=== PATIENT | male | born 1980 | race Hispanic/Latino ===

== ENCOUNTER 2023-11-08 10:50 | Emergency (ER) | payer SELFPAY ==
[2023-11-08 10:50] VITALS: BMI 52.2
[2023-11-08 10:53] VITALS: BP 161/100
[2023-11-08 11:13] LABS: Glucose - Point of Care 304 mg/dl (70-99)
[2023-11-08] MEDS: PERCOCET 5/325 1 TABLET PO (11:13)
--- NOTE | 2023-11-08 11:27 | CM ---
Addendum entered by Nkechi Hamilton RN 11/08/23 12:44:
CM met with patient. CM provided patient with GOOD RX coupon for Doxycycline through [employer]. Patient stated that he is able to purchase his medications bunch with coupon. Patient stated that he uses the over the counter [employer] Insulin and is able
to maintain that until he calls the [facility] [place].
Original Note:
CM was consulted to provide patient with resources as patient is uninsured.
CM met with patient. Patient stated that he felt he was getting depressed and neglected to follow up on his health insurance i.e medicaid renewal. Patient was provided resources on [facility] [place], [facility], [place]
[facility]eds and pamphlet for patient financial services.
CM strongly encourage patient to follow up with [facility] [place] as they can assist with any needs and following up with Medicaid application. Patient was appreciative of help and stated that he plans to follow up.
--- NOTE | 2023-11-08 11:43 | ED.GENMED ---
History of Present Illness
General
Chief Complaint: Skin Problem
Source: patient
Exam Limitations: none
Time Seen by Provider: 11/08/23 10:57
Nursing documentation reviewed up to this point in time: agreed with
Travel History
Have you had any contact with someone who has COVID-19?: No
Do you have any symptoms of coronavirus? Fever > 100 degrees, chills, cough, shortness of breath, sore throat, loss of taste or smell, muscle aches, or headache?: No
History of Present Illness
History of Present Illness:
42-year-old male diabetic hidradenitis currently not working having hard time affording his meds had been on TrulicMilk lost his insurance has been using long-acting insulin twice daily that he buys at [employer] no vomiting, did have some subjective
fever few days ago pain in his right arm multiple lesions throughout his body somewhat drained on their own,
Past History
Past History
ED Past Medical History: HTN, Hypercholesterolemia, IDDM, Psychiatric (Depression) and Other (Abscess, Pancreatitis)
ED Past Surgical History: Cholecystectomy, Orthopedic and Other (Previous abscess drainage)
Social History
Tobacco: Smoker
Alcohol: Occasional
Drug: None
Personal: Single
Living: with family
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
Family History
Family History: Diabetes; Negative CAD
Review of Systems
Review of Systems
All Other Systems: Not applicable
Constitutional: Reports fever
EENT: Reports no symptoms
Respiratory: Reports no symptoms
Cardiac: Reports no symptoms
ABD/GI: Denies abdominal pain or vomiting
: Reports no symptoms
Skin: Reports other (Multiple skin boils in various stages of healing)
Endocrine: Reports polyuria
Hematologic/Lymphatic: Reports no symptoms
Phy Exam
Physical Exam
Physical Exam:
Physical Exam
General: Obese nontoxic male
Neck: 2 x 4 cm tender fluctuant area in the right adnexa
Heart: s1/s2 regular rate and rhythm, no murmur. equal radial pulses.
Lungs: no acute respiratory distress. clear bilaterally
Abdomen: Obese not tender
Neuro: alert and oriented. no focal neurological deficits
Skin: Multiple healing lesions
Psychiatric: well kept. interactive and cooperative
Extremities: no edema.
Course
Orders/Labs/Results
Orders:
Orders
11/08/23 11:05
Oxycodone/Acetaminophen [Percocet 5/325] 1 tablet PO NOW STA
11/08/23 11:06
Bedside Glucose- Treatment ONCE
11/08/23 11:35
Complete Blood Count/With Diff Urgent
Comprehensive Metabolic Panel Urgent
11/08/23 11:45
Blood Culture Urgent
[facility] Source: Blood/Venous
Specimen Description:
11/08/23 11:48
Wound Culture [Wound/Abscess/Other Culture] Routine
[facility] Source: Abscess
Specimen Description:
Date Specimen was Collected: 11/08/23
Time Specimen was Collected: 11:47
Abnormal Lab Results
11/08/23 11/08/23
11:12 11:35
MPV 11.4 H fL
(7.4-10.4)
Abs Immat Gran (auto) 0.1 H 10^3/uL
(0-0.05)
Absolute Neuts (auto) 6.6 H 10^3/uL
(1.4-6.5)
Absolute Monos (auto) 0.8 H 10^3/uL
(0.1-0.6)
Sodium 133 L mmol/L
(135-145)
Creatinine 0.5 L mg/dL
(0.7-1.3)
Glucose 290 H mg/dl
(70-99)
AST 71 H U/L
(17-59)
ALT 90 H U/L
(0-50)
Alkaline Phosphatase 141 H U/L
(38-126)
POC Glucose 304 H mg/dl
(70-99)
11/08/23 11:35
11/08/23 11:35
Vital Signs
Initial and Last Documented VS:
Initial Vital Signs
Temp Pulse Resp BP Pulse Ox
98.3 F 99 16 161/100 98
11/08/23 10:53 11/08/23 10:53 11/08/23 10:53 11/08/23 10:53 11/08/23 10:53
Last Documented Vital Signs
Temp Pulse Resp BP Pulse Ox
98.3 F 99 16 161/100 98
11/08/23 10:53 11/08/23 10:53 11/08/23 10:53 11/08/23 10:53 11/08/23 10:53
Procedures
Incision/Drainage/Joint Aspiration
Right axilla:
Anethesia: 1% Lidocaine with Epi
Preparation: cleaned with Betadine
Nature of site: abscess
Description of abscess: greater than 3cm
How much fluid was obtained?: large amount
Fluid description: purulent
Treatment: left open for drainage
Additional information:
Completed by Teresa ZHENG
MDM/Problems Addressed
Differential Diagnosis Includes:
Hidradenitis, cellulitis, noncompliance uncontrolled diabetes
MDM/Problems Addressed:
Armpit abscess
Chronic conditions affecting care: DM
Acute Exacerbation and/or Progression of Chronic Illness: DM
*Pulse Oximetry
Patient hypoxic: no
*Critical Care Note
Total Time (30-74mins, 75-104mins- exclusive of procedures): Not Applicable
Update Note
Update Note:
Update patient nontoxic Accu-Chek noted will check labs, telephonic case manager seen the patient to try to help him with insurance
Abscess drained labs noted white count okay
ED Attending Note
-
Portions of this chart may have been created with voice recognition software.� Occasional wrong word or��sound alike� substitutions may have occurred due to the inherent limitations of voice recognition software.
Discharge Plan
Departure
Patient Disposition: Home (Routine Discharge)
Date of Disposition: 11/08/23
Time of Disposition: 12:13
Patient with high blood pressure during this ER visit?: No
Condition: Good
Discharge Problem:
Hidradenitis suppurativa
Instructions: Cellulitis (Skin Infection), Adult (DC), Skin Abscess
Prescriptions:
New
doxycycline monohydrate 100 mg tablet
100 mg PO BID Qty: 20 0RF
ibuprofen 600 mg tablet
600 mg PO Q8H PRN (Reason: fever or pain) Qty: 20 0RF
No Action
lisinopril 20 MG tablet
20 mg PO DAILY
metformin 1,000 MG tablet
1,000 mg PO BID@0800,1700
acetaminophen 325 MG tablet
650 mg PO Q6HPRN PRN (Reason: mild pain/ fever>100.5F) 0RF
amlodipine 5 MG tablet
5 mg PO DAILY Qty: 30 0RF
celecoxib 200 MG capsule
200 mg PO DAILY
insulin glargine [Basaglar KwikPen U-100 Insulin] 100 UNIT/ML insulin pen
22 unit SQ HS
ibuprofen 200 MG tablet
200 mg PO PRN PRN (Reason: fever)
clindamycin HCl 300 MG capsule
300 mg PO TID Qty: 29 0RF
tramadol [Ultram] 50 MG tablet
50 mg PO Q4HPRN PRN (Reason: pain) Qty: 10 0RF
ibuprofen 800 MG tablet
800 mg PO QIDPRN PRN (Reason: pain, fever. Take with food.) Qty: 30 0RF
amlodipine 5 MG tablet
5 mg PO DAILY Qty: 90 0RF
doxycycline hyclate 100 MG tablet
100 mg PO BID Qty: 20 0RF
hydrocodone-acetaminophen 1 TABLET tablet
1 tab PO Q4HPRN PRN (Reason: Pain) Qty: 10 0RF
oxycodone-acetaminophen 5 MG/325 MG tablet
1 tab PO Q6HPRN PRN (Reason: pain) Qty: 12 0RF
sulfamethoxazole-trimethoprim 1 TABLET tablet
1 tab PO BID Qty: 5 0RF
cephalexin 500 MG capsule
500 mg PO QID Qty: 30 0RF
pantoprazole 40 MG tablet,delayed release (DR/EC)
40 mg PO DAILY Qty: 10 0RF
oxycodone 5 MG tablet
5 mg PO Q6HPRN PRN (Reason: severe pain) Qty: 9 0RF
doxycycline hyclate 100 MG capsule
100 mg PO Q12 Qty: 10 0RF
hydrocodone-acetaminophen 5-300 mg tablet
1 tab PO Q8H PRN (Reason: pain) Qty: 10 0RF
clindamycin HCl 300 mg capsule
300 mg PO TID Qty: 30 0RF
hydrocodone-acetaminophen 5-325 mg tablet
1 tab PO Q6H PRN (Reason: pain) Qty: 7 0RF
clindamycin HCl 150 mg capsule
450 mg PO Q8H 7 Days Qty: 63 0RF
oxycodone 5 mg tablet
5 mg PO Q8H PRN (Reason: pain) Qty: 7 0RF
sulfamethoxazole-trimethoprim [Bactrim DS] 800-160 mg tablet
1 tab PO BID Qty: 14 0RF
hydrocodone-acetaminophen 5-300 mg tablet
1 tab PO Q8H PRN (Reason: Pain) Qty: 10 0RF
doxycycline hyclate 100 mg capsule
100 mg PO BID 10 Days Qty: 20 0RF
cephalexin 500 mg capsule
500 mg PO QID 7 Days Qty: 28 0RF
hydrocodone-acetaminophen 5-300 mg tablet
1 tab PO Q8H PRN (Reason: Pain) Qty: 10 0RF
cephalexin 500 mg capsule
500 mg PO Q6H 10 Days Qty: 40 0RF
hydrocodone-acetaminophen 5-325 mg tablet
1 tab PO Q4H PRN (Reason: Pain) Qty: 10 0RF
hydrocodone-acetaminophen 5-325 mg tablet
1 tab PO Q8H PRN (Reason: Pain) Qty: 10 0RF
Referrals:
NONE,* [Active] -
Charlie Alves MD [Active] - Next open appointment
Kadi Bland MD [Family Provider] -
Activity Restrictions/Additional Instructions:
Follow-up with an [facility] or the residency clinic and oriented as instructed by case management
Interventions
Interventions:
*Risk Screen - Suicide Last Done: 11/08/23 11:15
*General Assessment Last Done: 11/08/23 11:15
*Neglect/Abuse Screening Last Done: 11/08/23 11:15
*ED COVID-19 Vaccine History Last Done: 11/08/23 10:53
ED-Skin Assessment Last Done: 11/08/23 11:15
[2023-11-08 11:47] LABS: % Basophils 0.2 % (0-2); % Eosinophils 1.2 % (0-6); % Immature Granulocytes 0.5 % (0-0.5); % Lymphocytes 21.5 % (20.5-51.1); % Neutrophils 68.6 % (42.2-75.2); Absolute Eosinophils 0.1 10^3/uL (0-0.7); Absolute Immature Granulocytes 0.1 10^3/uL (0-0.05); Absolute Lymphocytes 2.1 10^3/uL (1.2-3.4); Absolute Monocytes 0.8 10^3/uL (0.1-0.6); Absolute Neutrophils 6.6 10^3/uL (1.4-6.5); Hematocrit 44.2 % (39.0-52.0); Hemoglobin 14.7 g/dL (13.0-18.0); Mean Corp Hgb Conc. 33.3 g/dL (33.0-37.0); Mean Corpuscular Hgb 29.9 pg (27.0-31.0); Mean Corpuscular Volume 89.8 fL (80.0-94.0); Mean Platelet Volume 11.4 fL (7.4-10.4); Nucleated Red Blood Cells % 0 % (-); Platelet Count 183 10^3/uL (130-400); Red Blood Cell Count 4.92 10^6/uL (4.70-6.10); Red Cell Dist. Width 13.1 % (11.5-14.5); White Blood Cell Count 9.6 10^3/uL (4.8-10.8)
[2023-11-08 12:03] LABS: ALT (SGPT) 90 U/L (0-50); AST (SGOT) 71 U/L (17-59); Albumin 3.6 g/dl (3.5-5.0); Alkaline Phosphatase 141 U/L (38-126); Blood Urea Nitrogen 15 mg/dl (9-20); Calcium 8.6 mg/dl (8.4-10.2); Carbon Dioxide 27 mmol/L (22-30); Chloride 102 mmol/L (98-107); Estimated Creatinine Clearance > 125 ml/min; Glucose 290 mg/dl (70-99); Potassium 4.1 mmol/L (3.5-5.1); Sodium 133 mmol/L (135-145); Total Bilirubin 0.7 mg/dl (0.2-1.3); Total Protein 6.6 g/dl (6.3-8.2); eGFR > 60.00
== END 2023-11-08 13:21 | disposition home or self-care (01) ==
LOC: EMR 10:50
PROVIDERS: EMERGENCY PHYSICIAN Emergency Medicine; FAMILY PHYSICIAN Student in an Organized Health Care Education/Training Program
DX: L73.2 Hidradenitis suppurativa (principal); F17.200 Nicotine dependence, unspecified, uncomplicated; E11.9 Type 2 diabetes mellitus without complications; Z79.4 Long term (current) use of insulin
CPT/HCPCS: 99283; 10060; 80053; 82962; 85025; 87040; 87070; 87071; 87186; 87205

== ENCOUNTER 2023-11-18 14:33 | Inpatient (IN) | payer OTHER, SELFPAY ==
[2023-11-18 08:49] VITALS: BP 188/98
[2023-11-18 10:02] LABS: % Basophils 0.4 % (0-2); % Eosinophils 1.1 % (0-6); % Immature Granulocytes 0.4 % (0-0.5); % Lymphocytes 20.3 % (20.5-51.1); % Monocytes 6.4 % (1.7-9.3); % Neutrophils 71.4 % (42.2-75.2); Absolute Eosinophils 0.1 10^3/uL (0-0.7); Absolute Immature Granulocytes 0.1 10^3/uL (0-0.05); Absolute Lymphocytes 2.3 10^3/uL (1.2-3.4); Absolute Monocytes 0.7 10^3/uL (0.1-0.6); Hematocrit 44.8 % (39.0-52.0); Hemoglobin 15.2 g/dL (13.0-18.0); Mean Corp Hgb Conc. 33.9 g/dL (33.0-37.0); Mean Corpuscular Volume 88.5 fL (80.0-94.0); Mean Platelet Volume 10.9 fL (7.4-10.4); Nucleated Red Blood Cells % 0 % (-); Platelet Count 208 10^3/uL (130-400); Red Blood Cell Count 5.06 10^6/uL (4.70-6.10); Red Cell Dist. Width 12.9 % (11.5-14.5); White Blood Cell Count 11.2 10^3/uL (4.8-10.8)
--- NOTE | 2023-11-18 10:03 | ED.GENMED ---
History of Present Illness
General
Chief Complaint: Skin Problem
Source: patient
Time Seen by Provider: 11/18/23 09:26
Travel History
Have you had any contact with someone who has COVID-19?: No
Do you have any symptoms of coronavirus? Fever > 100 degrees, chills, cough, shortness of breath, sore throat, loss of taste or smell, muscle aches, or headache?: No
History of Present Illness
History of Present Illness:
42-year-old male with past medical history of hypertension, hyperlipidemia, diabetes, hidradenitis suppurativa presenting to the emergency department for evaluation of 2 suspected abscesses to the left upper thigh and suprapubic region. Patient was
seen in this emergency department about 10 days ago for an abscess to his right axillary region. He notes that he has been taking the antibiotics prescribed to him as requested. Patient notes that his hidradenitis had been under control for quite
some time. He is overall unsure as to why he has had these recurring instances over the last 2 weeks. Patient notes that his blood sugars have been quite elevated over the last few weeks. Of note, patient lost his insurance and has been unable to
follow-up with any medical care provider. He notes that he had been on Trulicity previously and doing well with his diabetes but after he was unable to fill this any longer he went back to only long-acting insulin in the morning and evening but
notes that he had been previously on insulin with meals as well but was unable to take this. Patient also notes that he is running out of his lisinopril. He is not sure when he will be able to follow-up with any other medical care provider.
Past History
Past History
ED Past Medical History: HTN, Hypercholesterolemia, IDDM, Psychiatric (Depression) and Other (Abscess, Pancreatitis)
ED Past Surgical History: Cholecystectomy, Orthopedic and Other (Previous abscess drainage)
Social History
Tobacco: Smoker
Alcohol: Occasional
Drug: None
Personal: Single
Living: with family
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
Family History
Family History: Diabetes; Negative CAD
Review of Systems
Review of Systems
All Other Systems: ROS reviewed and negative except as documented in HPI and ROS
Phy Exam
Physical Exam
Physical Exam:
GENERAL: Alert , in no apparent distress
EYE: conjunctiva clear
NECK: Supple, no significant adenopathy.
ENT: o/p clr, mmm.
CARDIAC: Regular rate and rhythm
LUNGS: Clear breath sounds bilaterally, no acute respiratory distress, no wheezes/rales/rhonchi
NEUROLOGICAL: Alert and oriented
SKIN: Warm and dry, 2 small punctate abscesses. The left thigh is approximately 1 cm in size, mild surrounding erythema, fluctuant and tender to touch. The suprapubic abscess is less than 8 mm, indurated, no fluctuance and very tender to touch.
MUSCULOSKELETAL: well perfused.
PSYCH: Normal and appropriate interaction.
Scores
Heart Failure Risk
Heart Failure Risk Score: Not Applicable
Heart Score for Chest Pain Patients
STEMI patient?: Not applicable
Withdrawal Assessment of Alcohol
Withdrawal Assessment Completed?: Not applicable
Course
Orders/Labs/Results
Orders:
Orders
11/18/23 09:49
Complete Blood Count/With Diff Urgent
Comprehensive Metabolic Panel Urgent
Hemoglobin A1c [Glycohemoglobin (HgbA1c)] Urgent
11/18/23 09:50
Ketorolac [Toradol] 30 mg IV NOW STA
Morphine Sulfate 2 mg IV NOW STA
11/18/23 10:15
Ampicillin/Sulbactam 3 G [Unasyn] 3 gm 0.9% Sodium Chloride 100 ml [Nss] 100 ml IV NOW
11/18/23 10:36
0.9% Sodium Chloride 1000 ml [Nss] 1,000 ml IV BOLUS
Abnormal Lab Results
11/18/23
09:49
WBC 11.2 H 10^3/uL
(4.8-10.8)
MPV 10.9 H fL
(7.4-10.4)
Abs Immat Gran (auto) 0.1 H 10^3/uL
(0-0.05)
Absolute Neuts (auto) 8.0 H 10^3/uL
(1.4-6.5)
Absolute Monos (auto) 0.7 H 10^3/uL
(0.1-0.6)
Lymphocytes % 20.3 L %
(20.5-51.1)
Sodium 134 L mmol/L
(135-145)
Creatinine 0.4 L mg/dL
(0.7-1.3)
Glucose 347 H mg/dl
(70-99)
ALT 79 H U/L
(0-50)
Alkaline Phosphatase 150 H U/L
(38-126)
11/18/23 09:49
11/18/23 09:49
Vital Signs
Initial and Last Documented VS:
Initial Vital Signs
Temp Pulse Resp BP Pulse Ox
98.5 F 99 16 188/98 98
11/18/23 08:49 11/18/23 08:49 11/18/23 08:49 11/18/23 08:49 11/18/23 08:49
Last Documented Vital Signs
Temp Pulse Resp BP Pulse Ox
98.5 F 96 20 188/98 98
11/18/23 08:49 11/18/23 10:53 11/18/23 10:53 11/18/23 08:49 11/18/23 10:53
Procedures
Incision/Drainage/Joint Aspiration
Left Upper Anterior Thigh:
Anethesia: 1% Lidocaine
Preparation: cleaned with Hibiclens
Type of procedure: incise
Nature of site: abscess
Description of abscess: less than 3cm
Loculations broken up: No
How much fluid was obtained?: large amount
Fluid description: purulent and blood tinged
Treatment: left open for drainage
MDM/Problems Addressed
Differential Diagnosis Includes:
Recurring hidradenitis, uncontrolled diabetes, cellulitis
MDM/Problems Addressed:
42-year-old male with past medical history of hidradenitis presenting to the emergency department for 2 new small abscesses/areas of cellulitis to the left thigh and suprapubic region. Patient notes significant discomfort. He has been on
doxycycline for 10 days, today is the last day but he states this did not seem to help him. He denies any fevers. I am concerned about patient's ability to follow-up as he currently does not have insurance, his usual medications have all been
discontinued and he is attempting to treat his chronic medical conditions with medications that clearly are not helping enough. Patient arrives here quite hypertensive, his diabetes clearly not under control which could likely be contributing to
his recurring infections. Will check labs. Pain control with Toradol and low-dose morphine as patient is in considerable discomfort. Will attempt incision and drainage of the abscess to the left thigh. Unasyn ordered. Anticipate admission.
Chronic conditions affecting care: DM
Acute Exacerbation and/or Progression of Chronic Illness: DM
*Pulse Oximetry
Patient hypoxic: no
*Critical Care Note
Total Time (30-74mins, 75-104mins- exclusive of procedures): Not Applicable
Data Reviewed
Review of Other/Old Records Reveals: Records
Patient Management
Discussion with other providers: Hospitalist
Escalation/DeEscalation of care consider admission/obs:
Patient's lab findings noted for mild leukocytosis. He has hyperglycemia with a glucose of 347. Anion gap is 8. There is no acidemia. Patient does have mildly chronic elevated ALT and alkaline phosphatase. Given his lack of outpatient
follow-up, failed outpatient antibiotics and clearly uncontrolled diabetes will admit for further evaluation, hopefully medication adjustments for his diabetes and outpatient management. Patient is agreeable with this plan. Patient does note an
improved pain following medications.
ED Attending Note
-
Portions of this chart may have been created with voice recognition software.� Occasional wrong word or��sound alike� substitutions may have occurred due to the inherent limitations of voice recognition software.
Discharge Plan
Departure
Patient Disposition: Admit
Date of Disposition: 11/18/23
Time of Disposition: 10:38
Presentation/result/management discussed w/ accepting MD/DO: Hospitalist
Discharge Problem:
Abscess of left thigh, Cellulitis of suprapubic region, Diabetes mellitus with hyperglycemia
Prescriptions:
No Action
lisinopril 20 MG tablet
20 mg PO DAILY
metformin 1,000 MG tablet
1,000 mg PO BID@0800,1700
acetaminophen 325 MG tablet
650 mg PO Q6HPRN PRN (Reason: mild pain/ fever>100.5F) 0RF
amlodipine 5 MG tablet
5 mg PO DAILY Qty: 30 0RF
celecoxib 200 MG capsule
200 mg PO DAILY
insulin glargine [Basaglar KwikPen U-100 Insulin] 100 UNIT/ML insulin pen
22 unit SQ HS
ibuprofen 200 MG tablet
200 mg PO PRN PRN (Reason: fever)
clindamycin HCl 300 MG capsule
300 mg PO TID Qty: 29 0RF
tramadol [Ultram] 50 MG tablet
50 mg PO Q4HPRN PRN (Reason: pain) Qty: 10 0RF
ibuprofen 800 MG tablet
800 mg PO QIDPRN PRN (Reason: pain, fever. Take with food.) Qty: 30 0RF
amlodipine 5 MG tablet
5 mg PO DAILY Qty: 90 0RF
doxycycline hyclate 100 MG tablet
100 mg PO BID Qty: 20 0RF
hydrocodone-acetaminophen 1 TABLET tablet
1 tab PO Q4HPRN PRN (Reason: Pain) Qty: 10 0RF
oxycodone-acetaminophen 5 MG/325 MG tablet
1 tab PO Q6HPRN PRN (Reason: pain) Qty: 12 0RF
sulfamethoxazole-trimethoprim 1 TABLET tablet
1 tab PO BID Qty: 5 0RF
cephalexin 500 MG capsule
500 mg PO QID Qty: 30 0RF
pantoprazole 40 MG tablet,delayed release (DR/EC)
40 mg PO DAILY Qty: 10 0RF
oxycodone 5 MG tablet
5 mg PO Q6HPRN PRN (Reason: severe pain) Qty: 9 0RF
doxycycline hyclate 100 MG capsule
100 mg PO Q12 Qty: 10 0RF
hydrocodone-acetaminophen 5-300 mg tablet
1 tab PO Q8H PRN (Reason: pain) Qty: 10 0RF
clindamycin HCl 300 mg capsule
300 mg PO TID Qty: 30 0RF
hydrocodone-acetaminophen 5-325 mg tablet
1 tab PO Q6H PRN (Reason: pain) Qty: 7 0RF
clindamycin HCl 150 mg capsule
450 mg PO Q8H 7 Days Qty: 63 0RF
oxycodone 5 mg tablet
5 mg PO Q8H PRN (Reason: pain) Qty: 7 0RF
sulfamethoxazole-trimethoprim [Bactrim DS] 800-160 mg tablet
1 tab PO BID Qty: 14 0RF
hydrocodone-acetaminophen 5-300 mg tablet
1 tab PO Q8H PRN (Reason: Pain) Qty: 10 0RF
doxycycline hyclate 100 mg capsule
100 mg PO BID 10 Days Qty: 20 0RF
cephalexin 500 mg capsule
500 mg PO QID 7 Days Qty: 28 0RF
hydrocodone-acetaminophen 5-300 mg tablet
1 tab PO Q8H PRN (Reason: Pain) Qty: 10 0RF
cephalexin 500 mg capsule
500 mg PO Q6H 10 Days Qty: 40 0RF
hydrocodone-acetaminophen 5-325 mg tablet
1 tab PO Q4H PRN (Reason: Pain) Qty: 10 0RF
hydrocodone-acetaminophen 5-325 mg tablet
1 tab PO Q8H PRN (Reason: Pain) Qty: 10 0RF
doxycycline monohydrate 100 mg tablet
100 mg PO BID Qty: 20 0RF
ibuprofen 600 mg tablet
600 mg PO Q8H PRN (Reason: fever or pain) Qty: 20 0RF
oxycodone 5 mg capsule
5 mg PO Q8H PRN (Reason: Pain) Qty: 10 0RF
oxycodone 5 mg tablet
5 mg PO Q8H PRN (Reason: Pain) Qty: 10 0RF
Rx Instructions:
[address] [place] [id number]
Referrals:
PRIVATE,PHYSICIAN [Family Provider] -
Interventions
Interventions:
*Risk Screen - Suicide Last Done: 11/18/23 09:34
*General Assessment Last Done: 11/18/23 09:34
*Neglect/Abuse Screening Last Done: 11/18/23 09:34
*ED COVID-19 Vaccine History Last Done: 11/18/23 08:49
[2023-11-18 10:11] LABS: ALT (SGPT) 79 U/L (0-50); AST (SGOT) 53 U/L (17-59); Albumin 3.5 g/dl (3.5-5.0); Alkaline Phosphatase 150 U/L (38-126); Blood Urea Nitrogen 11 mg/dl (9-20); Carbon Dioxide 28 mmol/L (22-30); Chloride 98 mmol/L (98-107); Glucose 347 mg/dl (70-99); Potassium 4.2 mmol/L (3.5-5.1); Sodium 134 mmol/L (135-145); Total Bilirubin 0.6 mg/dl (0.2-1.3); Total Protein 7.2 g/dl (6.3-8.2); eGFR > 60.00
[2023-11-18] MEDS: MORPHINE SULFATE 2 MG IV ×4 (10:11→23:23)
[2023-11-18] MEDS: TORADOL 30 MG IV (10:11)
[2023-11-18] MEDS: UNASYN IV ×3 (10:36→23:15)
[2023-11-18] MEDS: NSS 1000 IV ×2 (11:21→16:50)
[2023-11-18 11:28] LABS: Glycohemoglobin (HgbA1c) 11.6 % (4.0-5.6)
--- NOTE | 2023-11-18 13:02 | HPS.HSE ---
Family Physician
-
Family Physician: PHYSICIAN PRIVATE
Chief Complaint
-
abscess
History of Present Illness
Ms. Lalit Lamb is a 42 yo woman with hx HTN, HLD, DM, hidradenitis suppurativa with recent ER visit 10 days ago for abscess in right axillary region prescribed doxycycline presents to the ER for new left thigh and suprapubic region abscess.
Patient states that he has had a lot of flares of HS over past few months, sometimes letting it drain at home. He has had multiple ER visits in past. He has been taking doxycycline from last visit but increased pain left thigh and right suprapubic
region. He is tearful from pain. Patient states he does not work although has an interview tomorrow. He has no insurance and has run out of his Repaglinide, HCTZ. He is taking Lantus which he thinks controls his blood sugars worse than Tresiba
which he was on before.
No fevers/chills. No chest pain. He smokes cigarettes and requests nicotine patch. No abdominal pain. No nausea/vomiting. He states that he is trying to lose weight.
Medical History
Past Medical History
Past Medical History: Reports Other (HTN, HLD, DM, hidradenitis suppurativa)
Past Surgical History: Reports Cholecystectomy and Orthopedic
Social History
Tobacco: Smoker
Alcohol: Occasional
Family History
Family History: Not pertinent
Allergies / Home Medications
Allergies reflects when Allergies were last updated in [facility].
Home Medications with original date entered in [facility]
Allergy/Medication List:
Allergies
Allergy/AdvReac Type Severity Reaction Status Date / Time
shellfish derived Allergy Anaphylaxis Verified 11/18/23 08:50
Home Medications
lisinopril 20 mg tablet 40 mg PO DAILY Blood pressure 01/23/20
metformin 1,000 mg tablet 1,000 mg PO BID@0800,1700 Diabetes 01/23/20
insulin glargine 100 unit/mL (3 mL) subcutaneous pen (Basaglar KwikPen U-100 Insulin) 35 unit SQ BID 04/14/20
doxycycline monohydrate 100 mg capsule 100 mg PO BID 11/18/23
ibuprofen 400 mg tablet 400 mg PO Q6HPRN PRN mildpain 11/18/23
repaglinide 0.5 mg tablet 0.5 mg PO DAILY 11/18/23
repaglinide 1 mg tablet 1 mg PO HS 11/18/23
Review of Systems
-
History Source: Patient
A 12 point ROS was completed and negative except as noted: Yes
Physical Exam
Vital Signs
Vital Signs
Temp Pulse Resp BP Pulse Ox
98.5 F 96 20 188/98 98
11/18/23 08:49 11/18/23 10:53 11/18/23 10:53 11/18/23 08:49 11/18/23 10:53
Physical Exam
General: Conversant and Obese
HEENT: PERRLA
Respiratory: Clear; No Wheezes
Cardiac: S1/S2 and Regular Rhythm
GI: Soft and Non Tender
Musculoskeletal: Other (left thigh with area tenderness s/p I&D; suprapubic region with area significant tenderness + induration)
Skin: Warm and Dry
Neuro: AO x 3
Psych: Anxious and Depressed
Laboratory Results
-
11/18/23 09:49
11/18/23 09:49
Laboratory Results
Total Bilirubin 0.6 mg/dl (0.2-1.3) 11/18/23 09:49
AST 53 U/L (17-59) 11/18/23 09:49
ALT 79 U/L (0-50) H 11/18/23 09:49
Alkaline Phosphatase 150 U/L (38-126) H 11/18/23 09:49
Data Reviewed
-
Diagnostic Radiology: Report Reviewed by me
Lab Data: Labs Reviewed by me
Impression/Plan
-
Mr. Lalit Lamb is a 42 yo man with hx HTN, HLD, DM, hidradenitis suppurativa with recent ER visit 10 days ago for abscess in right axillary region prescribed doxycycline presents to the ER for new left thigh and suparpubic region abscess.
Triage VS: T 98.5, P 99, RR 16, BP 188/98, SpO2 98%
LABS: WBC 11.2, Hg 15.2, PLT 208, Na 134, K+ 4.2, Cr 0.4, Glucose 347, A1c 11.6%, T. Bili 0.6, ALT 79, Alk Phos 150
s/p I&D left thigh abscess in ER
MAR: IV Unasyn, Toradol, morphine, IVF
Hidradenitis Suppurativa
Recurrent abscesses
-patient has had multiple ER visits with I&D in past; most recently 11/08 s/p I&D growing Proteus. He has been on Doxycyline with development new abscesses
-s/p I&D left thigh abscess in ER; no culture from today
-warrants admission status with failure to improve on outpatient antibiotics
-admit on IV Vanc/IV Unasyn
-US suprapubic region now given significant tenderness - deeper abscess?
-Toradol/oxy PRN pain with morphine for breakthrough
Hyperglycemia
Poorly Controlled DM II
Insulin Dependent Diabetes
-home regimen is metformin 1G BID; repaglinide 0.5mg AM; 1mg qPM; Lantus 35 units subQ BID
-resume home regimen here
-diabetic diet
-DM ENTRY LEVEL STAFF ACCOUNTANT consult - may need to be texted on Sunday
-ISS moderate
Essential Hypertension
-ANIMAL CRUELTY INVESTIGATOR lisinopril
Hyperlipidemia
-ANIMAL CRUELTY INVESTIGATOR statin
DVT PPx lovenox subQ
FULL CODE
[2023-11-18 13:40] LABS: Glucose - Point of Care 263 mg/dl (70-99)
[2023-11-18 13:43] VITALS: BP 178/88; BMI 52.5
--- NOTE | 2023-11-18 13:57 | PHA.VAN.IN ---
Assessment
- Assessment
Renal Function: Appears similar to baseline
Renal Function may be Overestimated due to: bmi>50
- Previous Dosing Experience
Previous Regimen: 1250mg q8h
Date of Regimen: 02/2020
Provided AUC of: 246
Patient's SCR is: Decreased compared to previous dosing experience
Patient's weight is: Elevated compared to previous dosing experience (166kg (now)vs 155kg (02/2020))
peak drawn >3hrs after previous dose, AUC might not be accurate representation of true level
AUC Dosing Plan
- Dosing Variables
Dosing Weight (kg): 166
Dosing CrCl (ml/min): 125
Vd coefficient (L/kg): 0.4
- Empiric Dosing
Initial / Loading Dose: 2000mg
Maintenance Regimen: 1250mg q8h
Estimated AUC (mcg*h/mL): 565
Estimated Peak (mcg*h/mL): 32.5
Estimated Trough (mcg/ml): 16.1
Estimated Half Life (H): 6.4
- Monitoring
No levels ordered at this time: consider at steady state
Pharmacokinetics Vancomycin I
- -
Patient Age: 42
Patient Sex: Male
Vancomycin Day #: 1
Indication: Skin And Soft Tissue
Requesting Provider: Dr. Jim
Height / Weight:
Height 5 ft 10 in
Actual Weight 166 kg
IBW in k
- Vital Signs / Lab Results
Temp Pulse Resp BP Pulse Ox
98.5 F 88 22 178/88 98
11/18/23 08:49 11/18/23 13:43 11/18/23 13:43 11/18/23 13:43 11/18/23 13:43
Lab Results - Hematology
11/18/23
09:49
WBC 11.2 H
Lab Results - Chemistry
11/18/23
09:49
BUN 11
Creatinine 0.4 L
Albumin 3.5
[2023-11-18] MEDS: VANCOCIN 540 MG IV (15:13)
[2023-11-18] MEDS: NOVOLOG vial 5 UNITS SC (15:13)
[2023-11-18 16:36] VITALS: BP 166/91
[2023-11-18 16:40] VITALS: BMI 50.5
[2023-11-18] MEDS: ROXICODONE 5 MG PO ×2 (16:50→21:22)
[2023-11-18] MEDS: NICODERM TRANSDERMAL 21 MG TRANSDERM (16:50)
[2023-11-18] MEDS: GLUCOPHAGE 1000 MG PO (16:51)
--- NOTE | 2023-11-18 17:00 | PTCARENOTE ---
Received pt from ER.Pt awake alert and oriented x3 Pt c/o pain in groin and left abd/ upper thigh, Medicated per orders. Pt has abscess in groin and open abscess on Left upper thigh under abd fold which has serosanguineous drainage, 4X4 in place. Pt
VSS 97% on RA. Bp elevated but improving since ER. Pt oriented to room, call barrientos within reach, plan of care ongoing.
[2023-11-18] MEDS: LOVENOX 40 MG SC (17:24)
[2023-11-18 17:25] LABS: Glucose - Point of Care 241 mg/dl (70-99)
[2023-11-18] MEDS: NOVOLOG FLEXPEN-MODERATE RESISTANCE 3 UNITS SC (17:25)
[2023-11-18 19:23] VITALS: BP 170/97
[2023-11-18 21:02] LABS: Glucose - Point of Care 216 mg/dl (70-99)
[2023-11-18] MEDS: LANTUS 0.200000000000000011 UNITS SC (21:10)
[2023-11-18] MEDS: PRANDIN 1 MG PO (21:11)
[2023-11-18] MEDS: DESENEX/MITRAZOL/ZEASORB 1 APPLIC TOPICAL (21:12)
[2023-11-18 22:25] VITALS: BP 152/90
[2023-11-18 23:09] VITALS: BP 171/107
--- NOTE | 2023-11-18 23:40 | PTCARENOTE ---
Patient's blood pressure elevated overnight, 170s/90s-100s. Patient complaining of headache as well as pain to abscess sites. PRN pain medications given as ordered. MAINTENANCE AND REPAIR WORKER made aware, 1x dose of lisinopril ordered. Patient stated he took his AM
lisinopril prior to coming into the hospital and refused additional dose. MAINTENANCE AND REPAIR WORKER made aware, no new orders at this time.
[2023-11-19] MEDS: ROXICODONE 5 MG PO ×5 (02:49→22:10)
[2023-11-19 03:04] VITALS: BP 138/87
[2023-11-19] MEDS: UNASYN IV ×3 (05:15→17:39)
[2023-11-19] MEDS: MORPHINE SULFATE 2 MG IV ×3 (05:29→19:58)
[2023-11-19] MEDS: VANCOCIN 275 MG IV ×3 (05:50→21:24)
[2023-11-19 05:59] VITALS: BMI 50.7
[2023-11-19] MEDS: TYLENOL 650 MG PO ×2 (06:03→11:45)
[2023-11-19 07:30] VITALS: BP 135/81
[2023-11-19 07:35] LABS: Glucose - Point of Care 156 mg/dl (70-99)
[2023-11-19] MEDS: NICODERM TRANSDERMAL 21 MG TRANSDERM (08:02)
[2023-11-19] MEDS: LANTUS 0.200000000000000011 UNITS SC (08:03)
[2023-11-19] MEDS: GLUCOPHAGE 1000 MG PO ×2 (08:04→17:38)
[2023-11-19] MEDS: PRANDIN 0.5 MG PO (08:04)
[2023-11-19] MEDS: ZESTRIL 40 MG PO (08:05)
[2023-11-19] MEDS: NOVOLOG FLEXPEN-MODERATE RESISTANCE 1 UNITS SC (08:06)
[2023-11-19] MEDS: DESENEX/MITRAZOL/ZEASORB 1 APPLIC TOPICAL ×2 (08:06→20:00)
[2023-11-19 08:09] LABS: % Basophils 0.5 % (0-2); % Eosinophils 1.6 % (0-6); % Immature Granulocytes 0.5 % (0-0.5); % Lymphocytes 25.3 % (20.5-51.1); % Neutrophils 65.1 % (42.2-75.2); Absolute Basophils 0.1 10^3/uL (0-0.2); Absolute Eosinophils 0.2 10^3/uL (0-0.7); Absolute Immature Granulocytes 0.1 10^3/uL (0-0.05); Absolute Lymphocytes 2.6 10^3/uL (1.2-3.4); Absolute Monocytes 0.7 10^3/uL (0.1-0.6); Absolute Neutrophils 6.7 10^3/uL (1.4-6.5); Hematocrit 44.7 % (39.0-52.0); Hemoglobin 14.8 g/dL (13.0-18.0); Mean Corp Hgb Conc. 33.1 g/dL (33.0-37.0); Mean Corpuscular Volume 90.5 fL (80.0-94.0); Mean Platelet Volume 11.5 fL (7.4-10.4); Nucleated Red Blood Cells % 0 % (-); Platelet Count 183 10^3/uL (130-400); Red Blood Cell Count 4.94 10^6/uL (4.70-6.10); Red Cell Dist. Width 13.2 % (11.5-14.5); White Blood Cell Count 10.3 10^3/uL (4.8-10.8)
[2023-11-19 08:34] LABS: Blood Urea Nitrogen 10 mg/dl (9-20); Calcium 8.6 mg/dl (8.4-10.2); Carbon Dioxide 29 mmol/L (22-30); Chloride 100 mmol/L (98-107); Estimated Creatinine Clearance > 125 ml/min; Glucose 153 mg/dl (70-99); Magnesium 1.9 mg/dl (1.6-2.3); Potassium 3.6 mmol/L (3.5-5.1); Sodium 137 mmol/L (135-145); eGFR > 60.00
--- NOTE | 2023-11-19 08:38 | PN.DE.MGMTRT ---
Insulin Management
- -
11/19/2023: Diabetes Management Consult:
42 year old male with hx HTN, HLD, DM, hidradenitis suppurativa, who p/w new left thigh and suprapubic region abscess.
Pt follows up at the [facility] for diabetes management. Prior to admission was supposed to take Basaglar 35 units BID with Metformin 1000 mg BID and Repaglinide 1mg TID, A1C 11.6%, states he has a working meter and enough supplies at home.
He is currently ordered Repaglinide 0.5mg in AM and 1mg @ HS and Lantus 20 units BID, premeal glucose is 156 to 263, FBG 153 this AM
Will increase Lantus to 25 units BID and change repaglinide to 1mg TID with meals.
Cont Metformin 1000 mg BID and corrective insulin.
Will cont to follow and make further adjustments as necessary.
Diabetes History
- -
Type of Diabetes: 2 requiring insulin
Pre-Admission Diabetes Regimen
11/18/23 11/19/23
09:49 07:05
Creatinine 0.4 L 0.4 L
Lab Results
Hemoglobin A1c 11.6 % (4.0-5.6) H 11/18/23 09:49
Insulin Pump Settings
IP Diabetes Regimen
11/18/23 11/18/23 11/18/23
09:49 13:39 17:22
Glucose 347 H
POC Glucose 263 H 241 H
11/18/23 11/19/23 11/19/23
21:00 07:05 07:34
Glucose 153 H
POC Glucose 216 H 156 H
Meal type: Dinner
Amount consumed: 100%
Patient Education
--- NOTE | 2023-11-19 09:08 | PHA.VAN.FU ---
Vancomycin Assessment / Plan
- Assessment
Renal Function: Stable
WBC's are: Trending Down
In the past 24 hrs, patient has been: Afebrile
Concomitant Antimicrobials: ampicillin/sulbactam
- Dosing Plan
Continue: Vanc 1250mg Q8H
- Monitoring Plan
No level(s) ordered at this time: may be slow to accumulate with BMI
Monitoring Comments: consider levels in next few days
- Follow Up
Pharmacy will continue to follow.
Vancomycin Follow UP
- -
Patient Age: 42
Patient Sex: Male
Vancomycin Day #: 2
Indication: Skin And Soft Tissue
Requesting Provider: Dr. Jim
Pertinent Antimicrobial Allergies:
no pertinent antibiotic allergies
Height / Weight:
Height 5 ft 10 in
Actual Weight 160.254 kg
IBW in k
Pertinent Past Medical History: BMI ~50.7, DM
- Vital Signs / Lab Results
Temp Pulse Resp BP Pulse Ox
98.2 F 88 19 135/81 96
11/19/23 07:30 11/19/23 07:30 11/19/23 07:30 11/19/23 07:30 11/19/23 07:30
Lab Results - Hematology
11/18/23 11/19/23
09:49 07:05
WBC 11.2 H 10.3
Lab Results - Chemistry
11/18/23 11/19/23
09:49 07:05
BUN 11 10
Creatinine 0.4 L 0.4 L
Estimated Creat Clear > 125
Albumin 3.5
--- NOTE | 2023-11-19 10:46 | CM ---
manager life sciences reviewed patient's chart and met with patient who reports that he lives with his mother in an apartment, patient is independent with adl's and ambulation, patient drives, patient currently has no insurance, patient has been provided
with information on [facility] in past and case fitter reached to to the [facility] today to see if they can see patient at bedside. Patient also follows with [facility] for his medications and was provided with [employer] Rx Coupon.
Plan; To follow up with [facility] and [facility] to see if they can initiated Medicaid application for patient as patient has let his Medicaid lapse.
[2023-11-19 11:24] LABS: Glucose - Point of Care 208 mg/dl (70-99)
[2023-11-19] MEDS: NOVOLOG FLEXPEN-MODERATE RESISTANCE 3 UNITS SC (11:41)
[2023-11-19] MEDS: PRANDIN 1 MG PO ×2 (11:46→17:39)
--- NOTE | 2023-11-19 12:15 | W.PN.HOSP.TC ---
Today's Communication/Plan
-
Monitor vitals
See plan
Monitor blood sugar
Continue with antibiotics
assistant operations manager evaluation for possible Medicaid
Continue with Lisinopril
Assessment / Plan
Assessment / Plan
General: Conversant and Obese
HEENT: PERRLA
Respiratory: Clear; No Wheezes
Cardiac: S1/S2 and Regular Rhythm
GI: Soft and Non Tender
Musculoskeletal: Other (left thigh with area tenderness s/p I&D; suprapubic region with area significant tenderness + induration)
Skin: Warm and Dry
Neuro: AO x 3
Psych: calm
Hidradenitis Suppurativa
Recurrent abscesses
-patient has had multiple ER visits with I&D in past; most recently 11/08 s/p I&D growing Proteus.� He has been on Doxycyline with development new abscesses
-s/p I&D left thigh abscess in ER; no culture from today; per previous cx can do augmentin on dc
-warrants admission status with failure to improve on outpatient antibiotics
-admit on IV Vanc/IV Unasyn
-US groin region without any fluid collection
-Toradol/oxy PRN pain with morphine for breakthrough
Unfortunately has no insurance so follow-ups are challenging
Hyperglycemia
Poorly Controlled DM II
Insulin Dependent Diabetes
-home regimen is metformin 1G BID; repaglinide 0.5mg AM; 1mg qPM; Lantus 35 units subQ BID
Continue with Lantus, repaglinide, metformin. Per patient he ran out of prescription for repaglinide
-diabetic diet
-DM CORPORATE DIRECTOR TALENT ASSESSMENT consult - may need to be texted on Sunday
-ISS moderate
Essential Hypertension
-FINGERER lisinopril
Hyperlipidemia
-FINGERER statin
DVT PPx lovenox subQ
FULL CODE
Anticipated Discharge: 24 - 48 hours
Subjective/Interval History
-
Date of Service: November 19, 2023
pain is improving
Objective Data
-
Labs:
Laboratory Results
11/19/23
07:05
WBC 10.3
Hgb 14.8
Hct 44.7
Plt Count 183
Sodium 137
Potassium 3.6
Chloride 100
Carbon Dioxide 29
BUN 10
Creatinine 0.4 L
Glucose 153 H
Calcium 8.6
Vital Signs:
Vital Signs
Temp Pulse Resp BP Pulse Ox
98.2 F 88 19 135/81 96
11/19/23 07:30 11/19/23 07:30 11/19/23 07:30 11/19/23 07:30 11/19/23 08:00
I&O
11/18/23 11/19/23 11/20/23
06:59 06:59 06:59
Intake Total 900 / 900
Balance 900 / 900
[2023-11-19] MEDS: TORADOL 10 MG IV (15:16)
[2023-11-19 15:30] VITALS: BP 159/96
[2023-11-19] MEDS: LOVENOX 40 MG SC (17:39)
[2023-11-19] MEDS: ORETIC 12.5 MG PO (17:39)
[2023-11-19 17:42] LABS: Glucose - Point of Care 130 mg/dl (70-99)
[2023-11-19] MEDS: NOVOLOG FLEXPEN-MODERATE RESISTANCE SC (17:42)
[2023-11-19 21:18] LABS: Glucose - Point of Care 132 mg/dl (70-99)
[2023-11-19] MEDS: MELATONIN 3 MG PO (21:23)
[2023-11-19] MEDS: LANTUS 0.25 UNITS SC (21:23)
[2023-11-19 23:32] VITALS: BP 156/84
[2023-11-20] MEDS: UNASYN IV ×5 (01:03→23:39)
[2023-11-20] MEDS: ROXICODONE 5 MG PO ×4 (03:59→21:34)
[2023-11-20] MEDS: VANCOCIN 275 MG IV ×3 (05:56→21:36)
[2023-11-20 06:07] LABS: Glucose - Point of Care 163 mg/dl (70-99)
[2023-11-20] MEDS: TYLENOL 650 MG PO ×2 (06:07→22:45)
--- NOTE | 2023-11-20 07:24 | PN.DE.MGMTRT ---
Insulin Management
- -
11/19/2023: Diabetes Management Consult:
42 year old male with hx HTN, HLD, DM, hidradenitis suppurativa, who p/w new left thigh and suprapubic region abscess.
Pt follows up at the [facility] for diabetes management. Prior to admission was supposed to take Basaglar 35 units BID with Metformin 1000 mg BID and Repaglinide 1mg TID, A1C 11.6%, states he has a working meter and enough supplies at home.
He is currently ordered Repaglinide 0.5mg in AM and 1mg @ HS and Lantus 20 units BID, premeal glucose is 156 to 263, FBG 153 this AM
Will increase Lantus to 25 units BID and change repaglinide to 1mg TID with meals.
Cont Metformin 1000 mg BID and corrective insulin.
Will cont to follow and make further adjustments as necessary.
11/20/2023 Diabetes Management Follow up
Lantus doses increased yesterday from 20 units BID to 25 units BID, first dose @ hs last night. Repaglinide increased to 1 mg TID, metformin remains 1000 mg BID. Glucose stable, will follow today for further needed adjustments.
Diabetes History
- -
Type of Diabetes: 2
Pre-Admission Diabetes Regimen
11/19/23
07:05
Creatinine 0.4 L
Lab Results
Hemoglobin A1c 11.6 % (4.0-5.6) H 11/18/23 09:49
Insulin Pump Settings
IP Diabetes Regimen
11/19/23 11/19/23 11/19/23
07:05 07:34 11:22
Glucose 153 H
POC Glucose 156 H 208 H
11/19/23 11/19/23 11/20/23
17:41 21:17 06:06
Glucose
POC Glucose 130 H 132 H 163 H
Meal type: Dinner
Meal type: Lunch
Meal type: Breakfast
Amount consumed: 100%
Amount consumed: 100%
Amount consumed: 100%
Patient Education
[2023-11-20 07:26] LABS: Glucose - Point of Care 209 mg/dl (70-99)
[2023-11-20 07:30] VITALS: BP 146/101
[2023-11-20 07:52] LABS: % Basophils 0.3 % (0-2); % Eosinophils 1.7 % (0-6); % Immature Granulocytes 0.5 % (0-0.5); % Lymphocytes 27.4 % (20.5-51.1); % Monocytes 7.4 % (1.7-9.3); % Neutrophils 62.7 % (42.2-75.2); Absolute Eosinophils 0.2 10^3/uL (0-0.7); Absolute Immature Granulocytes 0.1 10^3/uL (0-0.05); Absolute Lymphocytes 2.7 10^3/uL (1.2-3.4); Absolute Monocytes 0.7 10^3/uL (0.1-0.6); Absolute Neutrophils 6.1 10^3/uL (1.4-6.5); Hematocrit 45.2 % (39.0-52.0); Hemoglobin 15.2 g/dL (13.0-18.0); Mean Corp Hgb Conc. 33.6 g/dL (33.0-37.0); Mean Corpuscular Volume 89.2 fL (80.0-94.0); Mean Platelet Volume 11.6 fL (7.4-10.4); Nucleated Red Blood Cells % 0 % (-); Platelet Count 208 10^3/uL (130-400); Red Blood Cell Count 5.07 10^6/uL (4.70-6.10); Red Cell Dist. Width 13.1 % (11.5-14.5); White Blood Cell Count 9.8 10^3/uL (4.8-10.8)
[2023-11-20 08:02] LABS: ALT (SGPT) 79 U/L (0-50); AST (SGOT) 77 U/L (17-59); Albumin 3.2 g/dl (3.5-5.0); Alkaline Phosphatase 95 U/L (38-126); Blood Urea Nitrogen 9 mg/dl (9-20); Calcium 8.9 mg/dl (8.4-10.2); Carbon Dioxide 29 mmol/L (22-30); Chloride 98 mmol/L (98-107); Estimated Creatinine Clearance > 125 ml/min; Glucose 171 mg/dl (70-99); Potassium 3.8 mmol/L (3.5-5.1); Sodium 135 mmol/L (135-145); Total Bilirubin 0.8 mg/dl (0.2-1.3); Total Protein 6.7 g/dl (6.3-8.2); eGFR > 60.00
--- NOTE | 2023-11-20 08:11 | PHA.VAN.FU ---
Vancomycin Assessment / Plan
- Assessment
Renal Function: Stable
WBC's are: WNL
In the past 24 hrs, patient has been: Afebrile
Concomitant Antimicrobials: ampicillin/sulbactam
- Dosing Plan
Continue: Vanc 1250mg Q8H
- Monitoring Plan
No level(s) ordered at this time: will hold off on levels for now given short anticipated course
Monitoring Comments: possible discharge
- Follow Up
Pharmacy will continue to follow.
Vancomycin Follow UP
- -
Patient Age: 42
Patient Sex: Male
Vancomycin Day #: 3
Indication: Skin And Soft Tissue
Requesting Provider: Dr. Jim
Pertinent Antimicrobial Allergies:
no pertinent antibiotic allergies
Height / Weight:
Height 5 ft 10 in
Actual Weight 160.254 kg
IBW in k
Pertinent Past Medical History: BMI ~50.7, DM
- Vital Signs / Lab Results
Temp Pulse Resp BP Pulse Ox
97.9 F 90 20 156/84 95
11/19/23 23:32 11/19/23 23:32 11/19/23 23:32 11/19/23 23:32 11/19/23 23:32
Lab Results - Hematology
11/18/23 11/19/23 11/20/23
09:49 07:05 06:54
WBC 11.2 H 10.3 9.8
Lab Results - Chemistry
11/18/23 11/19/23 11/20/23
09:49 07:05 06:54
BUN 11 10 9
Creatinine 0.4 L 0.4 L 0.4 L
Estimated Creat Clear > 125 > 125
Albumin 3.5 3.2 L
[2023-11-20] MEDS: NOVOLOG FLEXPEN-MODERATE RESISTANCE 3 UNITS SC ×2 (08:38→12:30)
[2023-11-20] MEDS: NICODERM TRANSDERMAL 21 MG TRANSDERM (08:39)
[2023-11-20] MEDS: PRANDIN 1 MG PO ×3 (08:40→17:02)
[2023-11-20] MEDS: ORETIC 12.5 MG PO (08:40)
[2023-11-20] MEDS: GLUCOPHAGE 1000 MG PO ×2 (08:40→17:01)
[2023-11-20] MEDS: LANTUS 0.25 UNITS SC ×2 (08:40→21:33)
[2023-11-20] MEDS: ZESTRIL 40 MG PO (08:41)
[2023-11-20] MEDS: DESENEX/MITRAZOL/ZEASORB 1 APPLIC TOPICAL ×2 (08:47→21:34)
--- NOTE | 2023-11-20 11:30 | W.PN.HOSP.TC ---
Today's Communication/Plan
-
Monitor vitals
See Plan
Continue with IV antibiotics
Potential discharge later today or tomorrow
Continue with insulin
Assessment / Plan
Assessment / Plan
General: Conversant and Obese
HEENT: PERRLA
Respiratory: Clear; No Wheezes
Cardiac: S1/S2 and Regular Rhythm
GI: Soft and Non Tender
Musculoskeletal: Other (left thigh with area tenderness s/p I&D; suprapubic region with area significant tenderness + induration)
Skin: Warm and Dry
Neuro: AO x 3
Psych: calm
Hidradenitis Suppurativa
Recurrent abscesses
-patient has had multiple ER visits with I&D in past; most recently 11/08 s/p I&D growing Proteus.� He has been on Doxycyline with development new abscesses
-s/p I&D left thigh abscess in ER; no culture from today; per previous cx can do augmentin on dc
-warrants admission status with failure to improve on outpatient antibiotics
-cw IV Vanc/IV Unasyn
-US groin region without any fluid collection
-Toradol/oxy PRN pain with morphine for breakthrough
Unfortunately has no insurance so follow-ups are challenging
Hyperglycemia
Poorly Controlled DM II
Insulin Dependent Diabetes
-home regimen is metformin 1G BID; repaglinide 0.5mg AM; 1mg qPM; Lantus 35 units subQ BID
Continue with Lantus, repaglinide, metformin. Per patient he ran out of prescription for repaglinide
-diabetic diet
-DM LIQUIFIED NATURAL GAS TECHNICIAN following
-ISS moderate
Essential Hypertension
-FAMILY PRACTICE DOCTOR lisin; HCTZopril
Hyperlipidemia
-FAMILY PRACTICE DOCTOR statin
DVT PPx lovenox subQ
FULL CODE
Anticipated Discharge: Within 24 hours
Subjective/Interval History
-
Date of Service: November 20, 2023
still has some pain
Objective Data
-
Labs:
Laboratory Results
11/20/23
06:54
WBC 9.8
Hgb 15.2
Hct 45.2
Plt Count 208
Sodium 135
Potassium 3.8
Chloride 98
Carbon Dioxide 29
BUN 9
Creatinine 0.4 L
Glucose 171 H
Calcium 8.9
Total Bilirubin 0.8
AST 77 H
ALT 79 H
Alkaline Phosphatase 95
Vital Signs:
Vital Signs
Temp Pulse Resp BP Pulse Ox
97.9 F 83 18 146/101 97
11/20/23 07:30 11/20/23 08:41 11/20/23 07:30 11/20/23 08:41 11/20/23 08:20
I&O
11/19/23 11/20/23 11/21/23
06:59 06:59 06:59
Intake Total 900 / 900 840 / 840
Balance 900 / 900 840 / 840
[2023-11-20 11:52] LABS: Glucose - Point of Care 236 mg/dl (70-99)
[2023-11-20] MEDS: MORPHINE SULFATE 2 MG IV ×2 (13:10→23:39)
[2023-11-20 15:20] VITALS: BP 155/86
--- NOTE | 2023-11-20 16:36 | CM ---
Spoke with patient in room.
Continue IV antibiotics.
Pt given application at [facility] to apply. He was thankful.
[facility].
PLAN Home no needs when medically stable
[2023-11-20 16:52] LABS: Glucose - Point of Care 138 mg/dl (70-99)
[2023-11-20] MEDS: NOVOLOG FLEXPEN-MODERATE RESISTANCE SC (16:54)
[2023-11-20] MEDS: LOVENOX 40 MG SC (17:02)
[2023-11-20 21:04] LABS: Glucose - Point of Care 154 mg/dl (70-99)
[2023-11-20] MEDS: MELATONIN 3 MG PO (21:35)
[2023-11-20 22:38] VITALS: BP 150/86
[2023-11-21] MEDS: UNASYN IV (05:29)
[2023-11-21] MEDS: VANCOCIN 275 MG IV (06:26)
[2023-11-21 07:30] VITALS: BP 159/98
[2023-11-21 07:38] LABS: Glucose - Point of Care 153 mg/dl (70-99)
--- NOTE | 2023-11-21 07:59 | PN.DE.MGMTRT ---
Insulin Management
- -
11/19/2023: Diabetes Management Consult:
42 year old male with hx HTN, HLD, DM, hidradenitis suppurativa, who p/w new left thigh and suprapubic region abscess.
Pt follows up at the [facility] for diabetes management. Prior to admission was supposed to take Basaglar 35 units BID with Metformin 1000 mg BID and Repaglinide 1mg TID, A1C 11.6%, states he has a working meter and enough supplies at home.
He is currently ordered Repaglinide 0.5mg in AM and 1mg @ HS and Lantus 20 units BID, premeal glucose is 156 to 263, FBG 153 this AM
Will increase Lantus to 25 units BID and change repaglinide to 1mg TID with meals.
Cont Metformin 1000 mg BID and corrective insulin.
Will cont to follow and make further adjustments as necessary.
11/20/2023 Diabetes Management Follow up
Lantus doses increased yesterday from 20 units BID to 25 units BID, first dose @ hs last night. Repaglinide increased to 1 mg TID, metformin remains 1000 mg BID. Glucose stable, will follow today for further needed adjustments.
11/21/2023 Diabetes Management Follow up
BID lantus dose 25 units yesterday, glucose range 134 to 236. Will increase BID lantus to 27 units. Will continue metformin 1000 mg BID with repaglinide 1 mg TID. Will follow.
Diabetes History
- -
Type of Diabetes: 2 requiring insulin
Pre-Admission Diabetes Regimen
11/20/23
06:54
Creatinine 0.4 L
Lab Results
Hemoglobin A1c 11.6 % (4.0-5.6) H 11/18/23 09:49
Insulin Pump Settings
IP Diabetes Regimen
11/20/23 11/20/23 11/20/23
06:54 11:48 16:51
Glucose 171 H
POC Glucose 236 H 138 H
11/20/23 11/21/23
21:03 07:37
Glucose
POC Glucose 154 H 153 H
Meal type: Lunch
Amount consumed: 100%
Patient Education
[2023-11-21 08:08] LABS: % Basophils 0.4 % (0-2); % Eosinophils 1.9 % (0-6); % Immature Granulocytes 0.4 % (0-0.5); % Lymphocytes 28.5 % (20.5-51.1); % Monocytes 8.3 % (1.7-9.3); % Neutrophils 60.5 % (42.2-75.2); Absolute Eosinophils 0.2 10^3/uL (0-0.7); Absolute Lymphocytes 2.7 10^3/uL (1.2-3.4); Absolute Monocytes 0.8 10^3/uL (0.1-0.6); Absolute Neutrophils 5.8 10^3/uL (1.4-6.5); Hematocrit 46.9 % (39.0-52.0); Hemoglobin 15.7 g/dL (13.0-18.0); Mean Corp Hgb Conc. 33.5 g/dL (33.0-37.0); Mean Corpuscular Hgb 29.7 pg (27.0-31.0); Mean Corpuscular Volume 88.8 fL (80.0-94.0); Mean Platelet Volume 11.5 fL (7.4-10.4); Nucleated Red Blood Cells % 0 % (-); Platelet Count 200 10^3/uL (130-400); Red Blood Cell Count 5.28 10^6/uL (4.70-6.10); White Blood Cell Count 9.6 10^3/uL (4.8-10.8)
[2023-11-21] MEDS: NOVOLOG FLEXPEN-MODERATE RESISTANCE 1 UNITS SC (08:18)
[2023-11-21] MEDS: ROXICODONE 5 MG PO (08:20)
[2023-11-21] MEDS: ZESTRIL 40 MG PO (08:20)
[2023-11-21] MEDS: ORETIC 12.5 MG PO (08:20)
[2023-11-21] MEDS: PRANDIN 1 MG PO (08:20)
[2023-11-21] MEDS: GLUCOPHAGE 1000 MG PO (08:20)
[2023-11-21] MEDS: LANTUS 0.270000000000000018 UNITS SC (08:22)
[2023-11-21] MEDS: NICODERM TRANSDERMAL 21 MG TRANSDERM (08:23)
[2023-11-21] MEDS: DESENEX/MITRAZOL/ZEASORB TOPICAL (09:20)
[2023-11-21 10:14] LABS: ALT (SGPT) 98 U/L (0-50); AST (SGOT) 84 U/L (17-59); Albumin 3.5 g/dl (3.5-5.0); Alkaline Phosphatase 109 U/L (38-126); Blood Urea Nitrogen 8 mg/dl (9-20); Calcium 8.8 mg/dl (8.4-10.2); Carbon Dioxide 30 mmol/L (22-30); Chloride 99 mmol/L (98-107); Estimated Creatinine Clearance > 125 ml/min; Glucose 151 mg/dl (70-99); Potassium 4.2 mmol/L (3.5-5.1); Sodium 134 mmol/L (135-145); Total Bilirubin 0.8 mg/dl (0.2-1.3); Total Protein 6.8 g/dl (6.3-8.2); eGFR > 60.00
--- NOTE | 2023-11-21 10:52 | W.PN.HOSP.TC ---
Addendum entered and electronically signed by Geraldo Joseph MD 11/21/23 11:02:
Mild hyponatremia
Monitor
Original Note:
Today's Communication/Plan
-
Monitor vital signs and see plan
Discharge today on p.o. antibiotics
Time of discharge 37 minutes
Assessment / Plan
Assessment / Plan
General: Conversant and Obese
HEENT: PERRLA
Respiratory: Clear; No Wheezes
Cardiac: S1/S2 and Regular Rhythm
GI: Soft and Non Tender
Musculoskeletal: Other (left thigh with area tenderness s/p I&D; suprapubic region with area significant tenderness + induration)
Skin: Warm and Dry
Neuro: AO x 3
Psych: calm
Hidradenitis Suppurativa
Recurrent abscesses
-patient has had multiple ER visits with I&D in past; most recently 11/08 s/p I&D growing Proteus.� He has been on Doxycyline with development new abscesses
-s/p I&D left thigh abscess in ER; no culture; per previous cx can do augmentin on dc
-warrants admission status with failure to improve on outpatient antibiotics
-dc abx and switch to augmentin
-US groin region without any fluid collection
-Toradol/oxy PRN pain with morphine for breakthrough
Unfortunately has no insurance so follow-ups are challenging
Hyperglycemia
Poorly Controlled DM II
Insulin Dependent Diabetes
-home regimen is metformin 1G BID; repaglinide 0.5mg AM; 1mg qPM; Lantus 35 units subQ BID
Continue with Lantus, repaglinide, metformin. Per patient he ran out of prescription for repaglinide
-diabetic diet
-DM TELECOMMUNICATION ENGINEER following
-ISS moderate
Essential Hypertension
-BANDER HAND lisinopril; HCTZopril
Hyperlipidemia
-BANDER HAND statin
DVT PPx lovenox subQ
FULL CODE
Anticipated Discharge: Today
Subjective/Interval History
-
Date of Service: November 21, 2023
Mild pain
Objective Data
-
Labs:
Laboratory Results
11/21/23
07:00
WBC 9.6
Hgb 15.7
Hct 46.9
Plt Count 200
Sodium 134 L
Potassium 4.2
Chloride 99
Carbon Dioxide 30
BUN 8 L
Creatinine 0.5 L
Glucose 151 H
Calcium 8.8
Total Bilirubin 0.8
AST 84 H
ALT 98 H
Alkaline Phosphatase 109
Vital Signs:
Vital Signs
Temp Pulse Resp BP Pulse Ox
97.5 F 98 20 159/98 94
11/21/23 07:30 11/21/23 08:20 11/21/23 07:30 11/21/23 08:20 11/21/23 08:25
I&O
11/20/23 11/21/23 11/22/23
06:59 06:59 06:59
Intake Total 840 / 840 2099
Balance 840 / 840 2099
--- NOTE | 2023-11-21 11:01 | W.DCSUMMARY ---
Discharge Summary
Discharge Data
Date of Admission: 11/18/23
Date of Discharge: 11/21/23
-
Pending Results: No
Hospital Course
42-year-old male with past medical history of hidradenitis suppurative, essential hypertension, leukemia, diabetes mellitus came to the hospital with recurrent abscess. Abscess was drained in the ED. Patient was admitted for antibiotics. No
culture was done in the ED. Per previous culture patient was initially started on IV antibiotic which were later transitioned to p.o. antibiotics on discharge. Ultrasound of the groin region was also done which did not show any fluid collection.
Patient diabetes was uncontrolled for which patient was seen by diabetic nurse practitioner and his medications were titrated. Due to patient lack of insurance patient was given application by case management for [facility]. Once
patient's symptoms were improving, he was then discharged home with instructions to follow-up with all his physicians outpatient.
Discharge Plan
-
Patient Disposition: Home (Routine Discharge)
Discharge Diagnosis/Procedures: Hidradenitis Suppurativa with recurrent abscess
Poorly controlled diabetes mellitus
Essential hypertension
Diet: Diabetic, Carb Controlled and No added salt
Activity: As tolerated
Driving Restrictions: As prior to admission
Bathing Restrictions: None
Referrals:
PRIVATE,PHYSICIAN [Family Provider] - in less than 1 week
Prescriptions:
New
miconazole nitrate [Miconazorb AF] 2 % Powder
1 applic topical BID Qty: 85 0RF
acetaminophen 325 mg Tablet
650 mg PO Q4HPRN PRN (Reason: mild pain/BURGESS/temp> 100.4F) Qty: 0 0RF
nicotine 21 mg/24 hr Patch 24 Hour
21 mg transdermal DAILY Qty: 30 0RF
repaglinide 1 mg Tablet
1 mg PO MEALS Qty: 90 0RF
amoxicillin-pot clavulanate 875-125 mg tablet
1 tab PO Q12H 7 Days Qty: 14 0RF
tramadol 25 mg tablet
25 mg PO Q6H PRN (Reason: Pain) Qty: 10 0RF
Continued
ibuprofen 400 mg Tablet
400 mg PO Q6HPRN PRN (Reason: mildpain)
metformin 1,000 MG tablet
1,000 mg PO BID@0800,1700 Qty: 60 0RF
lisinopril 20 MG tablet
40 mg PO DAILY Qty: 30 0RF
hydrochlorothiazide 12.5 mg Capsule
12.5 mg PO DAILY Qty: 30 0RF
Changed
insulin glargine [Basaglar KwikPen U-100 Insulin] 100 UNIT/ML insulin pen
27 unit SC BID Qty: 15 0RF
Discontinued
repaglinide 0.5 mg Tablet
0.5 mg PO DAILY
doxycycline monohydrate 100 mg Capsule
100 mg PO BID
Patient Comments:
patient orange picker on 11/08/23
repaglinide 1 mg Tablet
1 mg PO HS
Discharge Orders:
Discharge Patient (As Directed); Ordered 11/21/23
Ordered By: Geraldo Joseph
Discharge Date and Time
Discharge Date/Time: 11/21/23 12:04
--- NOTE | 2023-11-21 13:11 | CM ---
MD entered order for discharge.
Family drove him home.
Pt given application at [facility] to apply. He was thankful.
[facility] has seen him also.
PLAN Home no needs
== END 2023-11-21 12:04 | disposition home or self-care (01) | DRG 603 ==
LOC: 4 EAST ACU 14:33
PROVIDERS: Physician Assistant Medical; ADMITTING PHYSICIAN Student in an Organized Health Care Education/Training Program; ATTENDING PHYSICIAN Internal Medicine; EMERGENCY PHYSICIAN Student in an Organized Health Care Education/Training Program
PROC: 0J9C0ZZ Drainage of Pelvic Region Subcutaneous Tissue and Fascia, Open Approach (ICD-10-PCS; 2023-11-18)
DX: L02.411 Cutaneous abscess of right axilla (principal); E87.1 Hypo-osmolality and hyponatremia; L02.416 Cutaneous abscess of left lower limb; L03.311 Cellulitis of abdominal wall; E11.65 Type 2 diabetes mellitus with hyperglycemia; L73.2 Hidradenitis suppurativa; Z59.7 Insufficient social insurance and welfare support; I10 Essential (primary) hypertension; E78.00 Pure hypercholesterolemia, unspecified; F17.210 Nicotine dependence, cigarettes, uncomplicated
CPT/HCPCS: 10060; 76882; 80048; 80053; 82962; 83036; 83735; 85025; 87070; 96361; 96365; 96375; 96376; 99285; 99406

== ENCOUNTER 2023-12-08 05:25 | Emergency (ER) | payer OTHER, SELFPAY ==
[2023-12-08 05:36] VITALS: BP 156/93
[2023-12-08 06:43] VITALS: BMI 51.7
--- NOTE | 2023-12-08 07:21 | ED.GENMED ---
History of Present Illness
General
Chief Complaint: Musculo-Skeletal Complaint
Time Seen by Provider: 12/08/23 07:07
Travel History
Have you had any contact with someone who has COVID-19?: No
Do you have any symptoms of coronavirus? Fever > 100 degrees, chills, cough, shortness of breath, sore throat, loss of taste or smell, muscle aches, or headache?: No
History of Present Illness
History of Present Illness:
42 yo male w/ hx of IDDM and morbidy obesity presents to the Emergency Department for evaluation of acute on chronic bilateral knee pain, L>R. Currently without insurance. Had previously seen Orthopedics and was recommended to undergo surgery on
the L knee. Not currently on NSAID regimen. Increased pain felt to be due to increased ambulation/work recently. Also concerned for developing abscess to the R posterior neck. Hx of recurrent abscesses, recent hospitalization for sepsis/cutaneous
abscess.
Past History
Past History
ED Past Medical History: HTN, Hypercholesterolemia, IDDM, Psychiatric (Depression) and Other (Abscess, Pancreatitis)
ED Past Surgical History: Cholecystectomy, Orthopedic and Other (Previous abscess drainage)
Social History
Tobacco: Smoker
Alcohol: Occasional
Drug: None
Personal: Single
Living: with family
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
Family History
Family History: Diabetes; Negative CAD
Review of Systems
Review of Systems
Allergies reviewed?: Yes
All Other Systems: ROS reviewed and negative except as documented in HPI and ROS
Phy Exam
Physical Exam
Physical Exam:
GEN: Well appearing, NAD, WDWN
HEENT: Oral mucosa moist, no scleral icterus
Cardiac: Regular rate
Lung: No respiratory distress, no tachypnea
MSK: No gross deformity or injuries. Normal ROM bilateral knees, pain elicited throughout. Bilateral valgus defomity noted. No crepitus. No skin erythema or obvious joint effusions
Skin: Good color, no pallor or jaundice, no rashes. Small furuncle to R posterior neck, <1cm, no erythema or fluctuance
Neuro: AO x3, moves all extremities freely
Psych: Calm, cooperative
Course
Orders/Labs/Results
Orders:
Orders
12/08/23 07:24
Ketorolac [Toradol] 30 mg IM NOW STA
Tramadol HCl [Ultram] 50 mg PO NOW STA
Vital Signs
Initial and Last Documented VS:
Initial Vital Signs
Temp Pulse Resp BP Pulse Ox
99.2 F 89 24 156/93 97
12/08/23 05:36 12/08/23 05:36 12/08/23 05:36 12/08/23 05:36 12/08/23 05:36
Last Documented Vital Signs
Temp Pulse Resp BP Pulse Ox
99.2 F 89 24 156/93 97
12/08/23 05:36 12/08/23 05:36 12/08/23 05:36 12/08/23 05:36 12/08/23 05:36
MDM/Problems Addressed
MDM/Problems Addressed:
Acute on chronic knee pain likely due to arthritis in the setting of morbid obesity. No clinical signs of septic arthritis. Will start NSAIDs, needs Ortho f/u to determine manager long term care plan. Small furuncle to the neck is not amenable to I&D. Will
provide topical abx and PO abx Rx if symptoms worsen given he is high risk for complicated infections in the setting of DMII and obesity
*Critical Care Note
Total Time (30-74mins, 75-104mins- exclusive of procedures): Not Applicable
ED Attending Note
-
Portions of this chart may have been created with voice recognition software.� Occasional wrong word or��sound alike� substitutions may have occurred due to the inherent limitations of voice recognition software.
Discharge Plan
Departure
Patient Disposition: Home (Routine Discharge)
Date of Disposition: 12/08/23
Time of Disposition: 07:24
Patient with high blood pressure during this ER visit?: No
Discharge Problem:
Bilateral chronic knee pain, Furuncle of skin or subcutaneous tissue
Instructions: Osteoarthritis (DC)
Prescriptions:
New
meloxicam 15 mg tablet
15 mg PO DAILY Qty: 30 0RF
tramadol 50 mg tablet
50 - 100 mg PO HSPRN PRN (Reason: Pain) Qty: 6 0RF
mupirocin 2 % ointment
1 applic topical TID 7 Days Qty: 22 0RF
doxycycline hyclate 100 mg capsule
100 mg PO BID 7 Days Qty: 14 0RF
No Action
ibuprofen 400 mg Tablet
400 mg PO Q6HPRN PRN (Reason: mildpain)
acetaminophen 325 mg Tablet
650 mg PO Q4HPRN PRN (Reason: mild pain/BURGESS/temp> 100.4F) Qty: 0 0RF
repaglinide 1 mg Tablet
1 mg PO MEALS Qty: 90 0RF
metformin 1,000 MG tablet
1,000 mg PO BID@0800,1700 Qty: 60 0RF
insulin glargine [Basaglar KwikPen U-100 Insulin] 100 UNIT/ML insulin pen
27 unit SC BID Qty: 15 0RF
lisinopril 20 MG tablet
40 mg PO DAILY Qty: 30 0RF
hydrochlorothiazide 12.5 mg Capsule
12.5 mg PO DAILY Qty: 30 0RF
Referrals:
Antelmo Mayer MD [Active] -
Activity Restrictions/Additional Instructions:
Do not begin the doxycycline. If the small abscess on your neck does not get better in 3-5 days, or if it gets larger while using the ointment, please start the doxycycline
Follow up with Orthopedics regarding your chronic knee pain
Interventions
Interventions:
*Risk Screen - Suicide Last Done: 12/08/23 05:36
*General Assessment Last Done: 12/08/23 05:36
*Neglect/Abuse Screening Last Done: 12/08/23 05:36
ED- Fall Risk Assessment Last Done: 12/08/23 05:36
*ED COVID-19 Vaccine History Last Done: 12/08/23 05:36
ED-Musculoskeletal Assessment Last Done: 12/08/23 06:44
ED-Skin Assessment Last Done: 12/08/23 06:46
[2023-12-08] MEDS: TORADOL 30 MG IM (07:35)
[2023-12-08] MEDS: ULTRAM 50 MG PO (07:40)
== END 2023-12-08 08:09 | disposition home or self-care (01) ==
LOC: EMR 05:25
PROVIDERS: EMERGENCY PHYSICIAN Emergency Medicine; FAMILY PHYSICIAN Student in an Organized Health Care Education/Training Program
DX: M25.562 Pain in left knee (principal); M25.561 Pain in right knee; L02.92 Furuncle, unspecified; G89.29 Other chronic pain; F17.200 Nicotine dependence, unspecified, uncomplicated
CPT/HCPCS: 99284; 96372

== ENCOUNTER 2023-12-13 09:10 | Emergency (ER) | payer OTHER, SELFPAY ==
[2023-12-13 09:12] VITALS: BP 182/102
[2023-12-13 11:25] VITALS: BP 145/71; BMI 56.2
--- NOTE | 2023-12-13 11:33 | ED.GENMED ---
History of Present Illness
General
Chief Complaint: Musculo-Skeletal Complaint
Source: patient
Time Seen by Provider: 12/13/23 10:46
Travel History
Have you had any contact with someone who has COVID-19?: No
Do you have any symptoms of coronavirus? Fever > 100 degrees, chills, cough, shortness of breath, sore throat, loss of taste or smell, muscle aches, or headache?: No
History of Present Illness
History of Present Illness:
42-year-old male with past medical history of hypertension, hyperlipidemia and diabetes presenting to the emergency department for evaluation of left knee pain that he states is secondary to a torn LCL that was diagnosed about 3 years ago but he has
been unable to follow-up steadily with his primary care physician nor orthopedist due to a lack of insurance. 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
exacerbated. He was here last week for similar and was treated with meloxicam and tramadol with some relief but pain persists. He denies any fevers, chills, rigors, rashes, erythema. Pain worsens with range of motion and with ambulation. No
other concerns at this time.
Past History
Past History
ED Past Medical History: HTN, Hypercholesterolemia, IDDM, Psychiatric (Depression) and Other (Abscess, Pancreatitis)
ED Past Surgical History: Cholecystectomy, Orthopedic and Other (Previous abscess drainage)
Social History
Tobacco: Smoker
Alcohol: Occasional
Drug: None
Personal: Single
Living: with family
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
Family History
Family History: Diabetes; Negative CAD
Review of Systems
Review of Systems
All Other Systems: ROS reviewed and negative except as documented in HPI and ROS
Phy Exam
Physical Exam
Physical Exam:
GENERAL: Alert , in no apparent distress
EYE: conjunctiva clear
Head: Normocephalic atraumatic
NECK: Supple,
ENT: mmm.
LUNGS: no acute respiratory distress
NEUROLOGICAL: Alert and oriented
SKIN: Warm and dry, skin intact.
MUSCULOSKELETAL: Left knee mild soft tissue swelling diffusely but worse in the left lower medial patella and superolateral patella. Range of motion is limited secondary to pain. No overlying erythema or warmth. Extremity is otherwise
neurovascularly intact
PSYCH: Normal and appropriate interaction.
Scores
Heart Failure Risk
Heart Failure Risk Score: Not Applicable
Heart Score for Chest Pain Patients
STEMI patient?: Not applicable
Withdrawal Assessment of Alcohol
Withdrawal Assessment Completed?: Not applicable
Course
Orders/Labs/Results
Orders:
Orders
12/13/23 11:32
Ibuprofen [Motrin] 600 mg PO NOW STA
Oxycodone/Acetaminophen [Percocet 5/325] 1 tablet PO NOW STA
12/13/23 11:37
Rocky Wrap Left-Treatment ONCE
Vital Signs
Initial and Last Documented VS:
Initial Vital Signs
Temp Pulse Resp BP Pulse Ox
98.2 F 85 18 182/102 98
12/13/23 09:12 12/13/23 09:12 12/13/23 09:12 12/13/23 09:12 12/13/23 09:12
Last Documented Vital Signs
Temp Pulse Resp BP Pulse Ox
97.6 F 86 16 145/71 99
12/13/23 11:25 12/13/23 11:25 12/13/23 11:25 12/13/23 11:25 12/13/23 11:25
Procedures
Incision/Drainage/Joint Aspiration
Left Knee:
Anethesia: 1% Lidocaine
Preparation: cleaned with Betadine
Type of procedure: aspiration
Nature of site: other (Joint fluid)
How much fluid was obtained?: none
Fluid description: bloody
Additional information:
1 cc of blood removed
MDM/Problems Addressed
Differential Diagnosis Includes:
Arthritis, chronic degenerative changes, Lyme's given occupation, meniscal injury, ligamentous injury, I do not have concern for septic arthritis
MDM/Problems Addressed:
42-year-old male presenting emergency department for evaluation of atraumatic left knee pain but has a known ligamentous injury that likely needs repair or physical therapy to help strengthen. Patient has been having a hard time doing this due to
loss of insurance. Patient had been consented for knee arthrocentesis unfortunately did not yield any significant fluid. I entered the joint space at the inferomedial portion of the knee without any success. Given the patient had tenderness
within the superolateral portion I offered to try and aspirate this area however patient declines. I did provide the patient with information for the family clinic where he can hopefully be seen and followed up with. Patient is otherwise stable
for discharge home. Will prescribe Percocet and continue with NSAIDs. [place] was [place] and he has gotten some small term prescriptions for pain medications recently but no prescriptive abnormalities.
*Pulse Oximetry
Patient hypoxic: no
*Critical Care Note
Total Time (30-74mins, 75-104mins- exclusive of procedures): Not Applicable
Data Reviewed
Review of Other/Old Records Reveals: Records
ED Attending Note
-
Portions of this chart may have been created with voice recognition software.� Occasional wrong word or��sound alike� substitutions may have occurred due to the inherent limitations of voice recognition software.
Discharge Plan
Departure
Patient Disposition: Home (Routine Discharge)
Date of Disposition: 12/13/23
Time of Disposition: 11:33
Patient with high blood pressure during this ER visit?: Yes
Discharge Problem:
Knee pain, left
Instructions: Knee Pain (DC)
Prescriptions:
New
oxycodone-acetaminophen [Percocet] 5-325 mg Tablet
1 tab PO Q6HPRN PRN (Reason: pain) Qty: 6 0RF
No Action
ibuprofen 400 mg Tablet
400 mg PO Q6HPRN PRN (Reason: mildpain)
acetaminophen 325 mg Tablet
650 mg PO Q4HPRN PRN (Reason: mild pain/BURGESS/temp> 100.4F) Qty: 0 0RF
repaglinide 1 mg Tablet
1 mg PO MEALS Qty: 90 0RF
metformin 1,000 MG tablet
1,000 mg PO BID@0800,1700 Qty: 60 0RF
insulin glargine [Basaglar KwikPen U-100 Insulin] 100 UNIT/ML insulin pen
27 unit SC BID Qty: 15 0RF
lisinopril 20 MG tablet
40 mg PO DAILY Qty: 30 0RF
hydrochlorothiazide 12.5 mg Capsule
12.5 mg PO DAILY Qty: 30 0RF
meloxicam 15 mg tablet
15 mg PO DAILY Qty: 30 0RF
mupirocin 2 % ointment
1 applic topical TID 7 Days Qty: 22 0RF
doxycycline hyclate 100 mg capsule
100 mg PO BID 7 Days Qty: 14 0RF
Referrals:
[facility] [Outside] (Call for appointment [facility])
Kadi Bland MD [Family Provider] -
Interventions
Interventions:
*Risk Screen - Suicide Last Done: 12/13/23 09:12
*General Assessment Last Done: 12/13/23 09:12
*Neglect/Abuse Screening Last Done: 12/13/23 09:12
ED- Fall Risk Assessment Last Done: 12/13/23 11:25
*ED COVID-19 Vaccine History Last Done: 12/13/23 09:12
ED-Musculoskeletal Assessment Last Done: 12/13/23 11:25
[2023-12-13] MEDS: MOTRIN 600 MG PO (11:36)
[2023-12-13] MEDS: PERCOCET 5/325 1 TABLET PO (11:37)
== END 2023-12-13 11:47 | disposition home or self-care (01) ==
LOC: EMR 09:10
PROVIDERS: EMERGENCY PHYSICIAN Emergency Medicine; FAMILY PHYSICIAN Student in an Organized Health Care Education/Training Program
DX: M25.562 Pain in left knee (principal); F17.200 Nicotine dependence, unspecified, uncomplicated; I10 Essential (primary) hypertension; E78.00 Pure hypercholesterolemia, unspecified; E11.9 Type 2 diabetes mellitus without complications
CPT/HCPCS: 99284; 20610

== ENCOUNTER 2023-12-19 08:03 | Emergency (ER) | payer OTHER, SELFPAY ==
[2023-12-19 08:08] VITALS: BP 154/109
[2023-12-19 09:30] VITALS: BP 148/96
[2023-12-19] MEDS: PERCOCET 5/325 1 TABLET PO (09:36)
[2023-12-19] MEDS: DUONEB 3 ML INH (09:37)
[2023-12-19] MEDS: MOTRIN 400 MG PO (09:37)
[2023-12-19] MEDS: DELTASONE 50 MG PO (09:37)
[2023-12-19] MEDS: ROBITUSSIN AC 10 ML PO (09:51)
--- NOTE | 2023-12-19 10:19 | ED.GENMED ---
History of Present Illness
General
Chief Complaint: Cough
Source: patient
Exam Limitations: none
Time Seen by Provider: 12/19/23 08:53
Nursing documentation reviewed up to this point in time: agreed with
Travel History
Have you had any contact with someone who has COVID-19?: No
Do you have any symptoms of coronavirus? Fever > 100 degrees, chills, cough, shortness of breath, sore throat, loss of taste or smell, muscle aches, or headache?: No
History of Present Illness
History of Present Illness:
Patient presents to ED secondary to persistent cough with shortness of breath over the past 5 days. Denies fever or chills. Denies nausea, vomiting, or diarrhea. Denies loss of appetite. Denies headache. Denies dizziness. Denies back pain.
Denies leg pain or swelling. Denies recent travel or surgery. Denies sick contact. Patient also is complaining of chronic bilateral knee pain, which is in need of surgery secondary to ligamentous injury. Patient is waiting for his insurance to
be approved.
Past History
Past History
ED Past Medical History: HTN, Hypercholesterolemia, IDDM, Psychiatric (Depression) and Other (Abscess, Pancreatitis)
ED Past Surgical History: Cholecystectomy, Orthopedic and Other (Previous abscess drainage)
Social History
Tobacco: Smoker
Alcohol: Occasional
Drug: None
Personal: Single
Living: with family
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
Family History
Family History: Diabetes; Negative CAD
Review of Systems
Review of Systems
Allergies reviewed?: Yes
All Other Systems: ROS reviewed and negative except as documented in HPI and ROS
Constitutional: Reports no symptoms
Respiratory: Reports cough and trouble breathing
Cardiac: Reports no symptoms
ABD/GI: Reports no symptoms
Musculoskeletal: Reports joint pain (Bilateral knee pain)
Skin: Reports no symptoms
Neurological: Reports no symptoms
Phy Exam
Physical Exam
Physical Exam:
Physical Exam
General: mild painful distress, not acutely ill. afebrile. obese
Head: nc/at. eomi
Neck: supple. no meningeal signs.
Heart: s1/s2 regular rate and rhythm, no murmur. equal radial pulses.
Lungs: no acute respiratory distress. diminished breath sounds bilaterally
Abdomen: normal bowel sounds. not tender.
Neuro: alert and oriented. no focal neurological deficits
Skin: no rash
Psychiatric: well kept. interactive and cooperative
Extremities: no edema. no calf tenderness. b/l diffuse knee tenderness, without swelling/erythema/ecchymosis.
Course
Orders/Labs/Results
Orders:
Orders
12/19/23 08:59
Ibuprofen [Motrin] 400 mg PO NOW STA
Ipratropium/Albuterol Sulfate [Duoneb] 3 ml INH R NOW STA
Oxycodone/Acetaminophen [Percocet 5/325] 1 tablet PO NOW STA
Prednisone [Deltasone] 50 mg PO NOW STA
CR Chest - 2 Views Urgent
Comment:
Reason For Exam: cough/sob
12/19/23 09:22
Guaifenesin/Codeine Solution [Robitussin AC] 10 ml PO NOW STA
Vital Signs
Initial and Last Documented VS:
Initial Vital Signs
Temp Pulse Resp BP Pulse Ox
97.6 F 85 16 154/109 98
12/19/23 08:08 12/19/23 08:08 12/19/23 08:08 12/19/23 08:08 12/19/23 08:08
Last Documented Vital Signs
Temp Pulse Resp BP Pulse Ox
97.6 F 91 20 149/85 98
12/19/23 08:08 12/19/23 11:00 12/19/23 11:00 12/19/23 11:00 12/19/23 11:00
MDM/Problems Addressed
MDM/Problems Addressed:
CXR: NAD.
History/exam consistent with likely acute bronchitis. Will treat symptomatically with z-magdy/antitussive medication/inhaler, along with short course of percocet for ongoing knee pain. Pt otherwise is afebrile, hemodynamically stable, and without any
acute respiratory distress, at time of discharge to the care of his family.
*Radiology
Radiology exam reviewed: radiology read reviewed
*Critical Care Note
Total Time (30-74mins, 75-104mins- exclusive of procedures): Not Applicable
ED Attending Note
-
Portions of this chart may have been created with voice recognition software.� Occasional wrong word or��sound alike� substitutions may have occurred due to the inherent limitations of voice recognition software.
Discharge Plan
Departure
Patient Disposition: Home (Routine Discharge)
Date of Disposition: 12/19/23
Time of Disposition: 11:00
Patient with high blood pressure during this ER visit?: Yes
Condition: Good
Discharge Problem:
Acute bronchitis
Instructions: Acute Bronchitis, Adult (DC)
Prescriptions:
New
albuterol sulfate [ProAir HFA] 90 mcg/actuation Hfa Aerosol Inhaler
2 puff INHALATION Q4HPRN PRN (Reason: shortness of breath) Qty: 8.5 0RF
oxycodone-acetaminophen [Percocet] 5-325 mg Tablet
1 tab PO Q6HPRN PRN (Reason: pain) Qty: 12 0RF
prednisone 50 mg Tablet
50 mg PO DAILY Qty: 3 0RF
azithromycin [Zithromax Z-Magdy] 250 mg tablet
250 mg PO DAILY 6 Days Qty: 6 0RF
benzonatate 100 mg capsule
100 mg PO TID PRN (Reason: Cough) Qty: 14 0RF
No Action
ibuprofen 400 mg Tablet
400 mg PO Q6HPRN PRN (Reason: mildpain)
acetaminophen 325 mg Tablet
650 mg PO Q4HPRN PRN (Reason: mild pain/BURGESS/temp> 100.4F) Qty: 0 0RF
repaglinide 1 mg Tablet
1 mg PO MEALS Qty: 90 0RF
metformin 1,000 MG tablet
1,000 mg PO BID@0800,1700 Qty: 60 0RF
insulin glargine [Basaglar KwikPen U-100 Insulin] 100 UNIT/ML insulin pen
27 unit SC BID Qty: 15 0RF
lisinopril 20 MG tablet
40 mg PO DAILY Qty: 30 0RF
hydrochlorothiazide 12.5 mg Capsule
12.5 mg PO DAILY Qty: 30 0RF
meloxicam 15 mg tablet
15 mg PO DAILY Qty: 30 0RF
mupirocin 2 % ointment
1 applic topical TID 7 Days Qty: 22 0RF
doxycycline hyclate 100 mg capsule
100 mg PO BID 7 Days Qty: 14 0RF
oxycodone-acetaminophen [Percocet] 5-325 mg Tablet
1 tab PO Q6HPRN PRN (Reason: pain) Qty: 6 0RF
Referrals:
UNKNOWN - PT DOES,NOT KNOW [Family Provider] -
Activity Restrictions/Additional Instructions:
As discussed, please follow-up with your primary care physician and/or orthopedic surgeon for further evaluation and treatment. Your prescriptions have been sent electronically to [facility] in [place].
Interventions
Interventions:
*Risk Screen - Suicide Last Done: 12/19/23 11:21
*General Assessment Last Done: 12/19/23 11:21
*Neglect/Abuse Screening Last Done: 12/19/23 11:21
*ED COVID-19 Vaccine History Last Done: 12/19/23 08:08
*Nursing Disposition Last Done: 12/19/23 11:24
ED- Pulmonary Assessment Last Done: 12/19/23 11:21
Discharge Date and Time
Discharge Date/Time: 12/19/23 11:25
Print Language: BULGARIAN
[2023-12-19 11:00] VITALS: BP 149/85
== END 2023-12-19 11:25 | disposition home or self-care (01) ==
LOC: EMR 08:03
PROVIDERS: EMERGENCY PHYSICIAN Emergency Medicine
DX: J20.9 Acute bronchitis, unspecified (principal); M25.562 Pain in left knee; M25.561 Pain in right knee; I10 Essential (primary) hypertension; F17.200 Nicotine dependence, unspecified, uncomplicated
CPT/HCPCS: 99283; 94640; 71046

== ENCOUNTER 2023-12-24 09:21 | Emergency (ER) | payer OTHER, SELFPAY ==
[2023-12-24 09:28] VITALS: BP 180/100
[2023-12-24 09:53] LABS: % Basophils 0.3 % (0-2); % Eosinophils 1.5 % (0-6); % Immature Granulocytes 0.7 % (0-0.5); % Lymphocytes 23.8 % (20.5-51.1); % Monocytes 4.9 % (1.7-9.3); % Neutrophils 68.8 % (42.2-75.2); Absolute Eosinophils 0.2 10^3/uL (0-0.7); Absolute Immature Granulocytes 0.1 10^3/uL (0-0.05); Absolute Lymphocytes 2.8 10^3/uL (1.2-3.4); Absolute Monocytes 0.6 10^3/uL (0.1-0.6); Absolute Neutrophils 8.1 10^3/uL (1.4-6.5); Hematocrit 46.1 % (39.0-52.0); Hemoglobin 15.4 g/dL (13.0-18.0); Mean Corp Hgb Conc. 33.4 g/dL (33.0-37.0); Mean Corpuscular Hgb 29.5 pg (27.0-31.0); Mean Corpuscular Volume 88.3 fL (80.0-94.0); Mean Platelet Volume 10.7 fL (7.4-10.4); Nucleated Red Blood Cells % 0 % (-); Platelet Count 235 10^3/uL (130-400); Red Blood Cell Count 5.22 10^6/uL (4.70-6.10); Red Cell Dist. Width 13.5 % (11.5-14.5); White Blood Cell Count 11.7 10^3/uL (4.8-10.8)
[2023-12-24 09:56] LABS: ALT (SGPT) 84 U/L (0-50); AST (SGOT) 70 U/L (17-59); Alkaline Phosphatase 161 U/L (38-126); Blood Urea Nitrogen 13 mg/dl (9-20); Calcium 9.1 mg/dl (8.4-10.2); Carbon Dioxide 27 mmol/L (22-30); Chloride 100 mmol/L (98-107); Glucose 289 mg/dl (70-99); Potassium 4.3 mmol/L (3.5-5.1); Sodium 133 mmol/L (135-145); Total Bilirubin 0.8 mg/dl (0.2-1.3); Total Protein 7.5 g/dl (6.3-8.2); eGFR > 60.00
--- NOTE | 2023-12-24 11:17 | ED.GENMED ---
History of Present Illness
<Teresa Boyce PA-C - Last Filed: 12/24/23 12:59>
General
Chief Complaint: Skin Problem
Source: patient
Exam Limitations: none
Time Seen by Provider: 12/24/23 11:16
Nursing documentation reviewed up to this point in time: agreed with
Travel History
Have you had any contact with someone who has COVID-19?: No
Do you have any symptoms of coronavirus? Fever > 100 degrees, chills, cough, shortness of breath, sore throat, loss of taste or smell, muscle aches, or headache?: No
History of Present Illness
History of Present Illness:
43-year-old male with a past medical history of hypertension, diabetes, hyperlipidemia, hidradenitis suppurativa who presents to the emergency department today with concerns of a abscess behind his neck and lower abdominal area. Patient states that
the abscess on his next started around 2 days ago. Patient states that it is so painful that he cannot sleep. Patient states that the abscesses around his groin started 3 days ago. Patient states that he has no insurance and he is often not able
to refill his medications and he states that his conditions become out of control. Patient states that he frequently presents emergency department for these recurrent abscesses. Patient denies any fevers or chills, trauma to the neck or groin
area. Patient follows with the [facility].
Past History
<Teresa Boyce PA-C - Last Filed: 12/24/23 12:59>
Past History
ED Past Medical History: HTN, Hypercholesterolemia, IDDM, Psychiatric (Depression) and Other (Abscess, Pancreatitis)
ED Past Surgical History: Cholecystectomy, Orthopedic and Other (Previous abscess drainage)
Social History
Tobacco: Smoker
Alcohol: Occasional
Drug: None
Personal: Single
Living: with family
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
Family History
Family History: Diabetes; Negative CAD
Review of Systems
<Teresa Boyce PA-C - Last Filed: 12/24/23 12:59>
Review of Systems
All Other Systems: ROS reviewed and negative except as documented in HPI and ROS
Phy Exam
<Teresa Boyce PA-C - Last Filed: 12/24/23 12:59>
Physical Exam
Physical Exam:
General: Patient is well appearing, no acute distress, nontoxic appearing
Skin: Cutaneous pustule with surrounding erythema on the posterior midline neck
Cardiac: Regular rate and rhythm, no murmurs
Pulm: Normal respiratory effort, no wheezes, rales, or rhonchi
Abdomen: No tenderness to palpation
Genitourinary: 2 cm area of fluctuance on right pubic mount with surrounding erythema
Musculoskeletal: Patient seen moving all extremities. Good muscle tone and bulk.
Neuro: CN II-XII intact. AAOx3. No focal neurologic deficits.
Course
<Teresa Boyce PA-C - Last Filed: 12/24/23 12:59>
Orders/Labs/Results
Orders:
Orders
12/24/23 09:34
Complete Blood Count/With Diff Urgent
Comprehensive Metabolic Panel Urgent
12/24/23 12:19
Oxycodone/Acetaminophen [Percocet 5/325] 1 tablet PO NOW STA
Abnormal Lab Results
12/24/23
09:34
WBC 11.7 H 10^3/uL
(4.8-10.8)
MPV 10.7 H fL
(7.4-10.4)
Abs Immat Gran (auto) 0.1 H 10^3/uL
(0-0.05)
Absolute Neuts (auto) 8.1 H 10^3/uL
(1.4-6.5)
Immature Gran % 0.7 H %
(0-0.5)
Sodium 133 L mmol/L
(135-145)
Creatinine 0.4 L mg/dL
(0.7-1.3)
Glucose 289 H mg/dl
(70-99)
AST 70 H U/L
(17-59)
ALT 84 H U/L
(0-50)
Alkaline Phosphatase 161 H U/L
(38-126)
12/24/23 09:34
12/24/23 09:34
Vital Signs
Initial and Last Documented VS:
Initial Vital Signs
Temp Pulse Resp BP Pulse Ox
98.0 F 103 16 180/100 98
12/24/23 09:28 12/24/23 09:28 12/24/23 09:28 12/24/23 09:28 12/24/23 09:28
Last Documented Vital Signs
Temp Pulse Resp BP Pulse Ox
98.0 F 103 16 180/100 98
12/24/23 09:28 12/24/23 09:28 12/24/23 09:28 12/24/23 09:28 12/24/23 09:28
Stephenielt;Javon Pink, DO - Last Filed: 12/24/23 12:20>
Orders/Labs/Results
Orders:
Orders
12/24/23 09:34
Complete Blood Count/With Diff Urgent
Comprehensive Metabolic Panel Urgent
12/24/23 12:19
Oxycodone/Acetaminophen [Percocet 5/325] 1 tablet PO NOW STA
Abnormal Lab Results
12/24/23
09:34
WBC 11.7 H 10^3/uL
(4.8-10.8)
MPV 10.7 H fL
(7.4-10.4)
Abs Immat Gran (auto) 0.1 H 10^3/uL
(0-0.05)
Absolute Neuts (auto) 8.1 H 10^3/uL
(1.4-6.5)
Immature Gran % 0.7 H %
(0-0.5)
Sodium 133 L mmol/L
(135-145)
Creatinine 0.4 L mg/dL
(0.7-1.3)
Glucose 289 H mg/dl
(70-99)
AST 70 H U/L
(17-59)
ALT 84 H U/L
(0-50)
Alkaline Phosphatase 161 H U/L
(38-126)
12/24/23 09:34
12/24/23 09:34
Vital Signs
Initial and Last Documented VS:
Initial Vital Signs
Temp Pulse Resp BP Pulse Ox
98.0 F 103 16 180/100 98
12/24/23 09:28 12/24/23 09:28 12/24/23 09:28 12/24/23 09:28 12/24/23 09:28
Last Documented Vital Signs
Temp Pulse Resp BP Pulse Ox
98.0 F 103 16 180/100 98
12/24/23 09:28 12/24/23 09:28 12/24/23 09:28 12/24/23 09:28 12/24/23 09:28
Procedures
Stephenielt;Teresa Boyce PA-C - Last Filed: 12/24/23 12:59>
Incision/Drainage/Joint Aspiration
Middle Posterior Neck:
Anethesia: 1% Lidocaine with Epi
Preparation: cleaned with Betadine
Type of procedure: incise and drain
Nature of site: abscess
Description of abscess: less than 3cm
Loculations broken up: No
How much fluid was obtained?: large amount
Fluid description: purulent and blood tinged
Treatment: left open for drainage
Right Groin:
Anethesia: 1% Lidocaine with Epi
Preparation: cleaned with alcohol wipe
Type of procedure: incise and drain
Nature of site: abscess
Description of abscess: less than 3cm
Loculations broken up: No
How much fluid was obtained?: scant amount
Fluid description: purulent and blood tinged
Treatment: left open for drainage
<CRISSY Mcgrath Last Filed: 12/24/23 12:59>
MDM/Problems Addressed
Differential Diagnosis Includes:
ddx include spectrum of HS, simple cutaneous abscess, cellulitis, erysipelas
MDM/Problems Addressed:
abscess
HS
Chronic conditions affecting care: DM, HTN and Other (Hidradenitis suppurativa)
Acute Exacerbation and/or Progression of Chronic Illness: DM, HTN and Other (hirdradenitis suppurativa)
<CRISSY Mcgrath Last Filed: 12/24/23 12:59>
*Pulse Oximetry
Patient hypoxic: no
*Critical Care Note
Total Time (30-74mins, 75-104mins- exclusive of procedures): Not Applicable
Data Reviewed
Review of Other/Old Records Reveals: Records (Reviewed previous records from ER physician documentation on 12/19/2023, reviewed ER physician documentation from 12/13/2023, reviewed ER physician documentation from 12/08/2023) and Discharge Summary
(Reviewed hospital discharge summary from 11/21/2023)
Source: patient and records
Prescriptions/Medications Considered But Not Given:
Considered prescribing pain medication, patient requesting pain medication for the coming days. Considering how patient has recurrent abscesses and chronic head retinitis suppurativa, explained how opioids are not prescribed for chronic conditions.
<CRISSY Mcgrath Last Filed: 12/24/23 12:59>
Patient Management
Escalation/DeEscalation of care consider admission/obs:
43-year-old male with a past medical history of hypertension, diabetes, hyperlipidemia, hidradenitis suppurativa who presents to the emergency department today with concerns of a abscess behind his neck and lower abdominal area. Patient has
recurrent abscesses due to uncontrolled HS and uncontrolled diabetes. Patient has multiple visits here in the emergency department for recurrent skin abscesses drainage. On exam, he has a cutaneous abscess on the posterior neck. He also has a red
area of fluctuance on the upper right pubic mound. These two sites were drained to help with patient's pain relief and infection control. Patient was started on a course of Bactrim to cover for MRSA. Discussed return precautions with patient.
ED Attending Note
<Teresa Boyce PA-C - Last Filed: 12/24/23 12:59>
-
Portions of this chart may have been created with voice recognition software.� Occasional wrong word or��sound alike� substitutions may have occurred due to the inherent limitations of voice recognition software.
<Javon Pink DO - Last Filed: 12/24/23 12:20>
ED Attending Note
Patient seen and examined by attending physician: Yes
I performed the substantive portion of visit, reviewed & personally made and approve the management plan that is documented in note by myself or JEREMÍAS.: Yes
ED Attending Note:
I agree with Teresa's note.
Patient presents complaining of pain posterior neck as well as in his inguinal region bilaterally. Patient has history of multiple abscesses. No fever or chills.
General: Awake, Alert, Oriented X3. No acute distress.
Vitals: unremarkable
Head: Atraumatic
Neck: Trachea midline
Neuro: Nonfocal
Skin: Warm, dry, no rash. Area of induration and tenderness noted posterior neck with area of pointing. Suspect abscess. Small fields wilson sized area of induration bilateral groins. Question cellulitis versus abscess
Extremities: pulses equal b/l, no edema
Plan is I&D, antibiotics
Discharge Plan
Departure
Patient Disposition: Home (Routine Discharge)
Date of Disposition: 12/24/23
Time of Disposition: 12:20
Patient with high blood pressure during this ER visit?: Yes
Condition: Good
Discharge Problem:
Hidradenitis suppurativa, Cutaneous abscess of neck
Instructions: Wound Care (DC), BLOOD PRESSURE, Skin Abscess
Prescriptions:
New
sulfamethoxazole-trimethoprim [Bactrim DS] 800-160 mg tablet
1 tab PO BID 7 Days Qty: 14 0RF
No Action
ibuprofen 400 mg Tablet
400 mg PO Q6HPRN PRN (Reason: mildpain)
acetaminophen 325 mg Tablet
650 mg PO Q4HPRN PRN (Reason: mild pain/BURGESS/temp> 100.4F) Qty: 0 0RF
repaglinide 1 mg Tablet
1 mg PO MEALS Qty: 90 0RF
metformin 1,000 MG tablet
1,000 mg PO BID@0800,1700 Qty: 60 0RF
insulin glargine [Basaglar KwikPen U-100 Insulin] 100 UNIT/ML insulin pen
27 unit SC BID Qty: 15 0RF
lisinopril 20 MG tablet
40 mg PO DAILY Qty: 30 0RF
hydrochlorothiazide 12.5 mg Capsule
12.5 mg PO DAILY Qty: 30 0RF
meloxicam 15 mg tablet
15 mg PO DAILY Qty: 30 0RF
mupirocin 2 % ointment
1 applic topical TID 7 Days Qty: 22 0RF
doxycycline hyclate 100 mg capsule
100 mg PO BID 7 Days Qty: 14 0RF
oxycodone-acetaminophen [Percocet] 5-325 mg Tablet
1 tab PO Q6HPRN PRN (Reason: pain) Qty: 6 0RF
albuterol sulfate [ProAir HFA] 90 mcg/actuation Hfa Aerosol Inhaler
2 puff INHALATION Q4HPRN PRN (Reason: shortness of breath) Qty: 8.5 0RF
oxycodone-acetaminophen [Percocet] 5-325 mg Tablet
1 tab PO Q6HPRN PRN (Reason: pain) Qty: 12 0RF
prednisone 50 mg Tablet
50 mg PO DAILY Qty: 3 0RF
azithromycin [Zithromax Z-Magdy] 250 mg tablet
250 mg PO DAILY 6 Days Qty: 6 0RF
benzonatate 100 mg capsule
100 mg PO TID PRN (Reason: Cough) Qty: 14 0RF
Referrals:
Kadi Bland MD [Family Provider] -
Activity Restrictions/Additional Instructions:
We have sent a medication called Bactrim to your pharmacy. Please take 1 tablet twice daily for 7 days.
Please keep the wound dry for 24 hours. After 24 hours, you may wash the area with warm soap and water. The site will continue to drain in the coming days. For the incision in your groin area, I recommend bathing in warm water daily in the coming
days or use a sitz bath one daily.
Please follow up with the [facility].
Please return emergency department should you experience fevers or chills, trauma to the area, spreading or tracking of your wounds, or other concerning signs or symptoms.
Interventions
Interventions:
*Risk Screen - Suicide Last Done: 12/24/23 12:05
*General Assessment Last Done: 12/24/23 12:05
*Neglect/Abuse Screening Last Done: 12/24/23 12:05
ED- Fall Risk Assessment Last Done: 12/24/23 12:56
*ED COVID-19 Vaccine History Last Done: 12/24/23 09:28
*Nursing Disposition Last Done: 12/24/23 12:56
ED-Skin Assessment Last Done: 12/24/23 12:05
Discharge Date and Time
Print Language: CHINESE
[2023-12-24] MEDS: PERCOCET 5/325 1 TABLET PO (12:47)
== END 2023-12-24 12:58 | disposition home or self-care (01) ==
LOC: EMR 09:21
PROVIDERS: Emergency Medicine; EMERGENCY PHYSICIAN Emergency Medicine; FAMILY PHYSICIAN Student in an Organized Health Care Education/Training Program
DX: L73.2 Hidradenitis suppurativa (principal); L02.11 Cutaneous abscess of neck; I10 Essential (primary) hypertension; E11.9 Type 2 diabetes mellitus without complications; E78.00 Pure hypercholesterolemia, unspecified; F17.200 Nicotine dependence, unspecified, uncomplicated
CPT/HCPCS: 99283; 10060; 80053; 85025

== ENCOUNTER 2024-01-01 12:59 | Emergency (ER) | payer OTHER, SELFPAY ==
[2024-01-01 13:23] VITALS: BP 163/117
[2024-01-01 14:14] VITALS: BMI 51.1
[2024-01-01 14:28] VITALS: BP 134/97
--- NOTE | 2024-01-01 15:12 | ED.GENMED ---
History of Present Illness
General
Chief Complaint: Musculo-Skeletal Complaint
Time Seen by Provider: 01/01/24 15:05
Travel History
Have you had any contact with someone who has COVID-19?: No
Do you have any symptoms of coronavirus? Fever > 100 degrees, chills, cough, shortness of breath, sore throat, loss of taste or smell, muscle aches, or headache?: No
History of Present Illness
History of Present Illness:
. 43-year-old male with history of hyperlipidemia, hypertension, insulin-dependent diabetes, and morbid obesity presents for chronic bilateral knee pain. Patient is well-known to this emergency department for similar complaints. States last time
he had a knee injection was greater than 4 months ago. He states that he does have insurance but was unable to schedule with his primary care doctor or orthopedist. He is requesting injections today
Past History
Past History
ED Past Medical History: HTN, Hypercholesterolemia, IDDM, Psychiatric (Depression) and Other (Abscess, Pancreatitis)
ED Past Surgical History: Cholecystectomy, Orthopedic and Other (Previous abscess drainage)
Social History
Tobacco: Smoker
Alcohol: Occasional
Drug: None
Personal: Single
Living: with family
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
Family History
Family History: Diabetes; Negative CAD
Review of Systems
Review of Systems
Allergies reviewed?: Yes
All Other Systems: ROS reviewed and negative except as documented in HPI and ROS
Phy Exam
Physical Exam
Physical Exam:
GEN: Well appearing, NAD, WDWN
HEENT: Oral mucosa moist, no scleral icterus
Cardiac: Mildly tachycardic, regular
Lung: No respiratory distress, no tachypnea
MSK: No gross deformity or injuries. Morbid obesity limits exam, no gross knee effusion
Skin: Good color, no pallor or jaundice, no rashes
Neuro: AO x3, moves all extremities freely
Psych: Calm, cooperative
Course
Orders/Labs/Results
Orders:
Orders
01/01/24 15:55
Triamcinolone Acetonide [Kenalog-10] 10 mg INTRAARTIC NOW STA
01/01/24 16:03
Triamcinolone Acetonide [Kenalog-10] 10 mg INTRAARTIC NOW STA
01/01/24 16:15
Ketorolac [Toradol] 30 mg IM NOW STA
Vital Signs
Initial and Last Documented VS:
Initial Vital Signs
Temp Pulse Resp BP Pulse Ox
98.2 F 125 22 163/117 97
01/01/24 13:23 01/01/24 13:23 01/01/24 13:23 01/01/24 13:23 01/01/24 13:23
Last Documented Vital Signs
Temp Pulse Resp BP Pulse Ox
98.2 F 102 22 133/93 98
01/01/24 13:23 01/01/24 16:23 01/01/24 16:23 01/01/24 16:23 01/01/24 16:23
MDM/Problems Addressed
MDM/Problems Addressed:
10 mg of Kenalog mixed with 1.5 mL of 2% lidocaine injected into the bilateral knee intra-articular spaces, patient tolerated this well. Patient requesting pain medication, no narcotics provided as he has been to this ER numerous times and received
small quantities of narcotics. Will prescribe NSAIDs, recommend orthopedic follow-up and free clinic follow-up
*Critical Care Note
Total Time (30-74mins, 75-104mins- exclusive of procedures): Not Applicable
ED Attending Note
-
Portions of this chart may have been created with voice recognition software.� Occasional wrong word or��sound alike� substitutions may have occurred due to the inherent limitations of voice recognition software.
Discharge Plan
Departure
Patient Disposition: Home (Routine Discharge)
Date of Disposition: 01/01/24
Time of Disposition: 16:30
Patient with high blood pressure during this ER visit?: Yes
Discharge Problem:
Bilateral chronic knee pain
Instructions: Osteoarthritis (DC)
Prescriptions:
New
celecoxib [Celebrex] 200 mg capsule
200 mg PO BID Qty: 20 0RF
No Action
ibuprofen 400 mg Tablet
400 mg PO Q6HPRN PRN (Reason: mildpain)
acetaminophen 325 mg Tablet
650 mg PO Q4HPRN PRN (Reason: mild pain/BURGESS/temp> 100.4F) Qty: 0 0RF
repaglinide 1 mg Tablet
1 mg PO MEALS Qty: 90 0RF
metformin 1,000 MG tablet
1,000 mg PO BID@0800,1700 Qty: 60 0RF
insulin glargine [Basaglar KwikPen U-100 Insulin] 100 UNIT/ML insulin pen
27 unit SC BID Qty: 15 0RF
lisinopril 20 MG tablet
40 mg PO DAILY Qty: 30 0RF
hydrochlorothiazide 12.5 mg Capsule
12.5 mg PO DAILY Qty: 30 0RF
meloxicam 15 mg tablet
15 mg PO DAILY Qty: 30 0RF
mupirocin 2 % ointment
1 applic topical TID 7 Days Qty: 22 0RF
doxycycline hyclate 100 mg capsule
100 mg PO BID 7 Days Qty: 14 0RF
oxycodone-acetaminophen [Percocet] 5-325 mg Tablet
1 tab PO Q6HPRN PRN (Reason: pain) Qty: 6 0RF
albuterol sulfate [ProAir HFA] 90 mcg/actuation Hfa Aerosol Inhaler
2 puff INHALATION Q4HPRN PRN (Reason: shortness of breath) Qty: 8.5 0RF
oxycodone-acetaminophen [Percocet] 5-325 mg Tablet
1 tab PO Q6HPRN PRN (Reason: pain) Qty: 12 0RF
prednisone 50 mg Tablet
50 mg PO DAILY Qty: 3 0RF
azithromycin [Zithromax Z-Magdy] 250 mg tablet
250 mg PO DAILY 6 Days Qty: 6 0RF
benzonatate 100 mg capsule
100 mg PO TID PRN (Reason: Cough) Qty: 14 0RF
sulfamethoxazole-trimethoprim [Bactrim DS] 800-160 mg tablet
1 tab PO BID 7 Days Qty: 14 0RF
Referrals:
UNKNOWN - PT DOES,NOT KNOW [Family Provider] -
Interventions
Interventions:
*Risk Screen - Suicide Last Done: 01/01/24 13:23
*General Assessment Last Done: 01/01/24 13:23
*Neglect/Abuse Screening Last Done: 01/01/24 13:23
ED- Fall Risk Assessment Last Done: 01/01/24 14:25
*ED COVID-19 Vaccine History Last Done: 01/01/24 14:18
*Nursing Disposition Last Done: 01/01/24 16:45
ED-Musculoskeletal Assessment Last Done: 01/01/24 14:25
Discharge Date and Time
Discharge Date/Time: 01/01/24 16:46
Print Language: FRENCH
[2024-01-01] MEDS: TORADOL 30 MG IM (16:19)
[2024-01-01 16:23] VITALS: BP 133/93
[2024-01-01] MEDS: KENALOG-10 10 MG INTRAARTIC ×2 (16:27→16:28)
--- NOTE | 2024-01-01 16:29 | EDRN ---
Pt given diet raven rere w/ lots of ice as requested.
== END 2024-01-01 16:46 | disposition home or self-care (01) ==
LOC: EMR 12:59
PROVIDERS: EMERGENCY PHYSICIAN Emergency Medicine
DX: G89.29 Other chronic pain (principal); M25.562 Pain in left knee; M25.561 Pain in right knee; I10 Essential (primary) hypertension; E78.00 Pure hypercholesterolemia, unspecified; E11.9 Type 2 diabetes mellitus without complications; F32.A Depression, unspecified; F17.200 Nicotine dependence, unspecified, uncomplicated; Z83.3 Family history of diabetes mellitus; Z90.49 Acquired absence of other specified parts of digestive tract
CPT/HCPCS: 99282; 96372

== ENCOUNTER 2024-01-02 06:14 | Observation (INO) | payer SELFPAY ==
[2024-01-02] VITALS (14 sets, daily range): BP systolic 138–186; BP diastolic 67–111; PULSE 102; O2SAT 96; BMI 50.0; BMI 50.9; BMI 50.8
[2024-01-02 01:53] LABS: Glucose - Point of Care 517 mg/dl (70-99)
--- NOTE | 2024-01-02 02:09 | ED.GENMED ---
History of Present Illness
General
Chief Complaint: Musculo-Skeletal Complaint
Source: patient
Exam Limitations: none
Time Seen by Provider: 01/02/24 01:57
Travel History
Have you had any contact with someone who has COVID-19?: No
Do you have any symptoms of coronavirus? Fever > 100 degrees, chills, cough, shortness of breath, sore throat, loss of taste or smell, muscle aches, or headache?: No
History of Present Illness
History of Present Illness:
This is a 43 year old male that comes in tonight with bilateral knee pain. Patient was seen here yesterday and had injections into both knee's. Patient states that now the pain is so bad he can't walk. States that he is SOB and has a headache.
States that he has some chest discomfort for a little when he was sitting in the waiting room. Denies any fever, chills, abd pain, nausea, vomiting, diarrhea, dizziness, urinary burning.
Past History
Past History
ED Past Medical History: HTN, Hypercholesterolemia, IDDM, Psychiatric (Depression) and Other (Abscess, Pancreatitis)
ED Past Surgical History: Cholecystectomy, Orthopedic and Other (Previous abscess drainage)
Social History
Tobacco: Smoker
Alcohol: Occasional
Drug: None
Personal: Single
Living: with family
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
Family History
Family History: Diabetes; Negative CAD
Review of Systems
Review of Systems
All Other Systems: ROS reviewed and negative except as documented in HPI and ROS
Constitutional: Reports no symptoms; Denies fever or chills
EENT: Reports no symptoms
Respiratory: Reports trouble breathing; Denies cough
Cardiac: Reports no symptoms; Denies chest pain
ABD/GI: Reports no symptoms; Denies abdominal pain, nausea, vomiting or diarrhea
: Reports frequency; Denies dysuria or urgency
Musculoskeletal: Reports joint pain (Bilateral knee pain)
Skin: Reports no symptoms
Neurological: Reports headache; Denies dizzy
Psychiatric: Reports no symptoms
Phy Exam
General Physical Exam
General Presentation: mild distress
General age: appears stated age
General Skin: warm and dry
General Habitus: obese
General Mental: alert
General Hydration: appears well hydrated
ENT Exam
ENT Exam: TM's normal, pharynx normal and neck supple
Eye Exam
Eye Exam: EOMI
Cardiovascular Exam
Cardiovascular Exam: regular rate/rhythm, no edema and normal peripheral pulses
Pulmonary Exam
Pulmonary Exam: no respiratory distress, no rales, chest non tender, no crackles, no rhonchi, no cough and other (faint exp wheezing noted)
Gastrointestinal Exam
Gastrointestinal Exam: normal bowel sounds, non tender, soft, no organomegaly, no pulsatile mass, non distended and other (Obese)
Musculoskeletal Exam
Musculoskeletal Exam: other (limited ROM of both knee's. tender to palpation on the right and left knee on the medial and lateral aspect. Negative for any redness or swelling)
Skin Exam
Skin Exam: normal color, warm/dry, no rash and no petechia
Course
Orders/Labs/Results
Orders:
Orders
01/02/24 02:05
CMP [Comprehensive Metabolic Panel] Urgent
Complete Blood Count/With Diff Urgent
01/02/24 02:08
0.9% Sodium Chloride 1000 ml [Nss] 1,000 ml IV BOLUS
Knee, Left 4 or More Views [CR Knee - Left 4 Or More View*] Urgent
Comment:
Reason For Exam: Bilateral knee pain
Knee, Right 4 or More Views [CR Knee- Right 4 Or More View*] Urgent
Comment:
Reason For Exam: Bilateral knee pain
01/02/24 02:13
Electrocardiogram (*1) Urgent
Reason for Study: Chest Pain
EKG- Treatment ONCE
Oxycodone/Acetaminophen [Percocet 5/325] 1 tablet PO NOW STA
01/02/24 02:32
Troponin I Urgent
01/02/24 03:27
Insulin Aspart [NOVOLOG vial] 14 units SC NOW STA
01/02/24 03:28
Reg Insulin 100 Units/100 ml [Novolin R Insulin Infusion] 100 units in 100 ml IV NOW
01/02/24 03:32
HYDROmorphone [Dilaudid] 0.5 mg IV NOW STA
Abnormal Lab Results
01/02/24 01/02/24
01:52 02:05
MPV 11.7 H fL
(7.4-10.4)
Absolute Neuts (auto) 8.6 H 10^3/uL
(1.4-6.5)
Neutrophils % 81.9 H %
(42.2-75.2)
Lymphocytes % 14.4 L %
(20.5-51.1)
Sodium 134 L mmol/L
(135-145)
Creatinine 0.5 L mg/dL
(0.7-1.3)
Glucose 612 H* mg/dl
(70-99)
ALT 69 H U/L
(0-50)
Alkaline Phosphatase 210 H U/L
(38-126)
POC Glucose 517 H* mg/dl
(70-99)
01/02/24 02:05
01/02/24 02:05
Hyperglycemia, ALT elevation. Alk phos elevation. troponin <0.012
Vital Signs
Initial and Last Documented VS:
Initial Vital Signs
Temp Pulse Resp BP Pulse Ox
99.0 F 119 19 182/111 96
01/02/24 00:29 01/02/24 00:29 01/02/24 00:29 01/02/24 00:29 01/02/24 00:29
Last Documented Vital Signs
Temp Pulse Resp BP Pulse Ox
98.9 F 113 24 178/106 96
01/02/24 01:46 01/02/24 01:46 01/02/24 01:46 01/02/24 02:34 01/02/24 02:45
MDM/Problems Addressed
Differential Diagnosis Includes:
chronic knee pain, Hyperglycemia,
MDM/Problems Addressed:
This is a 43 year old male that comes in with c/o bilateral knee pain. Patient was here on the and had injections into both knee's due to his pain. Patient returns tonight with increased pain and SOB.
Will check labs and get X-rays of both knee's. Will give IV fluids.
Back into see patient. Explained that his Blood sugar is every high. Patient has been given IV fluids and will be started on an insulin drip. Will admit patient. Patient is very upset as his is in ICU. Hospitalist notified.
Chronic conditions affecting care: DM and Other (Chronic knee pain)
Acute Exacerbation and/or Progression of Chronic Illness: DM
*Radiology
Radiology exam reviewed: preliminary read by ED provider (Right and left knee's = Negative for fracture or dislocation. )
*Pulse Oximetry
Patient hypoxic: no
*EKG
Interpreted by ED Provider?: Yes
Heart Rate: 108
Rate: tachycardiac
Rhythm: sinus tachycardia
[place]: normal axis
Interval: normal interval
QRS Pattern: right bundle branch block (Incomplete)
Ischemia: no ischemia
*Product Mgmt Dev Manager Interpretation
Rate: Product Mgmt Dev Manager- N/A
*Critical Care Note
Total Time (30-74mins, 75-104mins- exclusive of procedures): Not Applicable
ED Attending Note
-
Portions of this chart may have been created with voice recognition software.� Occasional wrong word or��sound alike� substitutions may have occurred due to the inherent limitations of voice recognition software.
Discharge Plan
Departure
Patient Disposition: Admit
Date of Disposition: 01/02/24
Time of Disposition: 03:42
Admit to: IMU
Presentation/result/management discussed w/ accepting MD/DO: Hospitalist
Patient with high blood pressure during this ER visit?: Yes
Condition: Good
Covid-19: Not Applicable
Discharge Problem:
Acute hyperglycemia, Bilateral knee pain
Prescriptions:
No Action
ibuprofen 400 mg Tablet
400 mg PO Q6HPRN PRN (Reason: mildpain)
acetaminophen 325 mg Tablet
650 mg PO Q4HPRN PRN (Reason: mild pain/BURGESS/temp> 100.4F) Qty: 0 0RF
repaglinide 1 mg Tablet
1 mg PO MEALS Qty: 90 0RF
metformin 1,000 MG tablet
1,000 mg PO BID@0800,1700 Qty: 60 0RF
insulin glargine [Basaglar KwikPen U-100 Insulin] 100 UNIT/ML insulin pen
27 unit SC BID Qty: 15 0RF
lisinopril 20 MG tablet
40 mg PO DAILY Qty: 30 0RF
hydrochlorothiazide 12.5 mg Capsule
12.5 mg PO DAILY Qty: 30 0RF
oxycodone-acetaminophen [Percocet] 5-325 mg Tablet
1 tab PO Q6HPRN PRN (Reason: pain) Qty: 6 0RF
celecoxib [Celebrex] 200 mg capsule
200 mg PO BID Qty: 20 0RF
mupirocin 2 % ointment
1 applic topical TID PRN (Reason: hydrotinitis flair)
Interventions
Interventions:
*Risk Screen - Suicide Last Done: 01/02/24 00:29
*General Assessment Last Done: 01/02/24 00:29
*Neglect/Abuse Screening Last Done: 01/02/24 00:29
ED- Fall Risk Assessment Last Done: 01/02/24 01:46
*ED COVID-19 Vaccine History Last Done: 01/02/24 00:29
ED-Musculoskeletal Assessment Last Done: 01/02/24 01:46
Discharge Date and Time
Print Language: WELSH
[2024-01-02 02:13] LABS: % Basophils 0.2 % (0-2); % Immature Granulocytes 0.4 % (0-0.5); % Lymphocytes 14.4 % (20.5-51.1); % Monocytes 3.1 % (1.7-9.3); % Neutrophils 81.9 % (42.2-75.2); Absolute Lymphocytes 1.5 10^3/uL (1.2-3.4); Absolute Monocytes 0.3 10^3/uL (0.1-0.6); Absolute Neutrophils 8.6 10^3/uL (1.4-6.5); Hematocrit 46.3 % (39.0-52.0); Hemoglobin 15.7 g/dL (13.0-18.0); Mean Corp Hgb Conc. 33.9 g/dL (33.0-37.0); Mean Corpuscular Hgb 29.8 pg (27.0-31.0); Mean Corpuscular Volume 87.9 fL (80.0-94.0); Mean Platelet Volume 11.7 fL (7.4-10.4); Nucleated Red Blood Cells % 0 % (-); Platelet Count 232 10^3/uL (130-400); Red Blood Cell Count 5.27 10^6/uL (4.70-6.10); Red Cell Dist. Width 13.3 % (11.5-14.5); White Blood Cell Count 10.5 10^3/uL (4.8-10.8)
[2024-01-02] MEDS: PERCOCET 5/325 1 TABLET PO (02:29)
[2024-01-02] MEDS: NSS 1000 IV ×4 (02:32→23:29)
[2024-01-02 03:10] LABS: Troponin I < 0.012 ng/ml
[2024-01-02 03:16] LABS: ALT (SGPT) 69 U/L (0-50); AST (SGOT) 56 U/L (17-59); Albumin 4.3 g/dl (3.5-5.0); Alkaline Phosphatase 210 U/L (38-126); Blood Urea Nitrogen 16 mg/dl (9-20); Calcium 10.2 mg/dl (8.4-10.2); Carbon Dioxide 23 mmol/L (22-30); Chloride 98 mmol/L (98-107); Estimated Creatinine Clearance > 125 ml/min; Glucose 612 mg/dl (70-99); Potassium 4.8 mmol/L (3.5-5.1); Sodium 134 mmol/L (135-145); Total Bilirubin 0.7 mg/dl (0.2-1.3); eGFR > 60.00
[2024-01-02] MEDS: NOVOLOG vial 14 UNITS SC (03:46)
[2024-01-02] MEDS: DILAUDID 0.5 MG IV (03:49)
[2024-01-02] MEDS: NOVOLIN R INSULIN INFUSION 100 IV (04:02)
[2024-01-02 04:14] LABS: B-Hydroxybutyrate 0.18 mmol/L (0.02-0.27)
[2024-01-02 05:01] LABS: Glucose - Point of Care 313 mg/dl (70-99)
--- NOTE | 2024-01-02 05:21 | HPS.HSE ---
Family Physician
-
Family Physician:
Chief Complaint
-
Bilateral knee pain
History of Present Illness
Patient is a 43y M with PMH significant for obesity, HTN and DM-II who presents to ED complaining of knee pain, polyuria and polydipsia. Patient states that he has been dealing with chronic bilateral knee pain for quite some time. He has had
recent increase in his pain and was unable to see his usual physicians (PCP and Ortho - not at this institution). Patient presented to the ED here this afternoon and received bilateral steroid injections in the knees. He was discharged to home,
This evening, he noted gradually worsening knee pain, increased thirst and frequent urination beginning around 10 PM. His symptoms worsened and patient presented to the ED for further evaluation.
In the ED, patient is noted to have glucose > 600.
Medical History
Past Medical History
Past Medical History: Reports Other
Additional Past Medical History:
Hypertension
DM-II
Morbid Obesity
Hidradenitis Suppurativa
Past Surgical History: Reports Other
Additional Past Surgical History:
Cholecystectomy
Left Hand Surgery
Abscess I&D
Social History
Tobacco: Smoker (Current every day smoker.)
Alcohol: None
Drug: None
Personal:
Living: With Family
Family History
Family History: Not pertinent
Allergies / Home Medications
Allergies reflects when Allergies were last updated in [facility].
Home Medications with original date entered in [facility]
Allergy/Medication List:
Allergies
Allergy/AdvReac Type Severity Reaction Status Date / Time
shellfish derived Allergy Anaphylaxis Verified 01/02/24 00:29
Home Medications
ibuprofen 400 mg tablet 400 mg PO Q6HPRN PRN mildpain 11/18/23
acetaminophen 325 mg tablet 650 mg (2 x 325 mg) PO Q4HPRN PRN mild pain/BURGESS/temp> 100.4F #0 tabs 11/21/23
hydrochlorothiazide 12.5 mg capsule 12.5 mg PO DAILY #30 caps 11/21/23
insulin glargine 100 unit/mL (3 mL) subcutaneous pen (Basaglar KwikPen U-100 Insulin) 27 unit (0.27 mL) SC BID Diabetes #15 mL 11/21/23
lisinopril 20 mg tablet 40 mg (2 x 20 mg) PO DAILY Blood pressure #30 tabs 11/21/23
metformin 1,000 mg tablet 1,000 mg PO BID@0800,1700 Diabetes #60 tabs 11/21/23
repaglinide 1 mg tablet 1 mg PO MEALS #90 tabs 11/21/23
oxycodone-acetaminophen 5 mg-325 mg tablet (Percocet) 1 tab PO Q6HPRN PRN pain #6 tabs 12/13/23
celecoxib 200 mg capsule (Celebrex) 200 mg PO BID #20 caps 01/01/24
mupirocin 2 % topical ointment 1 applic topical TID PRN hydrotinitis flair 01/02/24
Review of Systems
-
History Source: Patient
A 12 point ROS was completed and negative except as noted: Yes
Constitutional: Denies Fever or Chills
EENT: Denies Sore Throat
Respiratory: Denies Cough or Trouble Breathing
Cardiac: Denies Chest Pain or Palpitations
Abdomen/GI: Denies Abdominal Pain, Nausea, Vomiting or Diarrhea
: Reports Frequency; Denies Dysuria
Musculoskeletal: Reports Joint Pain; Denies Edema
Neurological: Reports Headache; Denies Dizzy
Endocrine: Reports Polyuria and Polydipsia
Psych: Reports Depression and Anxiety
Physical Exam
Vital Signs
Vital Signs
Temp Pulse Resp BP Pulse Ox
98.9 F 104 24 149/93 95
01/02/24 01:46 01/02/24 04:30 01/02/24 04:30 01/02/24 04:23 01/02/24 04:30
Physical Exam
General: Other (43y M in mild distress due to pain.)
HEENT: Moist mucous membranes and Other (Thick neck.)
Respiratory: Clear; No Wheezes, Rales or Rhonchi
Cardiac: S1/S2 and Regular Rhythm; No Murmur
GI: Non Tender, Non Distended, Normal Bowel Sounds and Other (Obese)
Musculoskeletal: No Clubbing, No Cyanosis, No Edema and Other (No evident joint effusions, increased warmth, etc noted on exam.)
Skin: Other (few small skin lesions / acne lesions posterior neck area)
Neuro: AO x 3
Laboratory Results
-
01/02/24 02:05
01/02/24 02:05
Laboratory Results
Total Bilirubin 0.7 mg/dl (0.2-1.3) 01/02/24 02:05
AST 56 U/L (17-59) 01/02/24 02:05
ALT 69 U/L (0-50) H 01/02/24 02:05
Alkaline Phosphatase 210 U/L (38-126) H 01/02/24 02:05
Troponin I < 0.012 ng/ml 01/02/24 02:32
Impression/Plan
-
A/P: Patient is a 43y M with PMH significant for HTN, DM-II and obesity who presents to ED c/o worsening knee pain and symptomatic hyperglycemia.
Symptomatic Hyperglycemia
- Observe overnight for further evaluation and treatment.
- Likely secondary to underling DM and steroid injections to the bilateral knees.
- No anion gap acidosis / evidence for DKA.
- IVF support.
- Subcutaneous insulin and adjust as needed for improved DM control.
- Can stop insulin infusion.
- DM Educator evaluation / counseling.
- Patient having some recent issues obtaining meds, getting physician appts and is interested in local PCP.
Bilateral Knee Pain
- Unclear etiology of his extreme discomfort.
- X-rays today and in the past do not show marked amount of arthritis changes.
- Check ESR.
- Ortho evaluation for additional recommendations given increased pain s/p injections.
- Weight loss strategies.
Benign Hypertension
- Stable. Continue outpatient medications.
Hidradenitis
- Stable at present. Follow for any new / worsening skin lesions or abscesses.
Morbid Obesity due to excess calories
- Affects all aspects of care - including chronic joint pains.
- Encourage healthy diet and increased activity with goal of weight loss.
- Would likely benefit from SGLT2 inhibitor, etc.
DVT Prophylaxis: Lovenox
Code Status: Full
[2024-01-02 06:33] LABS: Glucose - Point of Care 272 mg/dl (70-99)
[2024-01-02 07:25] LABS: TSH Reflex To Free T4 0.49 uIU/ml (0.47-4.68)
[2024-01-02] MEDS: ZESTRIL 40 MG PO (07:50)
[2024-01-02] MEDS: CELEBREX 200 MG PO (07:51)
[2024-01-02 08:06] LABS: Erythrocyte Sed Rate 13 mm/hour (0-20)
[2024-01-02] MEDS: MOBIC PO (08:40)
[2024-01-02] MEDS: ORETIC 12.5 MG PO (08:40)
[2024-01-02] MEDS: NICODERM TRANSDERMAL 14 MG TRANSDERM (08:40)
[2024-01-02 09:30] LABS: Glucose - Point of Care 238 mg/dl (70-99)
[2024-01-02] MEDS: NOVOLOG FLEXPEN-MODERATE RESISTANCE 300 UNITS SC ×2 (09:32→16:26)
[2024-01-02] MEDS: LANTUS 0.299999999999999989 UNITS SC ×2 (09:32→22:05)
[2024-01-02] MEDS: ROXICODONE 5 MG PO ×3 (09:37→19:19)
[2024-01-02] MEDS: MORPHINE SULFATE 2 MG IV ×2 (11:50→22:06)
--- NOTE | 2024-01-02 11:50 | CM ---
CM met with patient in room. Patient confirmed demographics. Patient lives independently with . Patient does not have a history of VN, SNF or DME. Patient stated that he is active with his PCP. Patient uses [facility]. Patient stated that
he has been approved for Medicaid and knows to call for his ACCESS number should he need any medications filled.
Patient's is currently in the ICU and he would like to visit her. CM stated that nursing would have to approve. He is very upset and tearful regarding his 's hospitalization. CM provided emotional support.
OBS letter signed.
PLAN: Home no needs.
[2024-01-02] MEDS: PRANDIN 1 MG PO ×2 (11:51→17:47)
--- NOTE | 2024-01-02 11:57 | PN.DE ---
Diabetes Education
- -
01/02/2024 Diabetes Education Consult
Patient well known to diabetes team from previous admissions. Admitted with bilateral knee pain. Prior to admission patient diabetes regimen ordered lantus 27 units BID, metformin 1000 BID and repaglinide 1 mg AC. Patient states he ran out of
medicine but now will have [place] first so will have coverage. He is able to self inject and has a glucose monitor. Will return if needed.
--- NOTE | 2024-01-02 12:17 | CON.ORTHO ---
Consultation
-
Date/Time Consultation Requested: January 15/0658
Date/Time Consultation Performed: January 15/1215
Requesting Provider: Vasquez
Performing Provider: Zakia Garcia
Reason for Consultation: B/L knee pain
Consultation - Orthopedics
History
Dictation#[id number]
Asked to see this pleasant 43-year-old male with PMH of HTN, Hypercholesterolemia, IDDM, Depression, Pancreatitis, who was seen in the ED yesterday with significant bilateral knee pain. He follows with an orthopedist at [facility]
(Dr. Pitts). he presented yesterday requesting steroid injections. He has presented to the ED with similar complaints/requests. . Injections were provided. he presented back to the ED with significant increased bilateral knee pain and
hyperglycemia ( sugars in the 600s). being treated for hyperglycemia at this time. was requested by Dr. Joseph with regards to his knee pain
Allergies / Home Medications
Allergy/AdvReac Type Severity Reaction Status Date / Time
shellfish derived Allergy Anaphylaxis Verified 01/02/24 00:29
�Medication �Instructions �Recorded
hydrochlorothiazide 12.5 mg capsule 12.5 mg PO DAILY #30 caps 11/21/23
lisinopril 20 mg tablet 40 mg (2 x 20 mg) PO DAILY Blood 11/21/23
pressure #30 tabs
metformin 1,000 mg tablet 1,000 mg PO BID@0800,1700 Diabetes 11/21/23
#60 tabs
repaglinide 1 mg tablet 1 mg PO MEALS #90 tabs 11/21/23
oxycodone-acetaminophen 5 mg-325 1 tab PO Q6HPRN PRN pain #6 tabs 12/13/23
mg tablet (Percocet)
acetaminophen 325 mg tablet 650 mg PO BIDPRN PRN mild pain 01/02/24
(Tylenol)
insulin glargine 100 unit/mL 30 unit SC BID 01/02/24
subcutaneous solution (Lantus
U-100 Insulin)
meloxicam 15 mg tablet 15 mg PO DAILY 01/02/24
Vital Signs / Lab Results
Temp Pulse Resp BP Pulse Ox
98.9 F 96 24 144/79 97
01/02/24 01:46 01/02/24 10:00 01/02/24 10:00 01/02/24 09:00 01/02/24 10:00
01/02/24 02:05
01/02/24 02:05
Assessment / Plan
PE: Afeb. ED31. morbidly obese male with ice packs on his knees. Skin is intact. No obvious or palpable deformities. Trace effusion. Medial and lateral joint line tenderness. Limited range of motion due to pain. Calves are soft and nontender.
Neurovascularly intact
Xrays: B/L knees with mild tricompartmental OA. No acute abnormalities
Impression: B/L knee OA. Steroid flare
Plan: Reassured the patient that increased pain in his knees for a few days after steroid injections can be completely normal. Continue supportive care for his knees. Continue treatment of his hyperglycemia by Dr. Joseph. When medically
optimized and discharged he can follow back up with his attending orthopedist at [facility], Dr. Pitts. Orthopaedics to sign off for now
--- NOTE | 2024-01-02 12:19 | W.PN.HOSP.TC ---
Today's Communication/Plan
-
Monitor vital signs see plan
Monitor blood sugars
Continue with insulin
Pain control
PT/OT
Ortho to see today
Nonbillable note
Assessment / Plan
Assessment / Plan
General: No acute distress
HEENT: Moist mucous membranes and Other (Thick neck.)
Respiratory: Clear; No Wheezes, Rales or Rhonchi
Cardiac: S1/S2 and Regular Rhythm; No Murmur
GI: Non Tender, Non Distended, Normal Bowel Sounds and Other (Obese)
Musculoskeletal: No Edema and Other (No evident joint effusions, increased warmth, etc noted on exam.)
Skin: Other (few small skin lesions / acne lesions posterior neck area)
Neuro: AO x 3
Symptomatic Hyperglycemia
- Likely secondary to underling DM and steroid injections to the bilateral knees.
- No anion gap acidosis / evidence for DKA.
- IVF support.
- Subcutaneous insulin and adjust as needed for improved DM control.
Was initially started on insulin infusion in ED which is now stopped
- DM Educator evaluation / counseling.
- Patient having some recent issues obtaining meds, getting physician appts and is interested in local PCP.
Bilateral Knee Pain
- Unclear etiology of his extreme discomfort. Suspect secondary to osteoarthritis possible ligament problem
- X-rays shows osteoarthritis
ESR not elevated
Status post knee injection by ED 01/01/24; postinjection patient went home however pain got worse which prompted him to come back to the ED.
Suspect increased pain secondary to recent injection
Ortho consulted
- Weight loss strategies.
Pseudohyponatremia
Monitor
Mild LFT elevation
Monitor
Benign Hypertension
- Stable. Continue outpatient medications.
Hidradenitis
- Stable at present. Follow for any new / worsening skin lesions or abscesses.
Morbid Obesity due to excess calories
- Affects all aspects of care - including chronic joint pains.
- Encourage healthy diet and increased activity with goal of weight loss.
- Would likely benefit from SGLT2 inhibitor, etc.
DVT Prophylaxis: Lovenox
Code Status: Full
Anticipated Discharge: Within 24 hours
Subjective/Interval History
-
Date of Service: January 02, 2024
has some pain
Objective Data
-
Labs:
Laboratory Results
01/02/24
02:05
WBC 10.5
Hgb 15.7
Hct 46.3
Plt Count 232
Sodium 134 L
Potassium 4.8
Chloride 98
Carbon Dioxide 23
BUN 16
Creatinine 0.5 L
Glucose 612 H*
Calcium 10.2
Total Bilirubin 0.7
AST 56
ALT 69 H
Alkaline Phosphatase 210 H
Vital Signs:
Vital Signs
Temp Pulse Resp BP Pulse Ox
98.9 F 96 24 144/79 97
01/02/24 01:46 01/02/24 10:00 01/02/24 10:00 01/02/24 09:00 01/02/24 10:00
[2024-01-02 13:05] LABS: Glucose - Point of Care 261 mg/dl (70-99)
[2024-01-02] MEDS: NOVOLOG FLEXPEN-MODERATE RESISTANCE 5 UNITS SC (13:14)
[2024-01-02 16:20] LABS: Glucose - Point of Care 277 mg/dl (70-99)
--- NOTE | 2024-01-02 17:15 | PTCARENOTE ---
pt admitted from ED awake and alert. lung sounds diminished B/l, on RA. regular heart sounds, round obese belly. +BS x4 pt reports last BM this AM. cont b&B pt reports acute on chronic left knee pain, reports injection in ED yesterday and presents
with worsening pain today. pt reports stress, his in ICU. support offered. skin CDI intact although irritation present at tip of penis. +PP b/L. CB in reach.
[2024-01-02] MEDS: LOVENOX 40 MG SC (17:47)
[2024-01-02] MEDS: TYLENOL 650 MG PO (18:22)
[2024-01-02 21:55] LABS: Glucose - Point of Care 253 mg/dl (70-99)
[2024-01-02] MEDS: ANTIFUNGAL CLEAR 1 APPLIC TOPICAL (23:30)
[2024-01-03] MEDS: ROXICODONE 5 MG PO ×3 (03:47→12:45)
[2024-01-03 05:43] LABS: Hematocrit 44.3 % (39.0-52.0); Hemoglobin 14.6 g/dL (13.0-18.0); Mean Corpuscular Hgb 29.7 pg (27.0-31.0); Mean Platelet Volume 11.6 fL (7.4-10.4); Platelet Count 208 10^3/uL (130-400); Red Blood Cell Count 4.92 10^6/uL (4.70-6.10); Red Cell Dist. Width 13.5 % (11.5-14.5); White Blood Cell Count 13.1 10^3/uL (4.8-10.8)
[2024-01-03 06:24] LABS: Blood Urea Nitrogen 18 mg/dl (9-20); Calcium 8.6 mg/dl (8.4-10.2); Carbon Dioxide 28 mmol/L (22-30); Chloride 99 mmol/L (98-107); Estimated Creatinine Clearance > 125 ml/min; Glucose 134 mg/dl (70-99); Potassium 3.9 mmol/L (3.5-5.1); Sodium 135 mmol/L (135-145); eGFR > 60.00
[2024-01-03] MEDS: NSS 1000 IV (06:40)
[2024-01-03 07:00] VITALS: BP 150/97
[2024-01-03] MEDS: NICODERM TRANSDERMAL 14 MG TRANSDERM (08:06)
[2024-01-03] MEDS: MOBIC 15 MG PO (08:07)
[2024-01-03] MEDS: PRANDIN 1 MG PO ×2 (08:07→11:19)
[2024-01-03] MEDS: ORETIC 12.5 MG PO (08:07)
[2024-01-03] MEDS: ZESTRIL 40 MG PO (08:08)
[2024-01-03 08:19] LABS: Glucose - Point of Care 145 mg/dl (70-99)
[2024-01-03] MEDS: NOVOLOG FLEXPEN-MODERATE RESISTANCE SC (08:19)
[2024-01-03] MEDS: LANTUS 0.299999999999999989 UNITS SC (08:21)
[2024-01-03] MEDS: ANTIFUNGAL CLEAR 1 APPLIC TOPICAL (08:23)
--- NOTE | 2024-01-03 10:31 | W.PN.HOSP.TC ---
Today's Communication/Plan
-
Monitor vital signs and see plan
Discharge today
Patient will follow-up with orthopedics outpatient
Time of discharge 36 minutes
Assessment / Plan
Assessment / Plan
General: No acute distress
HEENT: Moist mucous membranes and Other (Thick neck.)
Respiratory: Clear; No Wheezes, Rales or Rhonchi
Cardiac: S1/S2 and Regular Rhythm; No Murmur
GI: Non Tender, Non Distended, Normal Bowel Sounds and Other (Obese)
Musculoskeletal: No Edema and Other (No evident joint effusions, increased warmth, etc noted on exam.)
Neuro: AO x 3
Symptomatic Hyperglycemia
Now improved
- Likely secondary to underling DM and steroid injections to the bilateral knees.
- No anion gap acidosis / evidence for DKA.
- Subcutaneous insulin and adjust as needed for improved DM control.
Was initially started on insulin infusion in ED which is now stopped
- DM Educator evaluation / counseling.
- Patient having some recent issues obtaining meds, getting physician appts and is interested in local PCP.
Bilateral Knee Pain
- Unclear etiology of his extreme discomfort. Suspect secondary to osteoarthritis possible ligament problem
- X-rays shows osteoarthritis
ESR not elevated
Status post knee injection by ED 01/01/24; postinjection patient went home however pain got worse which prompted him to come back to the ED.
Suspect increased pain secondary to recent injection
Ortho following, instructed patient to follow-up with them outpatient
- Weight loss strategies.
Pseudohyponatremia
Resolved
Mild LFT elevation
Monitor
Benign Hypertension
- Stable. Continue outpatient medications.
Hidradenitis
- Stable at present. Follow for any new / worsening skin lesions or abscesses.
Morbid Obesity due to excess calories
- Affects all aspects of care - including chronic joint pains.
- Encourage healthy diet and increased activity with goal of weight loss.
- Would likely benefit from SGLT2 inhibitor, etc.
DVT Prophylaxis: Lovenox
Code Status: Full
Anticipated Discharge: Today
Subjective/Interval History
-
Date of Service: January 03, 2024
pain is better
Objective Data
-
Labs:
Laboratory Results
01/03/24
05:09
WBC 13.1 H
Hgb 14.6
Hct 44.3
Plt Count 208
Sodium 135
Potassium 3.9
Chloride 99
Carbon Dioxide 28
BUN 18
Creatinine 0.4 L
Glucose 134 H
Calcium 8.6 D
Vital Signs:
Vital Signs
Temp Pulse Resp BP Pulse Ox
97.5 F 80 18 150/97 96
01/03/24 07:00 01/03/24 08:08 01/03/24 07:00 01/03/24 08:08 01/03/24 07:00
I&O
01/02/24 01/03/24 01/04/24
06:59 06:59 06:59
Intake Total 1739
Balance 174 174
--- NOTE | 2024-01-03 10:41 | W.DCSUMMARY ---
Discharge Summary
Discharge Data
Date of Admission: 01/02/24
Date of Discharge: 01/03/24
-
Pending Results: No
Hospital Course
43-year-old male with past medical history of diabetes mellitus, hidradenitis suppurative, hypertension, osteoarthritis came to the hospital with bilateral knee pain and symptomatic hyperglycemia. Prior to the admission patient was in the ED and
received knee corticoid steroid injection and was subsequently discharged from the ED. Later that day patient came back with worsening knee pain and at that time had hyperglycemia so was admitted to the hospital. Patient was also seen by
orthopedics who thought his pain is likely worse secondary to injection however he should follow-up with orthopedics outpatient. His pain later improved and he was able to participate with physical therapy who recommended home on discharge. X-ray
was done which showed osteoarthritis. For his hyperglycemia it was likely thought was secondary to recent steroid injection and was treated with insulin. Patient blood sugars over time improved. Once patient symptoms were improving, he was then
discharged home with instructions to follow-up with all physicians outpatient.
Discharge Plan
-
Patient Disposition: Home (Routine Discharge)
Discharge Diagnosis/Procedures: Bilateral knee pain secondary to osteoarthritis
Uncontrolled diabetes mellitus
Diet: Diabetic, Carb Controlled
Activity: As tolerated
Driving Restrictions: As prior to admission
Bathing Restrictions: None
Activity Restrictions/Additional Instructions:
Follow-up with your orthopedics outpatient
Referrals:
Kadi Bland MD [Family Provider] - in less than 1 week
Prescriptions:
New
Critic-Aid Clear AF(miconazol) 2 % Ointment
1 applic topical BID Qty: 1704 0RF
nicotine 14 mg/24 hr Patch 24 Hour
14 mg transdermal DAILY Qty: 30 0RF
acetaminophen 325 mg Tablet
650 mg PO Q4HPRN PRN (Reason: mild pain/BURGESS/temp> 100.4F) Qty: 0 0RF
oxycodone 5 mg Tablet
5 mg PO Q4HPRN PRN (Reason: moderate to severe pain) Qty: 20 0RF
Continued
metformin 1,000 MG tablet
1,000 mg PO BID@0800,1700 Qty: 60 0RF
meloxicam 15 mg Tablet
15 mg PO DAILY
insulin glargine [Lantus U-100 Insulin] 100 unit/mL Solution
30 unit SC BID
Patient Comments:
01/02/24-patient bought otc at [facility], [place]
lisinopril 20 MG tablet
40 mg PO DAILY Qty: 60 0RF
hydrochlorothiazide 12.5 mg Capsule
12.5 mg PO DAILY Qty: 30 0RF
repaglinide 1 mg Tablet
1 mg PO MEALS Qty: 90 0RF
Discontinued
oxycodone-acetaminophen [Percocet] 5-325 mg Tablet
1 tab PO Q6HPRN PRN (Reason: pain) Qty: 6 0RF
acetaminophen [Tylenol] 325 mg Tablet
650 mg PO BIDPRN PRN (Reason: mild pain)
Discharge Orders:
Discharge Patient (As Directed); Ordered 01/03/24
Ordered By: Geraldo Joseph
Discharge Date and Time
Discharge Date/Time: 01/03/24 13:29
Print Language: URDU
[2024-01-03 11:00] VITALS: BP 155/90
[2024-01-03] MEDS: FLUZONE QUAD 2023-2024 SYRINGE 0.5 ML IM (11:07)
[2024-01-03] MEDS: TYLENOL 650 MG PO (11:10)
[2024-01-03 11:18] LABS: Glucose - Point of Care 242 mg/dl (70-99)
[2024-01-03] MEDS: NOVOLOG FLEXPEN-MODERATE RESISTANCE 3 UNITS SC (11:19)
--- NOTE | 2024-01-03 11:24 | CM ---
Md entered order for discharge.
Spoke with patient he said he is ready for dc.
He said he now has [place] [address] insurance awaiting card.
He said his sister Hannah will drive him home.
He is going to visit in hospital after dc.
PLAN Home no needs
[2024-01-03 12:43] VITALS: BP 155/90
== END 2024-01-03 13:29 | disposition home or self-care (01) ==
LOC: 3 WEST ACU 06:14
PROVIDERS: Clinical Nurse Specialist Family Health; ADMITTING PHYSICIAN Hospitalist; ATTENDING PHYSICIAN Internal Medicine; CONSULT PHYSICIAN Orthopaedic Surgery; EMERGENCY PHYSICIAN Student in an Organized Health Care Education/Training Program; FAMILY PHYSICIAN Student in an Organized Health Care Education/Training Program
DX: M17.0 Bilateral primary osteoarthritis of knee (principal); R06.02 Shortness of breath; R51.9 Headache, unspecified; R07.89 Other chest pain; E11.65 Type 2 diabetes mellitus with hyperglycemia; R35.0 Frequency of micturition; E66.01 Morbid (severe) obesity due to excess calories; E78.00 Pure hypercholesterolemia, unspecified; L73.2 Hidradenitis suppurativa; I10 Essential (primary) hypertension; I45.10 Unspecified right bundle-branch block; G89.29 Other chronic pain; F32.A Depression, unspecified; F17.200 Nicotine dependence, unspecified, uncomplicated; Z90.49 Acquired absence of other specified parts of digestive tract; Z83.3 Family history of diabetes mellitus; Z79.4 Long term (current) use of insulin; Z79.84 Long term (current) use of oral hypoglycemic drugs; Z79.1 Long term (current) use of non-steroidal anti-inflammatories (NSAID); Z79.891 Long term (current) use of opiate analgesic; Z68.43 Body mass index [BMI] 50.0-59.9, adult; Z23 Encounter for immunization; Z91.013 Allergy to seafood; Z87.19 Personal history of other diseases of the digestive system
CPT/HCPCS: 73564; 80048; 80053; 82010; 82962; 83036; 84443; 84484; 85025; 85027; 85652; 90686; 93005; 96361; 96372; 96374; 96375; 99285; 99406; G0008; G0378

== ENCOUNTER 2024-01-24 17:17 | Emergency (ER) | payer OTHER, SELFPAY ==
[2024-01-24 17:17] VITALS: BMI 51.0
[2024-01-24 17:31] VITALS: BP 165/109
[2024-01-24 18:03] LABS: % Basophils 0.3 % (0-2); % Eosinophils 1.7 % (0-6); % Immature Granulocytes 0.4 % (0-0.5); % Lymphocytes 20.4 % (20.5-51.1); % Monocytes 6.4 % (1.7-9.3); % Neutrophils 70.8 % (42.2-75.2); Absolute Eosinophils 0.2 10^3/uL (0-0.7); Absolute Lymphocytes 2.1 10^3/uL (1.2-3.4); Absolute Monocytes 0.7 10^3/uL (0.1-0.6); Absolute Neutrophils 7.2 10^3/uL (1.4-6.5); Hematocrit 48.8 % (39.0-52.0); Hemoglobin 16.4 g/dL (13.0-18.0); Mean Corp Hgb Conc. 33.6 g/dL (33.0-37.0); Mean Corpuscular Hgb 29.4 pg (27.0-31.0); Mean Corpuscular Volume 87.5 fL (80.0-94.0); Mean Platelet Volume 11.6 fL (7.4-10.4); Nucleated Red Blood Cells % 0 % (-); Platelet Count 195 10^3/uL (130-400); Red Blood Cell Count 5.58 10^6/uL (4.70-6.10); Red Cell Dist. Width 13.2 % (11.5-14.5); White Blood Cell Count 10.1 10^3/uL (4.8-10.8)
[2024-01-24 18:14] LABS: ALT (SGPT) 99 U/L (0-50); AST (SGOT) 87 U/L (17-59); Albumin 4.1 g/dl (3.5-5.0); Alkaline Phosphatase 140 U/L (38-126); Blood Urea Nitrogen 13 mg/dl (9-20); Calcium 9.3 mg/dl (8.4-10.2); Carbon Dioxide 25 mmol/L (22-30); Glucose 201 mg/dl (70-99); Lipase 302 U/L (23-300); Total Bilirubin 0.8 mg/dl (0.2-1.3); Total Protein 7.7 g/dl (6.3-8.2); eGFR > 60.00
[2024-01-24 18:21] LABS: Chloride 102 mmol/L (98-107); Potassium 3.8 mmol/L (3.5-5.1); Sodium 137 mmol/L (135-145)
[2024-01-24 18:26] LABS: Troponin I < 0.012 ng/ml
--- NOTE | 2024-01-25 00:38 | ED.GENMED ---
History of Present Illness
General
Chief Complaint: Abdominal Pain
Source: patient
Time Seen by Provider: 01/24/24 23:38
Travel History
Have you had any contact with someone who has COVID-19?: No
Do you have any symptoms of coronavirus? Fever > 100 degrees, chills, cough, shortness of breath, sore throat, loss of taste or smell, muscle aches, or headache?: No
History of Present Illness
History of Present Illness:
43-year-old male frequent visitor to this emergency department who presents to the emergency department for evaluation of generalized abdominal pain, nausea, vomiting and generally feeling unwell over the last 24 hours or so. Patient states the
pain is mainly in the upper part of his abdomen, nonradiating and constant. Notes diminished p.o. intake today. States has a history of similar notes that it is relatively infrequent. He denies any fevers, chills, rigors, bowel changes, urinary
symptoms, chest pain, palpitations, diaphoresis. Triage states that it sometimes difficult to breathe but patient states that due to the pain it causes him he notes difficulty breathing. Social history was overall noncontributory. Patient does
have a history of previous cholecystectomy. Also of note, patient recently got his health insurance back and followed back up with his primary care physician for the first time last week.
Past History
Past History
ED Past Medical History: HTN, Hypercholesterolemia, IDDM, Psychiatric (Depression) and Other (Abscess, Pancreatitis)
ED Past Surgical History: Cholecystectomy, Orthopedic and Other (Previous abscess drainage)
Social History
Tobacco: Smoker
Alcohol: Occasional
Drug: None
Personal: Single
Living: with family
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
Family History
Family History: Diabetes; Negative CAD
Review of Systems
Review of Systems
All Other Systems: ROS reviewed and negative except as documented in HPI and ROS
Phy Exam
Physical Exam
Physical Exam:
GENERAL: Alert , in no apparent distress, Significantly overweight
EYE: clear conjunctiva b/l
HEAD: NCAT
ENT: o/p clr, mmm.
CARDIAC: Tachycardic rate and rhythm, no murmur
LUNGS: Clear breath sounds bilaterally, no acute respiratory distress, no wheezes/rales/rhonchi
ABDOMEN: Soft, diffusely tender, no r/g, no cvat
NEUROLOGICAL: Alert and oriented
SKIN: Warm and dry, skin intact.
MUSCULOSKELETAL: No edema, well perfused.
PSYCH: Normal and appropriate interaction.
Scores
Heart Failure Risk
Heart Failure Risk Score: Not Applicable
Heart Score for Chest Pain Patients
STEMI patient?: Not applicable
Withdrawal Assessment of Alcohol
Withdrawal Assessment Completed?: Not applicable
Course
Orders/Labs/Results
Orders:
Orders
01/24/24 17:33
Electrocardiogram (*1) Urgent
Reason for Study: Abdominal Pain
EKG- Treatment ONCE
01/24/24 17:42
Complete Blood Count/With Diff Urgent
Comprehensive Metabolic Panel Urgent
Lipase Urgent
Troponin I Urgent
01/24/24 23:54
0.9% Sodium Chloride 1000 ml [Nss] 1,000 ml IV BOLUS
Morphine Sulfate 4 mg IV NOW STA
Ondansetron Injectable [Zofran] 4 mg IV NOW STA
01/25/24 00:00
CT Abd/pelvis W Iv Cont Urgent
Reason For Exam: abd pain, vomiting, hx previous cecelia
Abnormal Lab Results
01/24/24
17:42
MPV 11.6 H fL
(7.4-10.4)
Absolute Neuts (auto) 7.2 H 10^3/uL
(1.4-6.5)
Absolute Monos (auto) 0.7 H 10^3/uL
(0.1-0.6)
Lymphocytes % 20.4 L %
(20.5-51.1)
Creatinine 0.4 L mg/dL
(0.7-1.3)
Glucose 201 H mg/dl
(70-99)
AST 87 H U/L
(17-59)
ALT 99 H U/L
(0-50)
Alkaline Phosphatase 140 H U/L
(38-126)
Lipase 302 H U/L
(23-300)
01/24/24 17:42
01/24/24 17:42
Vital Signs
Initial and Last Documented VS:
Initial Vital Signs
Temp Pulse Resp BP Pulse Ox
99.9 F 117 18 165/109 97
01/24/24 17:31 01/24/24 17:31 01/24/24 17:31 01/24/24 17:31 01/24/24 17:31
Last Documented Vital Signs
Temp Pulse Resp BP Pulse Ox
99.9 F 117 18 165/109 96
01/24/24 17:31 01/24/24 17:31 01/24/24 17:31 01/24/24 17:31 01/25/24 01:57
MDM/Problems Addressed
Differential Diagnosis Includes:
GERD, gastritis, pancreatitis, gastroenteritis, atypical ACS
MDM/Problems Addressed:
43-year-old male present emergency department for evaluation of upper abdominal pain, nausea and vomiting. Has had history of similar. Did not take anything for symptoms prior to arrival. Has been to this emergency department frequently over the
last few months. Recent admission back at the beginning of December for hyperglycemia thought to be from a steroid injection. Labs were ordered from triage and there is no leukocytosis, glucose is 201 which is right around baseline, mild
transaminitis is not different than usual. Patient's lipase is 300. Possible chronic pancreatitis. Given his past medical history and body habitus will obtain CT imaging. Reassessment following.
Chronic conditions affecting care: DM and HTN
Acute Exacerbation and/or Progression of Chronic Illness: DM
*Radiology
Radiology exam reviewed: radiology read reviewed
*Pulse Oximetry
Patient hypoxic: no
*EKG
Interpreted by ED Provider?: Yes
Comparison EKG: no changes
Heart Rate: 112
Rate: tachycardiac
Rhythm: sinus
[place]: normal axis
Ischemia: no ischemia
*Critical Care Note
Total Time (30-74mins, 75-104mins- exclusive of procedures): Not Applicable
Data Reviewed
Review of Other/Old Records Reveals: Labs and Records
Patient Management
Escalation/DeEscalation of care consider admission/obs:
Patient CT scan shows mildly prominent loops of small bowel within the central abdomen possibly representing underlying enteritis. There is no bowel obstruction and patient has a normal appendix. Incidental findings of diverticulosis without
diverticulitis. Patient reevaluated and while symptoms are still mildly present they are improved since initial evaluation. Patient is without fevers, no leukocytosis and no acute surgical findings on CT. He is otherwise stable for discharge home
management. Prescriptions for Zofran and dicyclomine sent to pharmacy. Patient aware of return precautions.
ED Attending Note
-
Portions of this chart may have been created with voice recognition software.� Occasional wrong word or��sound alike� substitutions may have occurred due to the inherent limitations of voice recognition software.
Discharge Plan
Departure
Patient Disposition: Home (Routine Discharge)
Date of Disposition: 01/25/24
Time of Disposition: 02:07
Patient with high blood pressure during this ER visit?: Yes
Discharge Problem:
Enteritis
Instructions: Nausea and Vomiting, Adult (DC)
Prescriptions:
New
ondansetron 4 mg tablet,disintegrating
4 mg PO TIDPRN PRN (Reason: nausea/vomiting) Qty: 10 0RF
dicyclomine 20 mg tablet
20 mg PO BID PRN (Reason: abdominal pain) Qty: 10 0RF
No Action
metformin 1,000 MG tablet
1,000 mg PO BID@0800,1700 Qty: 60 0RF
meloxicam 15 mg Tablet
15 mg PO DAILY
insulin glargine [Lantus U-100 Insulin] 100 unit/mL Solution
30 unit SC BID
Patient Comments:
01/02/24-patient bought otc at [facility] [place]
Critic-Aid Clear AF(miconazol) 2 % Ointment
1 applic topical BID Qty: 1704 0RF
nicotine 14 mg/24 hr Patch 24 Hour
14 mg transdermal DAILY Qty: 30 0RF
acetaminophen 325 mg Tablet
650 mg PO Q4HPRN PRN (Reason: mild pain/BURGESS/temp> 100.4F) Qty: 0 0RF
oxycodone 5 mg Tablet
5 mg PO Q4HPRN PRN (Reason: moderate to severe pain) Qty: 20 0RF
lisinopril 20 MG tablet
40 mg PO DAILY Qty: 60 0RF
hydrochlorothiazide 12.5 mg Capsule
12.5 mg PO DAILY Qty: 30 0RF
repaglinide 1 mg Tablet
1 mg PO MEALS Qty: 90 0RF
Referrals:
Kadi Bland MD [Family Provider] -
Interventions
Interventions:
*Risk Screen - Suicide Last Done: 01/24/24 17:31
*General Assessment Last Done: 01/24/24 17:31
*Neglect/Abuse Screening Last Done: 01/24/24 17:31
ED- Fall Risk Assessment Last Done: 01/25/24 01:57
*ED COVID-19 Vaccine History Last Done: 01/24/24 17:31
OM-Rwgysu-Boxdimgdcg Assessment Last Done: 01/25/24 01:57
Discharge Date and Time
Print Language: LUXEMBOURGISH
[2024-01-25] MEDS: NSS 1000 IV (01:17)
[2024-01-25] MEDS: ZOFRAN 4 MG IV (01:18)
[2024-01-25] MEDS: MORPHINE SULFATE 4 MG IV (01:18)
[2024-01-25 02:00] VITALS: BP 147/87
== END 2024-01-25 02:33 | disposition home or self-care (01) ==
LOC: EMR 17:17
PROVIDERS: Emergency Medicine; EMERGENCY PHYSICIAN Student in an Organized Health Care Education/Training Program; FAMILY PHYSICIAN Student in an Organized Health Care Education/Training Program
DX: K52.9 Noninfective gastroenteritis and colitis, unspecified (principal); I10 Essential (primary) hypertension; E11.9 Type 2 diabetes mellitus without complications; F17.200 Nicotine dependence, unspecified, uncomplicated; E78.00 Pure hypercholesterolemia, unspecified; Z90.49 Acquired absence of other specified parts of digestive tract
CPT/HCPCS: 99285; 96374; 96375; 96361; 74177; 80053; 83690; 84484; 85025; 93005; Q9967

== ENCOUNTER 2024-02-23 05:53 | Emergency (ER) | payer OTHER, SELFPAY ==
[2024-02-23] VITALS (7 sets, daily range): BP systolic 139–187; BP diastolic 80–110; BMI 50.5
--- NOTE | 2024-02-23 06:19 | ED.GENMED ---
History of Present Illness
General
Chief Complaint: Abdominal Pain
Source: patient
Exam Limitations: none
Time Seen by Provider: 02/23/24 06:07
Travel History
Have you had any contact with someone who has COVID-19?: No
Do you have any symptoms of coronavirus? Fever > 100 degrees, chills, cough, shortness of breath, sore throat, loss of taste or smell, muscle aches, or headache?: No
History of Present Illness
History of Present Illness:
43-year-old male started with left upper quadrant/left lower chest pain yesterday. Thinks it started when he twisted suddenly after losing his balance. Pain is somewhat worse with breathing but also worse with twisting turning coughing or any
movement. No fever no shortness of breath no nausea or vomiting. No urinary symptoms. Patient had a history of a recent enteritis but that pain was on the other side of the abdomen and has resolved. This feels different.
Past History
Past History
ED Past Medical History: HTN, Hypercholesterolemia, IDDM, Psychiatric (Depression) and Other (Abscess, Pancreatitis)
ED Past Surgical History: Cholecystectomy, Orthopedic and Other (Previous abscess drainage)
Social History
Tobacco: Smoker
Alcohol: Occasional
Drug: None
Personal: Single
Living: with family
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
Family History
Family History: Diabetes; Negative CAD
Review of Systems
Review of Systems
All Other Systems: Not applicable
Constitutional: Denies fever
Respiratory: Denies cough or hemoptysis
ABD/GI: Denies vomiting or diarrhea
Phy Exam
Physical Exam
Physical Exam:
GENERAL: Alert and oriented. Nontoxic but appears uncomfortable with movement. The active sitting up clearly causes increased pain. Patient holding his left hand to his left lower anterior chest and upper abdomen. Patient ambulated well to his
bed
EYE: Orbits normal.
NECK: Supple, no significant adenopathy.
ENT: Pharynx without erythema
CARDIAC: Regular rate and rhythm without any obvious murmurs. Significant tenderness left anterior lower chest wall. No crepitus.
LUNGS: Clear breath sounds,normal
ABDOMEN: Soft, significant elevated BMI. Tenderness left upper quadrant. No rebound or guarding no mass or hernia.
NEUROLOGICAL: Alert and oriented , grossly non-focal
SKIN: Warm and dry, chronic healed papular appearance to the abdominal wall with a slight area of erythema laterally along the chest wall. This area is small with no fluctuance or abscess at this time. No vessel
MUSCULOSKELETAL: No edema,no deformity.Good color
PSYCH: Normal and appropriate interaction.
Course
Orders/Labs/Results
Orders:
Orders
02/23/24 06:14
Electrocardiogram (*1) Stat
Reason for Study: Abdominal Pain
CT Pe/abd/pel W Urgent
Reason For Exam: Left upper quadrant left flank pain
EKG- Treatment ONCE
IV Insert/Care/Rem.- Treatment PRN
0.9% Sodium Chloride 500 ml [Nss] 500 ml IV BOLUS
Ketorolac [Toradol] 30 mg IV NOW STA
02/23/24 06:16
HYDROmorphone [Dilaudid] 0.5 mg IV NOW STA
02/23/24 06:30
Complete Blood Count/With Diff Urgent
Comprehensive Metabolic Panel Urgent
D-Dimer Urgent
Lipase Urgent
02/23/24 08:22
HYDROmorphone [Dilaudid] 0.25 mg IV NOW STA
Abnormal Lab Results
02/23/24
06:30
MPV 11.5 H fL
(7.4-10.4)
D-Dimer 0.51 H ug/mlFEU
(0.00-0.50)
Creatinine 0.4 L mg/dL
(0.7-1.3)
Glucose 368 H mg/dl
(70-99)
AST 68 H U/L
(17-59)
ALT 93 H U/L
(0-50)
Alkaline Phosphatase 185 H U/L
(38-126)
Lipase 751 H U/L
(23-300)
02/23/24 06:30
02/23/24 06:30
Vital Signs
Initial and Last Documented VS:
Initial Vital Signs
Temp Pulse Resp BP Pulse Ox
97.7 F 95 28 187/110 98
02/23/24 05:57 02/23/24 05:57 02/23/24 05:57 02/23/24 05:57 02/23/24 05:57
Last Documented Vital Signs
Temp Pulse Resp BP Pulse Ox
97.7 F 78 20 162/80 98
02/23/24 05:57 02/23/24 09:21 02/23/24 09:21 02/23/24 09:21 02/23/24 09:21
MDM/Problems Addressed
Differential Diagnosis Includes:
Left lower anterior chest pain/left upper quadrant pain. Clinically this is very musculoskeletal in nature. Significant worsening pain with palpation along the rib but also some tenderness along the left upper quadrant of the abdomen. No
crepitus. Very positional in nature. The active sitting up clearly cause increased pain. Differential would include musculoskeletal, costochondritis, pleurisy. Highly doubt pulmonary emboli. Kidney stone or splenic issue would be in the
differential although unlikely
*Radiology
Radiology exam reviewed: radiology read reviewed (No acute findings on [place] CT )
*Pulse Oximetry
Patient hypoxic: no
*EKG
Interpreted by ED Provider?: Yes
Comparison EKG: no changes
Heart Rate: 81
Rate: normal
Rhythm: sinus
[place]: normal axis
Interval: normal interval
QRS Pattern: right bundle branch block (inc)
Ischemia: no ischemia
*Critical Care Note
Total Time (30-74mins, 75-104mins- exclusive of procedures): Not Applicable
Data Reviewed
Review of Other/Old Records Reveals: Labs, Records, Radiology Studies, Testing and Other (ED reports)
Update Note
Update Note:
Patient is remained stable. Patient clearly states without any prodding, the pain is worse when he twists or turns. Patient states he felt a click in his rib area when he did this twisting motion. Clinically this is very musculoskeletal in
nature. He does have an elevated blood sugar but bicarb is normal and clinically not in DKA. Clearly this is not a cardiac issue. His lipase is elevated but has been mildly elevated in the past. There is no pancreatitis by CT and his symptoms
clinically are very musculoskeletal. However with the hyperglycemia elevated lipase and significant symptomatic pain, patient was advised to stay for observation pain management and to see if this progresses into anything more. However patient
refuses to stay and wants to go home. He is aware of the risk of a progressive pancreatic issue hyperglycemic issue etc.
ED Attending Note
-
Portions of this chart may have been created with voice recognition software.� Occasional wrong word or��sound alike� substitutions may have occurred due to the inherent limitations of voice recognition software.
Discharge Plan
Departure
Patient Disposition: Home (Routine Discharge)
Date of Disposition: 02/23/24
Time of Disposition: 08:11
Patient with high blood pressure during this ER visit?: Yes
Discharge Problem:
Left abdominal/chest pain, Likely musculoskeletal, Hyperglycemia, Elevated lipase, Possible cirrhosis
Instructions: High Blood Sugar, Adult ED, Abdominal Pain, BLOOD PRESSURE
Prescriptions:
New
hydrocodone-acetaminophen 5-300 mg tablet
1 tab PO Q6H PRN (Reason: pain) Qty: 10 0RF
No Action
metformin 1,000 MG tablet
1,000 mg PO BID@0800,1700 Qty: 60 0RF
meloxicam 15 mg Tablet
15 mg PO DAILY
insulin glargine [Lantus U-100 Insulin] 100 unit/mL Solution
30 unit SC BID
Patient Comments:
01/02/24-patient bought otc at [facility]
Critic-Aid Clear AF(miconazol) 2 % Ointment
1 applic topical BID Qty: 1704 0RF
nicotine 14 mg/24 hr Patch 24 Hour
14 mg transdermal DAILY Qty: 30 0RF
acetaminophen 325 mg Tablet
650 mg PO Q4HPRN PRN (Reason: mild pain/BURGESS/temp> 100.4F) Qty: 0 0RF
oxycodone 5 mg Tablet
5 mg PO Q4HPRN PRN (Reason: moderate to severe pain) Qty: 20 0RF
lisinopril 20 MG tablet
40 mg PO DAILY Qty: 60 0RF
hydrochlorothiazide 12.5 mg Capsule
12.5 mg PO DAILY Qty: 30 0RF
repaglinide 1 mg Tablet
1 mg PO MEALS Qty: 90 0RF
ondansetron 4 mg tablet,disintegrating
4 mg PO TIDPRN PRN (Reason: nausea/vomiting) Qty: 10 0RF
dicyclomine 20 mg tablet
20 mg PO BID PRN (Reason: abdominal pain) Qty: 10 0RF
Referrals:
Kadi Bland MD [Family Provider] - Follow up in 2-3 days
Activity Restrictions/Additional Instructions:
Your prescription was sent to your pharmacy
Watch your blood sugars closely. Stay well-hydrated.
Close follow-up with your physician
Your lipase was elevated which is a nonspecific finding. This should be repeated in the next week.
As we discussed, I feel it would be best if you stayed in the hospital for pain management and further care of your lipase and blood sugar. Understand this could lead to a serious issue.
If you change your mind about admission please return immediately for reevaluation. Also return if there is any progression of symptoms
Your CAT scan did show some possible cirrhosis of your liver. This is a chronic issue and does not explain your current symptoms today. This should be followed up with your primary physician
Interventions
Interventions:
*Risk Screen - Suicide Last Done: 02/23/24 05:57
*General Assessment Last Done: 02/23/24 05:57
*Neglect/Abuse Screening Last Done: 02/23/24 05:57
ED- Fall Risk Assessment Last Done: 02/23/24 05:57
*ED COVID-19 Vaccine History Last Done: 02/23/24 05:57
*Nursing Disposition Last Done: 02/23/24 09:41
YB-Iiuvnw-Ncdvsaeryy Assessment Last Done: 02/23/24 06:05
Discharge Date and Time
Discharge Date/Time: 02/23/24 09:41
Print Language: FINNISH
[2024-02-23] MEDS: DILAUDID 0.5 MG IV (06:38)
[2024-02-23] MEDS: NSS 500 IV (06:38)
[2024-02-23] MEDS: TORADOL 30 MG IV (06:38)
[2024-02-23 06:39] LABS: % Basophils 0.3 % (0-2); % Immature Granulocytes 0.4 % (0-0.5); % Monocytes 6.6 % (1.7-9.3); % Neutrophils 58.7 % (42.2-75.2); Absolute Eosinophils 0.2 10^3/uL (0-0.7); Absolute Monocytes 0.6 10^3/uL (0.1-0.6); Absolute Neutrophils 5.4 10^3/uL (1.4-6.5); Hematocrit 43.8 % (39.0-52.0); Mean Corp Hgb Conc. 34.2 g/dL (33.0-37.0); Mean Corpuscular Hgb 30.4 pg (27.0-31.0); Mean Corpuscular Volume 88.7 fL (80.0-94.0); Mean Platelet Volume 11.5 fL (7.4-10.4); Nucleated Red Blood Cells % 0 % (-); Platelet Count 154 10^3/uL (130-400); Red Blood Cell Count 4.94 10^6/uL (4.70-6.10); Red Cell Dist. Width 13.7 % (11.5-14.5); White Blood Cell Count 9.2 10^3/uL (4.8-10.8)
[2024-02-23 07:00] LABS: ALT (SGPT) 93 U/L (0-50); AST (SGOT) 68 U/L (17-59); Albumin 3.6 g/dl (3.5-5.0); Alkaline Phosphatase 185 U/L (38-126); Blood Urea Nitrogen 15 mg/dl (9-20); Calcium 8.9 mg/dl (8.4-10.2); Carbon Dioxide 26 mmol/L (22-30); Chloride 103 mmol/L (98-107); Estimated Creatinine Clearance > 125 ml/min; Glucose 368 mg/dl (70-99); Lipase 751 U/L (23-300); Sodium 136 mmol/L (135-145); Total Bilirubin 0.4 mg/dl (0.2-1.3); Total Protein 6.7 g/dl (6.3-8.2); eGFR > 60.00
[2024-02-23 07:07] LABS: D-Dimer 0.51 ug/mlFEU (0.00-0.50)
[2024-02-23] MEDS: DILAUDID 0.25 MG IV (08:37)
== END 2024-02-23 09:41 | disposition home or self-care (01) ==
LOC: EMR 05:53
PROVIDERS: EMERGENCY PHYSICIAN Emergency Medicine; FAMILY PHYSICIAN Student in an Organized Health Care Education/Training Program
DX: R07.89 Other chest pain (principal); R10.9 Unspecified abdominal pain; R74.8 Abnormal levels of other serum enzymes; E11.65 Type 2 diabetes mellitus with hyperglycemia; I10 Essential (primary) hypertension; F17.200 Nicotine dependence, unspecified, uncomplicated
CPT/HCPCS: 99285; 96374; 96375; 96361 ×2; 96376; 71275; 74177; 80053; 83690; 85025; 85379; 93005; Q9967

== ENCOUNTER 2024-02-24 11:18 | Emergency (ER) | payer OTHER, SELFPAY ==
[2024-02-24 11:28] VITALS: BP 197/97
--- NOTE | 2024-02-24 12:53 | ED.GENMED ---
History of Present Illness
General
Chief Complaint: Abdominal Pain
Source: patient
Time Seen by Provider: 02/24/24 12:21
Travel History
Have you had any contact with someone who has COVID-19?: No
Do you have any symptoms of coronavirus? Fever > 100 degrees, chills, cough, shortness of breath, sore throat, loss of taste or smell, muscle aches, or headache?: No
History of Present Illness
History of Present Illness:
This patient is a 43-year-old male who says he was feeling his usual self until Sunday morning, when he noted pain in the left upper quadrant/epigastric area that very much feels like a pulled muscle. He recalls helping his mom forklift supervisor a hose
Sunday evening and because he has a 'bad knee' he had to bend and twist in an awkward position and heard a '' in this area. Since that time, he complains of continuous persistent discomfort worse with certain movements. He denies associated
nausea, vomiting, anorexia, fever, chills, chest pain. His bowel movements are normal without blood. He did take Pepto last week and noted his stools were black then but no further black stools. Patient was seen in the emergency department
yesterday and had extensive workup including CT and labs. He had a nonspecific lipase elevation, hyperglycemia, and continued pain. He declined admission at that time. He was sent home with a prescription for Percocet and states that is not
helping him. Patient denies back pain, dyspnea, or other complaints.
Past History
Past History
ED Past Medical History: HTN, Hypercholesterolemia, IDDM, Psychiatric (Depression) and Other (Abscess, Pancreatitis)
ED Past Surgical History: Cholecystectomy, Orthopedic and Other (Previous abscess drainage)
Social History
Tobacco: Smoker
Alcohol: Occasional
Drug: None
Personal: Single
Living: with family
Employment: Not employed ([employer])
Family History
Family History: Diabetes; Negative CAD
Phy Exam
Physical Exam
Physical Exam:
GENERAL: Alert , in no apparent distress, obese
EYE: pupils equal and reactive
NECK: Supple, no significant adenopathy.
ENT: o/p clr, mmm.
CARDIAC: Regular rate and rhythm .
LUNGS: Clear breath sounds bilaterally, no acute respiratory distress, no wheezes/rales/rhonchi
ABDOMEN: Soft, mild epigastric and left upper quadrant tenderness, no r/g, no cvat
NEUROLOGICAL: Alert and oriented, no focal neuro deficits
SKIN: Warm and dry, skin intact.
MUSCULOSKELETAL: No edema, well perfused.
PSYCH: Normal and appropriate interaction.
Course
Orders/Labs/Results
Orders:
Orders
02/24/24 12:50
Ketorolac [Toradol] 15 mg IV NOW STA
02/24/24 13:05
Complete Blood Count/No Diff Urgent
Comprehensive Metabolic Panel Urgent
Lipase Urgent
Urinalysis Reflex To Culture Urgent
Date Specimen was Collected: 02/24/24
Time Specimen was Collected: 12:56
Abnormal Lab Results
02/24/24
13:05
MPV 11.1 H fL
(7.4-10.4)
Creatinine 0.4 L mg/dL
(0.7-1.3)
Glucose 241 H mg/dl
(70-99)
AST 87 H U/L
(17-59)
ALT 117 H U/L
(0-50)
Alkaline Phosphatase 129 H U/L
(38-126)
Lipase 330 H U/L
(23-300)
Urine Glucose 3+ A
(Negative)
02/24/24 13:05
02/24/24 13:05
Vital Signs
Initial and Last Documented VS:
Initial Vital Signs
Temp Pulse Resp BP Pulse Ox
99.2 F 90 22 197/97 99
02/24/24 11:28 02/24/24 11:28 02/24/24 11:28 02/24/24 11:28 02/24/24 11:28
Last Documented Vital Signs
Temp Pulse Resp BP Pulse Ox
99.2 F 90 22 197/97 99
02/24/24 11:28 02/24/24 11:28 02/24/24 11:28 02/24/24 11:28 02/24/24 11:28
*Critical Care Note
Total Time (30-74mins, 75-104mins- exclusive of procedures): Not Applicable
Update Note
Update Note:
Patient presents to the Emergency Department with abdominal pain after twisting
Number and Complexity of Problems Addressed at the Encounter
� Chronic conditions affecting care:
� Acute Exacerbation and/or Progression of Chronic Illness:
� Differential Diagnosis includes: But not limited to rib fracture, muscle strain, etc. etc.
Amount and/or Complexity of Data to be Reviewed and Analyzed
� I performed an independent evaluation of and my interpretation is:
EKG:
CT:
Xrays:
Laboratory Studies: Mild hyperglycemia without associated acidosis, improvement from yesterday. Mild lipase elevation, also an improvement from yesterday. LFTs remain mildly elevated.
Other:
� Review of other/old records reveals: Patient was admitted December 2023 with hyperglycemia likely related to a steroid injection for the knees
� Clinical information was obtained by an independent historian:
� Prescriptions/Medications Considered but not given:
� Further testing considered but not performed:
Risk of Complications and/or Morbidity or Mortality of Patient Management
� Social determinants of health affecting care:
� Discussion with other providers (PCP, Hospitalists, Consultants, etc):
� Escalation of care including admission/observation vs risk of discharge considered: 1:52 PM patient remained stable here, continues to complain of discomfort which is very positional. I specifically made him aware of his
findings from both today and yesterday including the suggestion of cirrhosis on his CAT scan, abnormal LFTs, abnormal lipase, etc. Patient does not meet criteria for admission at this time. Discussed with patient importance of follow-up and
reasons to return to the emergency department. Strongly suspect musculoskeletal etiology for his discomfort, will prescribe short course of muscle relaxant. Patient will avoid alcohol and Tylenol
ED Attending Note
-
Portions of this chart may have been created with voice recognition software.� Occasional wrong word or��sound alike� substitutions may have occurred due to the inherent limitations of voice recognition software.
Discharge Plan
Departure
Patient Disposition: Home (Routine Discharge)
Date of Disposition: 02/24/24
Time of Disposition: 13:50
Patient with high blood pressure during this ER visit?: Yes
Condition: Good
Discharge Problem:
Morbid obesity with BMI of 45.0-49.9, adult, Acute hyperglycemia, Muscle strain
Instructions: Abdominal Muscle Strain ED, Abdominal Pain, BLOOD PRESSURE
Prescriptions:
New
cyclobenzaprine 10 mg tablet
10 mg PO TID PRN (Reason: pain) Qty: 7 0RF
No Action
metformin 1,000 MG tablet
1,000 mg PO BID@0800,1700 Qty: 60 0RF
meloxicam 15 mg Tablet
15 mg PO DAILY
insulin glargine [Lantus U-100 Insulin] 100 unit/mL Solution
30 unit SC BID
Patient Comments:
01/02/24-patient bought otc at [facility]
Critic-Aid Clear AF(miconazol) 2 % Ointment
1 applic topical BID Qty: 1704 0RF
nicotine 14 mg/24 hr Patch 24 Hour
14 mg transdermal DAILY Qty: 30 0RF
acetaminophen 325 mg Tablet
650 mg PO Q4HPRN PRN (Reason: mild pain/BURGESS/temp> 100.4F) Qty: 0 0RF
oxycodone 5 mg Tablet
5 mg PO Q4HPRN PRN (Reason: moderate to severe pain) Qty: 20 0RF
lisinopril 20 MG tablet
40 mg PO DAILY Qty: 60 0RF
hydrochlorothiazide 12.5 mg Capsule
12.5 mg PO DAILY Qty: 30 0RF
repaglinide 1 mg Tablet
1 mg PO MEALS Qty: 90 0RF
ondansetron 4 mg tablet,disintegrating
4 mg PO TIDPRN PRN (Reason: nausea/vomiting) Qty: 10 0RF
dicyclomine 20 mg tablet
20 mg PO BID PRN (Reason: abdominal pain) Qty: 10 0RF
hydrocodone-acetaminophen 5-300 mg tablet
1 tab PO Q6H PRN (Reason: pain) Qty: 10 0RF
Referrals:
Kadi Bland MD [Family Provider] - Follow up in 2-3 days
Makenzie Kiran MD [Active] - Next open appointment
Activity Restrictions/Additional Instructions:
IF YOU DEVELOP INCREASING NEW OR PERSISTENT PAIN, FEVER, TROUBLE BREATHING, VOMITING, BLEEDING, OR OTHER WORRISOME SIGNS, PLEASE RETURN TO THE ER IMMEDIATELY.
Interventions
Interventions:
*Risk Screen - Suicide Last Done: 02/24/24 12:53
*General Assessment Last Done: 02/24/24 12:53
*Neglect/Abuse Screening Last Done: 02/24/24 12:53
*ED COVID-19 Vaccine History Last Done: 02/24/24 12:53
Discharge Date and Time
Print Language: FAROESE
[2024-02-24 12:54] VITALS: BMI 50.6
[2024-02-24] MEDS: TORADOL 15 MG IV (13:05)
[2024-02-24 13:08] VITALS: BP 136/84
[2024-02-24 13:16] LABS: Urine Albumin Negative (Neg - Trace); Urine Bilirubin Negative (Negative); Urine Character Clear (Clear); Urine Color Yellow; Urine Glucose 3+ (Negative); Urine Ketone Negative (Negative); Urine Leukocyte Negative (Negative); Urine Nitrite Negative (Negative); Urine Occult Blood Negative (Negative); Urine Urobilinogen Negative (Neg - 1+)
[2024-02-24 13:25] LABS: Hematocrit 43.9 % (39.0-52.0); Hemoglobin 15.4 g/dL (13.0-18.0); Mean Corp Hgb Conc. 35.1 g/dL (33.0-37.0); Mean Corpuscular Hgb 30.6 pg (27.0-31.0); Mean Corpuscular Volume 87.1 fL (80.0-94.0); Mean Platelet Volume 11.1 fL (7.4-10.4); Platelet Count 167 10^3/uL (130-400); Red Blood Cell Count 5.04 10^6/uL (4.70-6.10); Red Cell Dist. Width 13.4 % (11.5-14.5); White Blood Cell Count 9.8 10^3/uL (4.8-10.8)
[2024-02-24 13:26] LABS: ALT (SGPT) 117 U/L (0-50); AST (SGOT) 87 U/L (17-59); Albumin 3.8 g/dl (3.5-5.0); Alkaline Phosphatase 129 U/L (38-126); Blood Urea Nitrogen 14 mg/dl (9-20); Calcium 9.1 mg/dl (8.4-10.2); Carbon Dioxide 29 mmol/L (22-30); Chloride 100 mmol/L (98-107); Estimated Creatinine Clearance > 125 ml/min; Glucose 241 mg/dl (70-99); Lipase 330 U/L (23-300); Sodium 136 mmol/L (135-145); Total Bilirubin 0.5 mg/dl (0.2-1.3); Total Protein 7.1 g/dl (6.3-8.2); eGFR > 60.00
[2024-02-24 14:00] VITALS: BP 153/89
[2024-02-24] MEDS: FLEXERIL 10 MG PO (14:05)
== END 2024-02-24 14:27 | disposition home or self-care (01) ==
LOC: EMR 11:18
PROVIDERS: EMERGENCY PHYSICIAN Emergency Medicine; FAMILY PHYSICIAN Student in an Organized Health Care Education/Training Program
DX: E11.65 Type 2 diabetes mellitus with hyperglycemia (principal); E66.01 Morbid (severe) obesity due to excess calories; Z68.42 Body mass index [BMI] 45.0-49.9, adult; S39.011A Strain of muscle, fascia and tendon of abdomen, initial encounter; X50.1XXA Overexertion from prolonged static or awkward postures, initial encounter; Y93.89 Activity, other specified; I10 Essential (primary) hypertension; E78.00 Pure hypercholesterolemia, unspecified; F32.A Depression, unspecified; F17.200 Nicotine dependence, unspecified, uncomplicated; Z90.49 Acquired absence of other specified parts of digestive tract; Z79.4 Long term (current) use of insulin; Z91.013 Allergy to seafood
CPT/HCPCS: 99284; 96374; 80053; 81003; 83690; 85027

== ENCOUNTER → 2024-02-28 14:20 | Outpatient (REF) | payer OTHER, SELFPAY | LOC: HWRAD 14:20 | PROVIDERS: ATTENDING PHYSICIAN Student in an Organized Health Care Education/Training Program | DX: R10.9 Unspecified abdominal pain (principal) | CPT/HCPCS: 71101 ==

== ENCOUNTER 2024-02-29 03:48 | Emergency (ER) | payer OTHER, SELFPAY ==
[2024-02-29 03:49] VITALS: BP 149/98
--- NOTE | 2024-02-29 04:22 | ED.GENMED ---
History of Present Illness
<ANISH Adames - Last Filed: 02/29/24 04:47>
General
Chief Complaint: Abdominal Pain
Source: patient and records
Time Seen by Provider: 02/29/24 04:21
Travel History
Have you had any contact with someone who has COVID-19?: No
Do you have any symptoms of coronavirus? Fever > 100 degrees, chills, cough, shortness of breath, sore throat, loss of taste or smell, muscle aches, or headache?: No
History of Present Illness
History of Present Illness:
43 year old male with hx of obesity, HTN, HLD, IDDM who presents with L costal pain and epigastric/RUQ pain that worsened tonight. Pt was seen here on 02/24/24 for his L costal pain. He recalls helping his mom upholsterer limousine and hearse a hose Sunday evening and
because he has a 'bad knee' he had to bend and twist in an awkward position and heard a 'pop' in this area. Since then, he complains of pain to the area with certain movements. He has pain with deep breathing. Pain radiates around to his spine. He
was discharged with cyclobenzaprine. States he took 2-3 doses of this but felt 'hungover' the next day and it did not help with the pain so he stopped taking it. Denies fever/chills, cough, sore throat, runny nose. He states he saw his PCP and got
an xray of the chest with ribs yesterday showing no findings to suggest recent left rib fracture or focal cortical bony destructive process; no pneumothorax, pleural effusion or mediastinal shift. Additionally, he reports pain in the RUQ/epigastric
region. States he intermittently has this pain, but it worsened tonight. Pain is a pressure-like pain that radiates to the back and to his R shoulder. He has hx of cholecystectomy. He reports associated nausea and 1-2 episodes of vomiting yesterday.
Denies urinary or bowel changes. Pt had CT abdomen performed on 02/23/24.
Past History
<ST RosangelaMD - Last Filed: 02/29/24 04:47>
Past History
ED Past Medical History: HTN, Hypercholesterolemia, IDDM, Psychiatric (Depression) and Other (Abscess, Pancreatitis)
ED Past Surgical History: Cholecystectomy, Orthopedic and Other (Previous abscess drainage)
Social History
Tobacco: Smoker
Alcohol: Occasional
Drug: None
Personal: Single
Living: with family
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
Family History
Family History: Diabetes; Negative CAD
Review of Systems
<RogerANISH Wilson - Last Filed: 02/29/24 04:47>
Review of Systems
Allergies reviewed?: Yes
All Other Systems: ROS reviewed and negative except as documented in HPI and ROS
Constitutional: Reports no symptoms
EENT: Reports no symptoms
Respiratory: Reports trouble breathing
Cardiac: Reports chest pain
ABD/GI: Reports abdominal pain, nausea and vomiting
: Reports no symptoms
Musculoskeletal: Reports no symptoms
Skin: Reports no symptoms
Neurological: Reports no symptoms
Endocrine: Reports no symptoms
Hematologic/Lymphatic: Reports no symptoms
Psychiatric: Reports no symptoms
Phy Exam
<RogerST KatieMD - Last Filed: 02/29/24 04:47>
General Physical Exam
General Presentation: mild distress
General age: appears stated age
General Skin: warm and dry
General Habitus: obese
General Mental: alert
General Hydration: appears well hydrated
Cardiovascular Exam
Cardiovascular Exam: regular rate/rhythm, no edema, no gallop and no murmur
Pulmonary Exam
Pulmonary Exam: lungs clear, no respiratory distress, no rales, no crackles, no rhonchi, no wheezing and no cough
Gastrointestinal Exam
Gastrointestinal Exam: other (exam limited due to body habitus, obese abdomen. Moderate tenderness to L costal/LUQ region, epigastric region)
Skin Exam
Skin Exam: normal color and warm/dry
Psychiatric Exam
Psychiatric Exam: normal mood/affect
Course
<ANISH Adames - Last Filed: 02/29/24 04:47>
Orders/Labs/Results
Orders:
Orders
02/29/24 04:46
Electrocardiogram (*1) Stat
Reason for Study: Abdominal Pain
EKG- Treatment ONCE
US Abdomen Complete/Upper Urgent
Comment:
Reason For Exam: UPPER ABD PAIN,S/P KAREN
02/29/24 04:53
Complete Blood Count/No Diff Urgent
Comprehensive Metabolic Panel Urgent
Lipase Urgent
02/29/24 05:00
Urinalysis Reflex To Culture Urgent
Date Specimen was Collected: 02/29/24
Time Specimen was Collected: 04:59
Abnormal Lab Results
02/29/24
04:53
MPV 11.6 H fL
(7.4-10.4)
Creatinine 0.4 L mg/dL
(0.7-1.3)
Glucose 314 H mg/dl
(70-99)
AST 63 H U/L
(17-59)
ALT 81 H U/L
(0-50)
Alkaline Phosphatase 133 H U/L
(38-126)
Lipase 395 H U/L
(23-300)
02/29/24 04:53
02/29/24 04:53
Vital Signs
Initial and Last Documented VS:
Initial Vital Signs
Temp Pulse Resp BP Pulse Ox
98.3 F 115 22 149/98 95
02/29/24 03:49 02/29/24 03:49 02/29/24 03:49 02/29/24 03:49 02/29/24 03:49
Last Documented Vital Signs
Temp Pulse Resp BP Pulse Ox
98.5 F 93 25 154/81 96
02/29/24 06:25 02/29/24 06:15 02/29/24 06:15 02/29/24 06:00 02/29/24 06:15
<Tamara Arteaga MD - Last Filed: 02/29/24 06:37>
Orders/Labs/Results
Orders:
Orders
02/29/24 04:46
Electrocardiogram (*1) Stat
Reason for Study: Abdominal Pain
EKG- Treatment ONCE
US Abdomen Complete/Upper Urgent
Comment:
Reason For Exam: UPPER ABD PAIN,S/P KAREN
02/29/24 04:53
Complete Blood Count/No Diff Urgent
Comprehensive Metabolic Panel Urgent
Lipase Urgent
02/29/24 05:00
Urinalysis Reflex To Culture Urgent
Date Specimen was Collected: 02/29/24
Time Specimen was Collected: 04:59
Abnormal Lab Results
02/29/24
04:53
MPV 11.6 H fL
(7.4-10.4)
Creatinine 0.4 L mg/dL
(0.7-1.3)
Glucose 314 H mg/dl
(70-99)
AST 63 H U/L
(17-59)
ALT 81 H U/L
(0-50)
Alkaline Phosphatase 133 H U/L
(38-126)
Lipase 395 H U/L
(23-300)
02/29/24 04:53
02/29/24 04:53
Vital Signs
Initial and Last Documented VS:
Initial Vital Signs
Temp Pulse Resp BP Pulse Ox
98.3 F 115 22 149/98 95
02/29/24 03:49 02/29/24 03:49 02/29/24 03:49 02/29/24 03:49 02/29/24 03:49
Last Documented Vital Signs
Temp Pulse Resp BP Pulse Ox
98.5 F 93 25 154/81 96
02/29/24 06:25 02/29/24 06:15 02/29/24 06:15 02/29/24 06:00 02/29/24 06:15
<ANISH Adames - Last Filed: 02/29/24 04:47>
MDM/Problems Addressed
Differential Diagnosis Includes:
rib fracture, muscle strain, hepatitis, GERD, cholangitis, choledocholithiasis
Chronic conditions affecting care: DM, HTN and Psychiatric illness
<ANISH Adames - Last Filed: 02/29/24 04:47>
*Critical Care Note
Total Time (30-74mins, 75-104mins- exclusive of procedures): Not Applicable
ED Attending Note
<ANISH Adames - Last Filed: 02/29/24 04:47>
-
Portions of this chart may have been created with voice recognition software.� Occasional wrong word or��sound alike� substitutions may have occurred due to the inherent limitations of voice recognition software.
<Tamara Arteaga MD - Last Filed: 02/29/24 06:37>
ED Attending Note
Patient seen and examined by attending physician: Yes
I performed the substantive portion of visit, reviewed & personally made and approve the management plan that is documented in note by myself or JEREMÍAS.: Yes
ED Attending Note:
43-year-old male presents emergency department with complaints of abdominal pain. He first describes pain in the left upper quadrant has been there about a week, noted when he was twisting his body to secure a hose and felt a 'pop'. He was seen
here in the emergency department had extensive workup, took muscle relaxants for short period of time, and then was transition to Ultram which provides partial relief of symptoms. However, he says the pain was starting to get worse tonight which
prompted his visit here. The pain is isolated to the left upper quadrant without radiation to the chest. He denies associated dyspnea, rash, swelling, fever, chills, lower abdominal pain. Patient also notes pain in the epigastric/right upper
quadrant area that sometimes will be in the back and right shoulder area as well. This has been going on for at least a month, and is generally unchanged. Patient states that about a month ago he did have nonbloody diarrhea, his bowel movements
are now normal. To me he notes occasional nausea but denies vomiting although he did report to the student that he had 1-2 episodes of vomiting yesterday. He is eating as usual. He notes that his hemoglobin A1c was elevated recently and his most
recent Accu-Chek at home was in the 300s a few days ago. On exam, GENERAL: Alert , in no apparent distress
EYE: pupils equal and reactive
NECK: Supple, no significant adenopathy.
ENT: o/p clr, mmm.
CARDIAC: Regular rate and rhythm .
LUNGS: Clear breath sounds bilaterally, no acute respiratory distress, no wheezes/rales/rhonchi
ABDOMEN: Soft, diffuse nonspecific upper tenderness, no r/g, no cvat
NEUROLOGICAL: Alert and oriented, no focal neuro deficits
SKIN: Warm and dry, skin intact.
MUSCULOSKELETAL: No edema, well perfused.
PSYCH: Normal and appropriate interaction.
Patient presents to the Emergency Department with ____abdominal pain
Number and Complexity of Problems Addressed at the Encounter
� Chronic conditions affecting care:
� Acute Exacerbation and/or Progression of Chronic Illness:
� Differential Diagnosis includes: But not limited to gastritis, muscular strain, retained gallstone, pancreatitis, etc. etc.
Amount and/or Complexity of Data to be Reviewed and Analyzed
� I performed an independent evaluation of and my interpretation is:
EKG:read by me, nsr, incomplete rbbb, no ischemia
CT:
Xrays:
Laboratory Studies:unchanged from prior (and pt aware). hyperglycemia without assoc acidosis
Other:us nad
� Review of other/old records reveals:
� Clinical information was obtained by an independent historian:
� Prescriptions/Medications Considered but not given:
� Further testing considered but not performed:
Risk of Complications and/or Morbidity or Mortality of Patient Management
� Social determinants of health affecting care:
� Discussion with other providers (PCP, Hospitalists, Consultants, etc):
� Escalation of care including admission/observation vs risk of discharge considered:634pm pt resting comfortably, eyes closed. abd remains nonspec ttp, no r/g. Unclear cause of subacute/chronic pain...w/u unremarkable here.
d/wpt import of fu and reasons to rted.
Discharge Plan
Departure
Patient Disposition: Home (Routine Discharge)
Date of Disposition: 02/29/24
Time of Disposition: 06:35
Patient with high blood pressure during this ER visit?: Yes
Condition: Good
Discharge Problem:
Abdominal pain
Instructions: Abdominal Pain, BLOOD PRESSURE
Prescriptions:
No Action
metformin 1,000 MG tablet
1,000 mg PO BID@0800,1700 Qty: 60 0RF
insulin glargine [Lantus U-100 Insulin] 100 unit/mL Solution
30 unit SC BID
Patient Comments:
01/02/24-patient bought otc at [facility]
nicotine 14 mg/24 hr Patch 24 Hour
14 mg transdermal DAILY Qty: 30 0RF
acetaminophen 325 mg Tablet
650 mg PO Q4HPRN PRN (Reason: mild pain/BURGESS/temp> 100.4F) Qty: 0 0RF
lisinopril 20 MG tablet
40 mg PO DAILY Qty: 60 0RF
hydrochlorothiazide 12.5 mg Capsule
12.5 mg PO DAILY Qty: 30 0RF
repaglinide 1 mg Tablet
1 mg PO MEALS Qty: 90 0RF
celecoxib [Celebrex] 100 mg Capsule
100 mg PO BID
Referrals:
Kadi Bland MD [Family Provider] - Tomorrow
Activity Restrictions/Additional Instructions:
PLEASE CONTACT YOUR DOCTOR TODAY FOR PROMPT FOLLOW UP. IF YOU DEVELOP FEVER, VOMITING, INCREASING/NEW PAIN, OR OTHER WORRISOME SIGNS, GO TO THE ER IMMEDIATELY!
Interventions
Interventions:
*Risk Screen - Suicide Last Done: 02/29/24 04:08
*General Assessment Last Done: 02/29/24 03:49
*Neglect/Abuse Screening Last Done: 02/29/24 04:08
ED- Fall Risk Assessment Last Done: 02/29/24 04:08
*ED COVID-19 Vaccine History Last Done: 02/29/24 04:08
PQ-Jsosrl-Mnfatxvyle Assessment Last Done: 02/29/24 04:08
Discharge Date and Time
Print Language: AMHARIC
[2024-02-29 05:41] LABS: ALT (SGPT) 81 U/L (0-50); AST (SGOT) 63 U/L (17-59); Albumin 3.5 g/dl (3.5-5.0); Alkaline Phosphatase 133 U/L (38-126); Blood Urea Nitrogen 14 mg/dl (9-20); Carbon Dioxide 27 mmol/L (22-30); Chloride 100 mmol/L (98-107); Glucose 314 mg/dl (70-99); Hematocrit 41.2 % (39.0-52.0); Hemoglobin 14.2 g/dL (13.0-18.0); Lipase 395 U/L (23-300); Mean Corp Hgb Conc. 34.5 g/dL (33.0-37.0); Mean Corpuscular Hgb 30.2 pg (27.0-31.0); Mean Corpuscular Volume 87.7 fL (80.0-94.0); Mean Platelet Volume 11.6 fL (7.4-10.4); Platelet Count 194 10^3/uL (130-400); Potassium 3.9 mmol/L (3.5-5.1); Red Cell Dist. Width 13.7 % (11.5-14.5); Sodium 137 mmol/L (135-145); Total Bilirubin 0.6 mg/dl (0.2-1.3); Total Protein 6.5 g/dl (6.3-8.2); White Blood Cell Count 10.5 10^3/uL (4.8-10.8); eGFR > 60.00
[2024-02-29 05:50] VITALS: BP 147/82
[2024-02-29 06:00] VITALS: BP 154/81
[2024-02-29 06:09] LABS: Urine Albumin Negative (Neg - Trace); Urine Bilirubin Negative (Negative); Urine Character Clear (Clear); Urine Color Yellow; Urine Glucose 3+ (Negative); Urine Ketone Trace (Negative); Urine Leukocyte Negative (Negative); Urine Nitrite Negative (Negative); Urine Occult Blood Negative (Negative); Urine Urobilinogen Negative (Neg - 1+)
[2024-02-29] MEDS: ULTRAM 50 MG PO (06:56)
== END 2024-02-29 06:55 | disposition home or self-care (01) ==
LOC: EMR 03:48
PROVIDERS: EMERGENCY PHYSICIAN Emergency Medicine; FAMILY PHYSICIAN Student in an Organized Health Care Education/Training Program
DX: R10.11 Right upper quadrant pain (principal); I10 Essential (primary) hypertension; E78.00 Pure hypercholesterolemia, unspecified; E11.9 Type 2 diabetes mellitus without complications; F17.200 Nicotine dependence, unspecified, uncomplicated
CPT/HCPCS: 99284; 76700; 80053; 81003; 83690; 85027; 93005

== ENCOUNTER 2024-05-17 07:15 | Emergency (ER) | payer OTHER, SELFPAY ==
[2024-05-17 07:18] VITALS: BP 150/95
[2024-05-17 08:04] VITALS: BMI 48.3
[2024-05-17 08:09] VITALS: BP 148/93
[2024-05-17] MEDS: ROXICODONE 5 MG PO (08:11)
--- NOTE | 2024-05-17 09:47 | ED.GENMED ---
History of Present Illness
General
Chief Complaint: Skin Problem
Source: patient
Time Seen by Provider: 05/17/24 07:50
History of Present Illness
History of Present Illness:
43-year-old male presents emergency room complaining of an abscess on his right lower abdomen. Patient has a history of hidradenitis suppurativa and so frequently has abscesses. He has not had a fever. He has been using warm compresses.
Sometimes these will drain spontaneously but this 1 has not but continues to feel more pain. No nausea, vomiting, diarrhea.
Past History
Past History
ED Past Medical History: HTN, Hypercholesterolemia, IDDM, Psychiatric (Depression) and Other (Abscess, Pancreatitis)
ED Past Surgical History: Cholecystectomy, Orthopedic and Other (Previous abscess drainage)
Social History
Tobacco: Smoker
Alcohol: Occasional
Drug: None
Personal: Single
Living: with family
Employment: Not employed ([employer])
Family History
Family History: Diabetes; Negative CAD
Phy Exam
Physical Exam
Physical Exam:
General: Awake, Alert, Oriented X3. Patient peers uncomfortable
Vitals: unremarkable
Head: Atraumatic
Eyes: Pupils equal, EOMI
Throat: Airway intact, no exudates
Neck: Trachea midline
Lungs: Clear and equal b/l
Heart: Regular rate, no murmurs
Abd: Soft, 5 cm x 3 cm area of erythema and fluctuance noted right lower abdomen, No pulsatile mass
Skin: Warm, dry, no rash
Extremities: pulses equal b/l, no edema
Course
Orders/Labs/Results
Orders:
Orders
05/17/24 08:04
Oxycodone [Roxicodone] 5 mg PO NOW STA
Vital Signs
Initial and Last Documented VS:
Initial Vital Signs
Temp Pulse Resp BP Pulse Ox
97.9 F 93 20 150/95 98
05/17/24 07:18 05/17/24 07:18 05/17/24 07:18 05/17/24 07:18 05/17/24 07:18
Last Documented Vital Signs
Temp Pulse Resp BP Pulse Ox
97.9 F 85 16 148/93 99
05/17/24 07:18 05/17/24 08:09 05/17/24 08:09 05/17/24 08:09 05/17/24 08:09
Procedures
Incision/Drainage/Joint Aspiration
Right Abdomen:
Anethesia: 1% Lidocaine with Epi
Preparation: cleaned with Betadine
Type of procedure: incise and drain
Nature of site: abscess
Description of abscess: greater than 3cm
Loculations broken up: Yes
How much fluid was obtained?: small amount
Fluid description: cloudy
Treatment: left open for drainage
MDM/Problems Addressed
Differential Diagnosis Includes:
Seroma, abscess, cellulitis
MDM/Problems Addressed:
Patient frequently has abscesses due to hidradenitis suppurativa. Patient here primary for an abscess on the abdominal wall. This was incised and drained. Patient has a couple other small lesions including right earlobe.
*Pulse Oximetry
Patient hypoxic: no
*Critical Care Note
Total Time (30-74mins, 75-104mins- exclusive of procedures): Not Applicable
ED Attending Note
-
Portions of this chart may have been created with voice recognition software.� Occasional wrong word or��sound alike� substitutions may have occurred due to the inherent limitations of voice recognition software.
Discharge Plan
Departure
Patient Disposition: Home (Routine Discharge)
Date of Disposition: 05/17/24
Time of Disposition: 09:47
Patient with high blood pressure during this ER visit?: Yes
Condition: Good
Discharge Problem:
Cutaneous abscess of abdominal wall
Instructions: BLOOD PRESSURE, Skin Abscess
Prescriptions:
New
sulfamethoxazole-trimethoprim [Bactrim DS] 800-160 mg tablet
1 tab PO BID Qty: 10 0RF
oxycodone 5 mg tablet
5 mg PO Q6H PRN (Reason: Pain) Qty: 6 0RF
No Action
metformin 1,000 MG tablet
1,000 mg PO BID@0800,1700 Qty: 60 0RF
acetaminophen 325 mg Tablet
650 mg PO Q4HPRN PRN (Reason: mild pain/BURGESS/temp> 100.4F) Qty: 0 0RF
lisinopril 20 MG tablet
40 mg PO DAILY Qty: 60 0RF
hydrochlorothiazide 12.5 mg Capsule
12.5 mg PO DAILY Qty: 30 0RF
repaglinide 1 mg Tablet
1 mg PO MEALS Qty: 90 0RF
celecoxib [Celebrex] 100 mg Capsule
100 mg PO BID
Wegovy 0.5 mg/0.5 mL Pen Injector
0.5 mg SC QWEEK
Referrals:
Kadi Bland MD [Primary Care Provider] -
Interventions
Interventions:
*Risk Screen - Suicide Last Done: 05/17/24 08:04
*General Assessment Last Done: 05/17/24 08:04
*Neglect/Abuse Screening Last Done: 05/17/24 08:04
ED- Fall Risk Assessment Last Done: 05/17/24 08:04
*ED COVID-19 Vaccine History Last Done: 05/17/24 08:04
*Nursing Disposition Last Done: 05/17/24 10:05
ED-Skin Assessment Last Done: 05/17/24 08:15
Discharge Date and Time
Discharge Date/Time: 05/17/24 10:06
Print Language: MOSOTHO
== END 2024-05-17 10:06 | disposition home or self-care (01) ==
LOC: EMR 07:15
PROVIDERS: EMERGENCY PHYSICIAN Emergency Medicine; PRIMARYCARE PHYSICIAN Student in an Organized Health Care Education/Training Program
DX: L02.211 Cutaneous abscess of abdominal wall (principal); I10 Essential (primary) hypertension; E78.00 Pure hypercholesterolemia, unspecified; E11.9 Type 2 diabetes mellitus without complications; F17.200 Nicotine dependence, unspecified, uncomplicated; Z83.3 Family history of diabetes mellitus; Z90.49 Acquired absence of other specified parts of digestive tract
CPT/HCPCS: 99282; 10060

== ENCOUNTER 2024-06-29 16:45 | Emergency (ER) | payer OTHER, SELFPAY ==
[2024-06-29 16:49] VITALS: BP 153/97
--- NOTE | 2024-06-29 18:01 | ED.GENMED ---
History of Present Illness
<Lio Brown MD, Resident - Last Filed: 06/29/24 19:33>
General
Chief Complaint: Back Pain
Source: patient
Time Seen by Provider: 06/29/24 17:29
Travel History
Have you traveled to any high risk areas for coronavirus over the past 14 days?: No
Have you had any contact with someone who has COVID-19?: No
Do you have any symptoms of coronavirus? Fever > 100 degrees, chills, cough, shortness of breath, sore throat, loss of taste or smell, muscle aches, or headache?: No
History of Present Illness
History of Present Illness:
Lalit Lamb, 43-year-old male with type II diabetes mellitus, morbid obesity and known lumbar slipped disc, has had low back pain for the past few days. Patient denies any trauma and states that the pain came out of blue. He has a history of slipped
disc, for which he was followed by pain management years ago. The pain went away after a few months of medications, and has not bothered him since then. He is also undergoing financial and personal struggles; his has advanced liver failure. He
works part-time as a volunteer services coordinator and his work involves standing for prolonged periods of time; he has not been able to work since this came on. He is the sole provider for the family and is worried about losing his job. Tearful in the ED today. He has
tried acetaminophen and celecoxib but has not helped much.
Past History
<Lio Brown MD, Resident - Last Filed: 06/29/24 19:33>
Past History
ED Past Medical History: HTN, Hypercholesterolemia, IDDM, Psychiatric (Depression) and Other (history of pancreatitis)
ED Past Surgical History: Cholecystectomy, Orthopedic and Other (Previous abscess drainage)
Social History
Tobacco: Smoker
Alcohol: Occasional
Drug: None
Personal: Single
Living: with family
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
Family History
Family History: Diabetes; Negative CAD
Review of Systems
<Lio Brown MD, Resident - Last Filed: 06/29/24 19:33>
Review of Systems
All Other Systems: Not applicable
Constitutional: Reports no symptoms
EENT: Reports no symptoms
Respiratory: Reports no symptoms
Cardiac: Reports no symptoms
ABD/GI: Reports no symptoms
: Reports no symptoms
Musculoskeletal: Reports back pain
Skin: Reports no symptoms
Neurological: Reports no symptoms
Endocrine: Reports no symptoms
Hematologic/Lymphatic: Reports no symptoms
Psychiatric: Reports no symptoms
Phy Exam
<Lio Brown MD, Resident - Last Filed: 06/29/24 19:33>
General Physical Exam
General Presentation: well appearing and no apparent distress
General Skin: warm and dry
General Habitus: normal
General Mental: alert
General Hydration: appears well hydrated
ENT Exam
ENT Exam: EOMI, pharynx normal, neck supple and normocephalic
Eye Exam
Eye Exam: PERRL, cornea clear and conjunctiva normal
Cardiovascular Exam
Cardiovascular Exam: regular rate/rhythm, no edema, no murmur and normal peripheral pulses
Pulmonary Exam
Pulmonary Exam: lungs clear, no respiratory distress, no rales, no crackles, no rhonchi, no stridor, no wheezing and no cough
Gastrointestinal Exam
Gastrointestinal Exam: normal bowel sounds, non tender, soft, no organomegaly, no pulsatile mass and non distended
Neurological Exam
Neurological Exam: alert, oriented x3, no motor deficits and speech normal
Musculoskeletal Exam
Musculoskeletal Exam: back pain, no edema and back tenderness
Skin Exam
Skin Exam: normal color, warm/dry, no rash and no petechia
Psychiatric Exam
Psychiatric Exam: normal mood/affect
Course
<Lio Brown MD, Resident - Last Filed: 06/29/24 19:33>
Orders/Labs/Results
Orders:
Orders
06/29/24 17:42
CR Lumbar Spine Comp Min 4 Vw* Urgent
Comment:
Reason For Exam: acute low back pain
06/29/24 18:28
Tramadol HCl [Ultram] 50 mg PO NOW STA
Vital Signs
Initial and Last Documented VS:
Initial Vital Signs
Temp Pulse Resp BP Pulse Ox
99.1 F 110 18 153/97 99
06/29/24 16:49 06/29/24 16:49 06/29/24 16:49 06/29/24 16:49 06/29/24 16:49
Last Documented Vital Signs
Temp Pulse Resp BP Pulse Ox
99.1 F 82 16 148/74 98
06/29/24 16:49 06/29/24 19:33 06/29/24 19:33 06/29/24 19:33 06/29/24 19:33
<Damian Pina, DO - Last Filed: 06/29/24 19:54>
Orders/Labs/Results
Orders:
Orders
06/29/24 17:42
CR Lumbar Spine Comp Min 4 Vw* Urgent
Comment:
Reason For Exam: acute low back pain
06/29/24 18:28
Tramadol HCl [Ultram] 50 mg PO NOW STA
Vital Signs
Initial and Last Documented VS:
Initial Vital Signs
Temp Pulse Resp BP Pulse Ox
99.1 F 110 18 153/97 99
06/29/24 16:49 06/29/24 16:49 06/29/24 16:49 06/29/24 16:49 06/29/24 16:49
Last Documented Vital Signs
Temp Pulse Resp BP Pulse Ox
99.1 F 82 16 148/74 98
06/29/24 16:49 06/29/24 19:33 06/29/24 19:33 06/29/24 19:33 06/29/24 19:33
<Damian Pina DO - Last Filed: 06/29/24 19:54>
MDM/Problems Addressed
MDM/Problems Addressed:
Low back pain, lumbar radiculopathy, obesity
<Damian Pina DO - Last Filed: 06/29/24 19:54>
*Radiology
Radiology exam reviewed: all reviewed NAD by ED Provider
*Pulse Oximetry
Patient hypoxic: no
*Critical Care Note
Total Time (30-74mins, 75-104mins- exclusive of procedures): Not Applicable
Data Reviewed
Source: patient
Prescriptions/Medications Considered But Not Given:
Consider steroids but in light of diabetes we will hold off
<Damian Pina DO - Last Filed: 06/29/24 19:54>
Patient Management
Escalation/DeEscalation of care consider admission/obs:
Already seeing pain management and will recommend to follow-up. Agreed to #5 tramadol. Patient will follow-up with pain management
ED Attending Note
<Lio Brown MD, Resident - Last Filed: 06/29/24 19:33>
-
Portions of this chart may have been created with voice recognition software.� Occasional wrong word or��sound alike� substitutions may have occurred due to the inherent limitations of voice recognition software.
<Damian Pina DO - Last Filed: 06/29/24 19:54>
ED Attending Note
Patient seen and examined by attending physician: Yes
I performed a history and physical exam of patient and discussed management with resident, I reviewed resident's note and agree with documented findings and plan of care.: Yes
ED Attending Note:
43-year-old male with a history of diabetes, hypertension and chronic obesity who presents with low back pain. Also has had been having some pain into his right leg. He is hoping management Sunday. He is to be scheduled for an MRI. He was put on
baclofen. He states there is only been minimal relief. Patient of note has had this in the past. Exam: Normal distal perfusion. No focal motor deficits. Obese. No respiratory distress. Assessment/plan: Patient been here multiple times in the
past for pain control. Does not have well-controlled diabetes and do not think steroids is a good idea. Recommend NSAIDs and outpatient follow-up
Discharge Plan
Departure
Patient Disposition: Home (Routine Discharge)
Date of Disposition: 06/29/24
Time of Disposition: 19:17
Patient with high blood pressure during this ER visit?: Yes
Condition: Good
Discharge Problem:
Low back pain
Instructions: Low Back Pain (DC), Sciatica (DC)
Prescriptions:
New
tramadol 50 mg tablet
50 mg PO TID PRN (Reason: Pain) Qty: 5 0RF
No Action
metformin 1,000 MG tablet
1,000 mg PO BID@0800,1700 Qty: 60 0RF
acetaminophen 325 mg Tablet
650 mg PO Q4HPRN PRN (Reason: mild pain/BURGESS/temp> 100.4F) Qty: 0 0RF
lisinopril 20 MG tablet
40 mg PO DAILY Qty: 60 0RF
hydrochlorothiazide 12.5 mg Capsule
12.5 mg PO DAILY Qty: 30 0RF
repaglinide 1 mg Tablet
1 mg PO MEALS Qty: 90 0RF
celecoxib [Celebrex] 100 mg Capsule
100 mg PO BID
Wegovy 0.5 mg/0.5 mL Pen Injector
0.5 mg SC QWEEK
sulfamethoxazole-trimethoprim [Bactrim DS] 800-160 mg tablet
1 tab PO BID Qty: 10 0RF
oxycodone 5 mg tablet
5 mg PO Q6H PRN (Reason: Pain) Qty: 6 0RF
Referrals:
Kadi Bland MD [Family Provider] -
Activity Restrictions/Additional Instructions:
Rest as much as possible. No strenuous activities or heavy lifting. Follow-up with primary, pain management and spine surgery. Return back for worsening pain, fever, nausea, vomiting, weakness or difficulty walking.
Interventions
Interventions:
*Risk Screen - Suicide Last Done: 06/29/24 16:50
*General Assessment Last Done: 06/29/24 18:00
*Neglect/Abuse Screening Last Done: 06/29/24 16:50
ED- Fall Risk Assessment Last Done: 06/29/24 19:33
*ED COVID-19 Vaccine History Last Done: 06/29/24 18:00
*Nursing Disposition Last Done: 06/29/24 19:33
ED-Musculoskeletal Assessment Last Done: 06/29/24 18:00
Discharge Date and Time
Discharge Date/Time: 06/29/24 19:33
Print Language: PAKISTANI
[2024-06-29] MEDS: ULTRAM 50 MG PO (18:36)
[2024-06-29 19:33] VITALS: BP 148/74
== END 2024-06-29 19:33 | disposition home or self-care (01) ==
LOC: EMR 16:45
PROVIDERS: EMERGENCY PHYSICIAN Emergency Medicine; FAMILY PHYSICIAN Student in an Organized Health Care Education/Training Program
DX: M54.50 Low back pain, unspecified (principal); I10 Essential (primary) hypertension; E11.9 Type 2 diabetes mellitus without complications; F17.200 Nicotine dependence, unspecified, uncomplicated
CPT/HCPCS: 99283; 72110

== ENCOUNTER 2024-07-04 11:45 | Emergency (ER) | payer OTHER, SELFPAY ==
[2024-07-04 11:48] VITALS: BP 136/89
[2024-07-04 12:10] VITALS: BMI 47.3
--- NOTE | 2024-07-04 12:44 | ED.GENMED ---
History of Present Illness
General
Chief Complaint: Back Pain
Source: patient
Exam Limitations: none
Time Seen by Provider: 07/04/24 12:14
History of Present Illness
History of Present Illness:
This is a 43yo male with hx of DM, obesity, chronic back pain who presents with persistent chronic back pain. He reports he was seen by a pain management and was given muscle relaxers. He states that he was crying in pain last night. He tried to
call his painter today states that no one called him back. Denies any new symptoms. Has persistent low back pain that sometimes radiates down his leg. Of note he has been seen here for back pain several times in the past. He
states he is mostly concerned because he cannot work and his family depends on him. No bladder or bowel incontinence
Past History
Past History
ED Past Medical History: HTN, Hypercholesterolemia, IDDM, Psychiatric (Depression) and Other (history of pancreatitis, obesity)
ED Past Surgical History: Cholecystectomy, Orthopedic and Other (Previous abscess drainage)
Social History
Tobacco: Smoker
Alcohol: Occasional
Drug: None
Personal: Single
Living: with family
Employment: Not employed ([employer])
Family History
Family History: Diabetes; Negative CAD
Phy Exam
Physical Exam
Physical Exam:
CONSTITUTIONAL Vital signs reviewed, Patient alert and oriented to person, place and time. Well-appearing. Obese
HEAD atraumatic, normocephalic.
EYES eyelids normal to inspection, Extraocular muscles intact, Conjunctiva normal, Sclera normal.
NECK normal range of motion, Trachea midline, no jugular venous distention.
RESP no respiratory distress
BACK No obvious deformities
UPPER EXTREMITY Gross Range of motion normal, gross motor strength normal
LOWER EXTREMITY Gross range of motion normal, Gross motor strength normal
NEURO Speech normal, No focal motor deficits include, Carrie coma scale 15, Memory normal, Cranial Nerves intact to screening exam.
SKIN Skin warm, dry, and normal in color.
PSYCHIATRIC Patient oriented to person place and time, Normal affect.
Course
Orders/Labs/Results
Orders:
Orders
07/04/24 12:41
Ketorolac [Toradol] 60 mg IM NOW STA
Vital Signs
Initial and Last Documented VS:
Initial Vital Signs
Temp Pulse Resp BP Pulse Ox
98.4 F 112 16 136/89 99
07/04/24 11:48 07/04/24 11:48 07/04/24 11:48 07/04/24 11:48 07/04/24 11:48
Last Documented Vital Signs
Temp Pulse Resp BP Pulse Ox
98.4 F 112 16 136/89 99
07/04/24 11:48 07/04/24 11:48 07/04/24 11:48 07/04/24 11:48 07/04/24 11:48
MDM/Problems Addressed
MDM/Problems Addressed:
Chronic back pain
*Pulse Oximetry
Patient hypoxic: no
*Critical Care Note
Total Time (30-74mins, 75-104mins- exclusive of procedures): Not Applicable
Data Reviewed
Source: patient
Prescriptions/Medications Considered But Not Given:
Consider steroids with patient is diabetic and I am afraid of hyperglycemia
Patient Management
Escalation/DeEscalation of care consider admission/obs:
Considered further pain medication but patient is followed by pain management has been seen here in the past. In addition, considered steroids but patient is diabetic I am concerned about hyperglycemia. I did family and marriage counsellor patient on his prior visit
that the emergency department cannot continue to manage his chronic pain. The patient at that time agreed and had asked for just a few to get him to pain management. I do feel that is important that there is one prescriber and that pain management
follows him along. Recommended NSAIDs as needed. Patient was attempting to call pain management back again while in the emergency department. He has no evidence of cauda equina syndrome. He has no evidence of any neurologic deficit
ED Attending Note
-
Portions of this chart may have been created with voice recognition software.� Occasional wrong word or��sound alike� substitutions may have occurred due to the inherent limitations of voice recognition software.
Discharge Plan
Departure
Patient Disposition: Home (Routine Discharge)
Date of Disposition: 07/04/24
Time of Disposition: 12:48
Patient with high blood pressure during this ER visit?: Yes
Discharge Problem:
Chronic back pain
Instructions: Low Back Pain (DC), BLOOD PRESSURE
Prescriptions:
No Action
metformin 1,000 MG tablet
1,000 mg PO BID@0800,1700 Qty: 60 0RF
acetaminophen 325 mg Tablet
650 mg PO Q4HPRN PRN (Reason: mild pain/BURGESS/temp> 100.4F) Qty: 0 0RF
lisinopril 20 MG tablet
40 mg PO DAILY Qty: 60 0RF
hydrochlorothiazide 12.5 mg Capsule
12.5 mg PO DAILY Qty: 30 0RF
repaglinide 1 mg Tablet
1 mg PO MEALS Qty: 90 0RF
celecoxib [Celebrex] 100 mg Capsule
100 mg PO BID
Wegovy 0.5 mg/0.5 mL Pen Injector
0.5 mg SC QWEEK
sulfamethoxazole-trimethoprim [Bactrim DS] 800-160 mg tablet
1 tab PO BID Qty: 10 0RF
oxycodone 5 mg tablet
5 mg PO Q6H PRN (Reason: Pain) Qty: 6 0RF
tramadol 50 mg tablet
50 mg PO TID PRN (Reason: Pain) Qty: 5 0RF
Referrals:
Makenzie Dye DO [Family Provider] -
Activity Restrictions/Additional Instructions:
It is important that you follow-up with your painter. Continue anti-inflammatories as discussed. Continue current pain medications but discuss further management with your painter. Return for motor weakness,
urinary incontinence, bowel incontinence, fevers or any other concerns.
Interventions
Interventions:
*Risk Screen - Suicide Last Done: 07/04/24 11:48
*General Assessment Last Done: 07/04/24 11:48
*Neglect/Abuse Screening Last Done: 07/04/24 11:48
ED- Fall Risk Assessment Last Done: 07/04/24 12:07
*ED COVID-19 Vaccine History Last Done: 07/04/24 11:48
ED-Musculoskeletal Assessment Last Done: 07/04/24 12:07
Discharge Date and Time
Print Language: KINYARWANDA
[2024-07-04] MEDS: TORADOL 60 MG IM (12:47)
[2024-07-04 13:06] VITALS: BP 124/81
== END 2024-07-04 13:07 | disposition home or self-care (01) ==
LOC: EMR 11:45
PROVIDERS: EMERGENCY PHYSICIAN Emergency Medicine; FAMILY PHYSICIAN Family Medicine
DX: G89.29 Other chronic pain (principal); M54.50 Low back pain, unspecified; E11.9 Type 2 diabetes mellitus without complications; E66.9 Obesity, unspecified; E78.00 Pure hypercholesterolemia, unspecified; I10 Essential (primary) hypertension; F17.200 Nicotine dependence, unspecified, uncomplicated; Z83.3 Family history of diabetes mellitus; Z90.49 Acquired absence of other specified parts of digestive tract
CPT/HCPCS: 99282; 96372

== ENCOUNTER → 2024-07-08 19:21 | Outpatient (REF) | payer OTHER, SELFPAY | LOC: PAVMRI 19:21 | PROVIDERS: ATTENDING PHYSICIAN Physician Assistant; FAMILY PHYSICIAN Orthopaedic Surgery | DX: M54.16 Radiculopathy, lumbar region (principal) | CPT/HCPCS: 72148 ==

== ENCOUNTER 2024-07-23 15:52 | Emergency (ER) | payer OTHER, SELFPAY ==
[2024-07-23 15:54] VITALS: BP 171/108
[2024-07-23] MEDS: NORCO 5/325 1 TABLET PO (18:41)
[2024-07-23] MEDS: KEFLEX 500 MG PO (18:41)
[2024-07-23 19:09] LABS: % Basophils 0.5 % (0-2); % Eosinophils 1.8 % (0-6); % Immature Granulocytes 0.3 % (0-0.5); % Lymphocytes 30.2 % (20.5-51.1); % Monocytes 6.3 % (1.7-9.3); % Neutrophils 60.9 % (42.2-75.2); Absolute Basophils 0.1 10^3/uL (0-0.2); Absolute Eosinophils 0.2 10^3/uL (0-0.7); Absolute Lymphocytes 3.3 10^3/uL (1.2-3.4); Absolute Monocytes 0.7 10^3/uL (0.1-0.6); Absolute Neutrophils 6.7 10^3/uL (1.4-6.5); Hematocrit 42.7 % (39.0-52.0); Hemoglobin 14.5 g/dL (13.0-18.0); Mean Corpuscular Hgb 31.4 pg (27.0-31.0); Mean Corpuscular Volume 92.4 fL (80.0-94.0); Nucleated Red Blood Cells % 0 % (-); Platelet Count 220 10^3/uL (130-400); Red Blood Cell Count 4.62 10^6/uL (4.70-6.10)
[2024-07-23 19:24] LABS: ALT (SGPT) 72 U/L (0-50); AST (SGOT) 75 U/L (17-59); Albumin 3.8 g/dl (3.5-5.0); Alkaline Phosphatase 116 U/L (38-126); Blood Urea Nitrogen 8 mg/dl (9-20); Calcium 9.1 mg/dl (8.4-10.2); Carbon Dioxide 26 mmol/L (22-30); Chloride 102 mmol/L (98-107); Glucose 173 mg/dl (70-99); Potassium 4.2 mmol/L (3.5-5.1); Sodium 140 mmol/L (135-145); Total Bilirubin 0.5 mg/dl (0.2-1.3); Total Protein 7.5 g/dl (6.3-8.2); eGFR > 60.00
[2024-07-23 20:49] VITALS: BP 170/85
--- NOTE | 2024-07-23 23:39 | ED.GENMED ---
History of Present Illness
General
Chief Complaint: Back Pain
Source: patient
Exam Limitations: none
Time Seen by Provider: 07/23/24 18:16
Nursing documentation reviewed up to this point in time: agreed with
History of Present Illness
History of Present Illness:
Patient to eD with complaint of coccyx pain. Has had low back pain for some time but reports this pain is different, started 3-4 days ago. Denies feverchills. Brought to ED by family for eval.
Past History
Past History
ED Past Medical History: HTN, Hypercholesterolemia, IDDM, Psychiatric (Depression) and Other (history of pancreatitis, obesity)
ED Past Surgical History: Cholecystectomy, Orthopedic and Other (Previous abscess drainage)
Social History
Tobacco: Smoker
Alcohol: Occasional
Drug: None
Personal: Single
Living: with family
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
Family History
Family History: Diabetes; Negative CAD
Review of Systems
Review of Systems
Allergies reviewed?: Yes
All Other Systems: ROS reviewed and negative except as documented in HPI and ROS
Constitutional: Reports no symptoms
Musculoskeletal: Reports no symptoms
Skin: Reports other (small pilonidal cyst)
Neurological: Reports no symptoms
Psychiatric: Reports no symptoms
Phy Exam
General Physical Exam
General Presentation: well appearing and mild distress
General age: appears stated age
General Skin: warm and dry
General Habitus: normal
General Mental: alert
General Hydration: appears well hydrated
Musculoskeletal Exam
Musculoskeletal Exam: full ROM and neuro vasc intact
Skin Exam
Skin Exam: other (small area of pain and swelling consistent with pilonidalcyst formation.)
Psychiatric Exam
Psychiatric Exam: normal mood/affect
Course
Orders/Labs/Results
Orders:
Orders
07/23/24 18:27
Hydrocodone 5/APAP 325 [[place] 5/325] 1 tablet PO NOW STA
07/23/24 18:31
Cephalexin Monohydrate [Keflex] 500 mg PO NOW STA
07/23/24 18:53
Complete Blood Count/With Diff Urgent
Comprehensive Metabolic Panel Urgent
07/23/24 18:57
Wound Culture [Wound/Abscess/Other Culture] Urgent
[facility]AI Source: Buttock
Specimen Description:
Date Specimen was Collected: 07/23/24
Time Specimen was Collected: 18:54
Abnormal Lab Results
07/23/24
18:53
WBC 11.0 H 10^3/uL
(4.8-10.8)
RBC 4.62 L 10^6/uL
(4.70-6.10)
MCH 31.4 H pg
(27.0-31.0)
MPV 11.0 H fL
(7.4-10.4)
Absolute Neuts (auto) 6.7 H 10^3/uL
(1.4-6.5)
Absolute Monos (auto) 0.7 H 10^3/uL
(0.1-0.6)
BUN 8 L mg/dl
(9-20)
Creatinine 0.5 L mg/dL
(0.7-1.3)
Glucose 173 H mg/dl
(70-99)
AST 75 H U/L
(17-59)
ALT 72 H U/L
(0-50)
07/23/24 18:53
07/23/24 18:53
Vital Signs
Initial and Last Documented VS:
Initial Vital Signs
Temp Pulse Resp BP Pulse Ox
98.3 F 98 20 171/108 98
07/23/24 15:54 07/23/24 15:54 07/23/24 15:54 07/23/24 15:54 07/23/24 15:54
Last Documented Vital Signs
Temp Pulse Resp BP Pulse Ox
98.3 F 82 18 170/85 98
07/23/24 15:54 07/23/24 20:49 07/23/24 20:49 07/23/24 20:49 07/23/24 20:49
Procedures
Incision/Drainage/Joint Aspiration
Pilonidal cyst:
Anethesia: 1% Lidocaine with Epi
Preparation: cleaned with Betadine
Type of procedure: incise and drain
Nature of site: abscess
Description of abscess: less than 3cm
How much fluid was obtained?: small amount
Fluid description: purulent
Treatment: antibiotics started
*Critical Care Note
Total Time (30-74mins, 75-104mins- exclusive of procedures): Not Applicable
ED Attending Note
-
Portions of this chart may have been created with voice recognition software.� Occasional wrong word or��sound alike� substitutions may have occurred due to the inherent limitations of voice recognition software.
Discharge Plan
Departure
Patient Disposition: Home (Routine Discharge)
Date of Disposition: 07/23/24
Time of Disposition: 19:31
Patient with high blood pressure during this ER visit?: No
Condition: Good
Covid-19: Not Applicable
Discharge Problem:
Pilonidal cyst
Instructions: Abscess Incision and Drainage, Pilonidal Cyst (DC)
Prescriptions:
New
cephalexin 500 mg capsule
500 mg PO TID 10 Days Qty: 30 0RF
hydrocodone-acetaminophen 5-325 mg tablet
1 tab PO Q4H PRN (Reason: Pain) Qty: 10 0RF
No Action
metformin 1,000 MG tablet
1,000 mg PO BID@0800,1700 Qty: 60 0RF
acetaminophen 325 mg Tablet
650 mg PO Q4HPRN PRN (Reason: mild pain/BURGESS/temp> 100.4F) Qty: 0 0RF
lisinopril 20 MG tablet
40 mg PO DAILY Qty: 60 0RF
hydrochlorothiazide 12.5 mg Capsule
12.5 mg PO DAILY Qty: 30 0RF
repaglinide 1 mg Tablet
1 mg PO MEALS Qty: 90 0RF
celecoxib [Celebrex] 100 mg Capsule
100 mg PO BID
Wegovy 0.5 mg/0.5 mL Pen Injector
0.5 mg SC QWEEK
sulfamethoxazole-trimethoprim [Bactrim DS] 800-160 mg tablet
1 tab PO BID Qty: 10 0RF
oxycodone 5 mg tablet
5 mg PO Q6H PRN (Reason: Pain) Qty: 6 0RF
tramadol 50 mg tablet
50 mg PO TID PRN (Reason: Pain) Qty: 5 0RF
Referrals:
Kadi Bland MD [Primary Care Provider] -
Tyron Larios MD [Active] - Next open appointment
UNKNOWN - PT DOES,NOT KNOW [Family Provider] -
Interventions
Interventions:
*Risk Screen - Suicide Last Done: 07/23/24 15:54
*General Assessment Last Done: 07/23/24 16:58
*Neglect/Abuse Screening Last Done: 07/23/24 15:54
*Nursing Disposition Last Done: 07/23/24 20:49
ED-Musculoskeletal Assessment Last Done: 07/23/24 16:58
Discharge Date and Time
Discharge Date/Time: 07/23/24 20:53
Print Language: MARTINIQUA[place]
== END 2024-07-23 20:53 | disposition home or self-care (01) ==
LOC: EMR 15:52
PROVIDERS: Nurse Practitioner; EMERGENCY PHYSICIAN Emergency Medicine; PRIMARYCARE PHYSICIAN Student in an Organized Health Care Education/Training Program
DX: L05.91 Pilonidal cyst without abscess (principal); I10 Essential (primary) hypertension; E11.9 Type 2 diabetes mellitus without complications; E78.00 Pure hypercholesterolemia, unspecified; E66.9 Obesity, unspecified; F32.A Depression, unspecified; M54.50 Low back pain, unspecified; M19.90 Unspecified osteoarthritis, unspecified site; F17.200 Nicotine dependence, unspecified, uncomplicated; Z79.4 Long term (current) use of insulin; Z90.49 Acquired absence of other specified parts of digestive tract
CPT/HCPCS: 10080; 99283; 80053; 85025; 87070; 87205

== ENCOUNTER 2024-10-12 18:34 | Emergency (ER) | payer SELFPAY ==
[2024-10-12 18:36] VITALS: BP 179/109
[2024-10-12] MEDS: TORADOL 15 MG IV (19:47)
[2024-10-12 19:54] VITALS: BP 126/83
[2024-10-12 19:57] LABS: % Basophils 0.5 % (0-2); % Immature Granulocytes 0.4 % (0-0.5); % Lymphocytes 27.6 % (20.5-51.1); % Monocytes 6.5 % (1.7-9.3); Absolute Basophils 0.1 10^3/uL (0-0.2); Absolute Eosinophils 0.1 10^3/uL (0-0.7); Absolute Monocytes 0.7 10^3/uL (0.1-0.6); Hematocrit 47.4 % (39.0-52.0); Hemoglobin 15.9 g/dL (13.0-18.0); Mean Corp Hgb Conc. 33.5 g/dL (33.0-37.0); Mean Corpuscular Hgb 30.8 pg (27.0-31.0); Mean Corpuscular Volume 91.7 fL (80.0-94.0); Mean Platelet Volume 10.9 fL (7.4-10.4); Nucleated Red Blood Cells % 0 % (-); Platelet Count 239 10^3/uL (130-400); Red Blood Cell Count 5.17 10^6/uL (4.70-6.10); Red Cell Dist. Width 12.7 % (11.5-14.5)
[2024-10-12 20:00] VITALS: BP 138/84
[2024-10-12 20:11] LABS: Blood Urea Nitrogen 15 mg/dl (9-20); Calcium 9.7 mg/dl (8.4-10.2); Carbon Dioxide 31 mmol/L (22-30); Chloride 97 mmol/L (98-107); Glucose 157 mg/dl (70-99); Sodium 136 mmol/L (135-145); eGFR > 60.00
[2024-10-12 20:18] LABS: Potassium 3.9 mmol/L (3.5-5.1)
[2024-10-12 20:22] LABS: Troponin I < 0.012 ng/ml
[2024-10-12 21:00] VITALS: BP 145/93
[2024-10-12] MEDS: TYLENOL 1000 MG PO (21:23)
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
[2024-10-12] MEDS: ROXICODONE 5 MG PO (21:56)
== END 2024-10-12 22:03 | disposition home or self-care (01) ==
LOC: EMR 18:34
PROVIDERS: EMERGENCY PHYSICIAN Emergency Medicine; FAMILY PHYSICIAN Student in an Organized Health Care Education/Training Program
DX: S22.32XA Fracture of one rib, left side, initial encounter for closed fracture (principal); R10.9 Unspecified abdominal pain; R07.9 Chest pain, unspecified; I45.10 Unspecified right bundle-branch block; R00.0 Tachycardia, unspecified; V49.9XXA Car occupant (driver) (passenger) injured in unspecified traffic accident, initial encounter; Y92.410 Unspecified street and highway as the place of occurrence of the external cause; E11.9 Type 2 diabetes mellitus without complications; I10 Essential (primary) hypertension; E78.00 Pure hypercholesterolemia, unspecified; F32.A Depression, unspecified; E66.9 Obesity, unspecified; F17.200 Nicotine dependence, unspecified, uncomplicated; Z79.4 Long term (current) use of insulin; Z87.19 Personal history of other diseases of the digestive system; Z90.49 Acquired absence of other specified parts of digestive tract
CPT/HCPCS: 99285; 96374; 70450; 71260; 72125; 74177; 80048; 84484; 85025; 93005; Q9967

== ENCOUNTER 2024-10-16 09:36 | Emergency (ER) | payer SELFPAY ==
[2024-10-16 09:50] VITALS: BP 163/103
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
[2024-10-16] MEDS: TORADOL 30 MG IM (11:50)
[2024-10-16 11:58] VITALS: BMI 47.1
[2024-10-16 13:07] VITALS: BP 148/82
[2024-10-16] MEDS: DILAUDID 1 MG IM (13:15)
== END 2024-10-16 13:20 | disposition home or self-care (01) ==
LOC: EMR 09:36
PROVIDERS: EMERGENCY PHYSICIAN Emergency Medicine; FAMILY PHYSICIAN Family Medicine
DX: S22.32XA Fracture of one rib, left side, initial encounter for closed fracture (principal); V49.9XXA Car occupant (driver) (passenger) injured in unspecified traffic accident, initial encounter; I10 Essential (primary) hypertension; E78.00 Pure hypercholesterolemia, unspecified; E11.9 Type 2 diabetes mellitus without complications; Z90.49 Acquired absence of other specified parts of digestive tract; Z79.4 Long term (current) use of insulin; F17.200 Nicotine dependence, unspecified, uncomplicated
CPT/HCPCS: 96372; 99284; 74022; 93005

== ENCOUNTER 2025-01-20 13:07 | Emergency (ER) | payer OTHER, SELFPAY ==
[2025-01-20 13:09] VITALS: BP 174/103
[2025-01-20 13:16] VITALS: BMI 45.2
--- NOTE | 2025-01-20 14:30 | ED.SKININJ ---
HPI-Injury
General
Chief Complaint: Skin Problem
Source: patient
Exam Limitations: none
Time Seen by Provider: 01/20/25 14:05
Nursing documentation reviewed up to this point in time: agreed with
History of Present Illness-Injury
Is this injury a work related problem?: No
Is pt an associate of [facility]?: No
Initial Injury comments:
Patient to ED with complaint of abscess to right abdominal pannus crease. Symptoms started approx 5 days ago. Denies fever/chills. Has had multiple abscesses in past. Brought to ED by sister for eval.
Past History
Past History
ED Past Medical History: HTN, Hypercholesterolemia, IDDM, Psychiatric (Depression) and Other (history of pancreatitis, obesity)
ED Past Surgical History: Cholecystectomy, Orthopedic and Other (Previous abscess drainage)
Social History
Tobacco: Smoker
Alcohol: Occasional
Drug: None
Personal: Single
Living: with family
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
Family History
Family History: Diabetes; Negative CAD
Review of Systems
Review of Systems
Allergies reviewed?: Yes
All Other Systems: ROS reviewed and negative except as documented in HPI and ROS
Constitutional: Reports no symptoms
EENT: Reports no symptoms
Respiratory: Reports no symptoms
Cardiac: Reports no symptoms
ABD/GI: Reports no symptoms
: Reports no symptoms
Musculoskeletal: Reports no symptoms
Skin: Reports other (abscess at crease of abdominal pannus on rigght)
Neurological: Reports no symptoms
Skin Exam
Abscess
Right abdominal panuus crease:
Description of abscess: fluctuant
Surrounding skin:: inflammed at abscess site
Phy Exam
General Physical Exam
General Presentation: mild distress
General age: appears stated age
General Skin: warm and dry
General Habitus: normal
General Mental: alert
Gastrointestinal Exam
Gastrointestinal Exam: non tender and soft
Musculoskeletal Exam
Musculoskeletal Exam: full ROM
Skin Exam
Skin Exam: normal color, warm/dry and no rash
Psychiatric Exam
Psychiatric Exam: normal mood/affect
Course
Orders/Labs/Results
Orders:
Orders
01/20/25 14:24
Cephalexin Monohydrate [Keflex] 500 mg PO NOW STA
01/20/25 14:25
Wound Culture [Wound/Abscess/Other Culture] Urgent
CHAI Source: Abscess
Specimen Description:
Vital Signs
Initial and Last Documented VS:
Initial Vital Signs
Temp Pulse Resp BP Pulse Ox
98.9 F 115 18 174/103 98
01/20/25 13:09 01/20/25 13:09 01/20/25 13:09 01/20/25 13:09 01/20/25 13:09
Last Documented Vital Signs
Temp Pulse Resp BP Pulse Ox
98.9 F 115 18 174/103 98
01/20/25 13:09 01/20/25 13:09 01/20/25 13:09 01/20/25 13:09 01/20/25 13:09
Procedures
Incision/Drainage/Joint Aspiration
Right abdominal pannus crease:
Anethesia: 1% Lidocaine with Epi
Preparation: cleaned with Betadine
Type of procedure: incise and drain
Nature of site: abscess
Description of abscess: greater than 3cm
Loculations broken up: Yes
How much fluid was obtained?: large amount
Fluid description: purulent
Treatment: left open for drainage and antibiotics started
*Critical Care Note
Total Time (30-74mins, 75-104mins- exclusive of procedures): Not Applicable
Update Note
Update Note:
Patient to ED for I&D of right abdominal pannus crease abscess. Injected with lidocaine 1% with epi and drained iw #11 blade. Culture sent. Placed on keflex 500mg qid. He will continue wound care and warm compresses at home. Given
instructions on s/s to return to ED and he is agreeable to plan.
ED Attending Note
-
Portions of this chart may have been created with voice recognition software.� Occasional wrong word or��sound alike� substitutions may have occurred due to the inherent limitations of voice recognition software.
Discharge Plan
Departure
Patient Disposition: Home (Routine Discharge)
Date of Disposition: 01/20/25
Time of Disposition: 14:25
Patient with high blood pressure during this ER visit?: No
Condition: Good
Covid-19: Not Applicable
Discharge Problem:
Hidradenitis suppurativa, Abscess of skin of abdomen
Instructions: Wound Care (DC), Skin abscess drainage - Discharge instructions, Skin Abscess
Prescriptions:
New
hydrocodone-acetaminophen 5-325 mg tablet
1 tab PO Q4H PRN (Reason: Pain) Qty: 10 0RF
cephalexin 500 mg capsule
500 mg PO Q6H 10 Days Qty: 40 0RF
No Action
metformin 1,000 MG tablet
1,000 mg PO BID@0800,1700 Qty: 60 0RF
acetaminophen 325 mg Tablet
650 mg PO Q4HPRN PRN (Reason: mild pain/BURGESS/temp> 100.4F) Qty: 0 0RF
lisinopril 20 MG tablet
40 mg PO DAILY Qty: 60 0RF
hydrochlorothiazide 12.5 mg Capsule
12.5 mg PO DAILY Qty: 30 0RF
repaglinide 1 mg Tablet
1 mg PO MEALS Qty: 90 0RF
celecoxib [Celebrex] 100 mg Capsule
100 mg PO BID
Wegovy 0.5 mg/0.5 mL Pen Injector
0.5 mg SC QWEEK
sulfamethoxazole-trimethoprim [Bactrim DS] 800-160 mg tablet
1 tab PO BID Qty: 10 0RF
oxycodone 5 mg tablet
5 mg PO Q6H PRN (Reason: Pain) Qty: 6 0RF
tramadol 50 mg tablet
50 mg PO TID PRN (Reason: Pain) Qty: 5 0RF
cephalexin 500 mg capsule
500 mg PO TID 10 Days Qty: 30 0RF
hydrocodone-acetaminophen 5-325 mg tablet
1 tab PO Q4H PRN (Reason: Pain) Qty: 10 0RF
oxycodone 5 mg tablet
5 mg PO Q6H PRN (Reason: Pain) Qty: 12 0RF
oxycodone 5 mg tablet
5 - 10 mg PO Q8H PRN (Reason: Pain) Qty: 14 0RF
Referrals:
Makenzie Dye, [Family Provider] - Tomorrow
Activity Restrictions/Additional Instructions:
Return to the emergency department for fever/chills, increasing pain/redness/swelling to site, or for any further concerns.
Interventions
Interventions:
*Risk Screen - Suicide Last Done: 01/20/25 13:10
*General Assessment Last Done: 01/20/25 13:10
*Neglect/Abuse Screening Last Done: 01/20/25 13:10
*ED- Fall Risk Assessment Last Done: 01/20/25 13:16
*ED COVID-19 Vaccine History Last Done: 01/20/25 13:10
ED-Skin Assessment Last Done: 01/20/25 13:17
Discharge Date and Time
Print Language: URDU
[2025-01-20] MEDS: KEFLEX 500 MG PO (14:36)
== END 2025-01-20 14:48 | disposition home or self-care (01) ==
LOC: EMR 13:07
PROVIDERS: EMERGENCY PHYSICIAN Emergency Medicine; FAMILY PHYSICIAN Family Medicine
DX: L73.2 Hidradenitis suppurativa (principal); L02.211 Cutaneous abscess of abdominal wall; E11.9 Type 2 diabetes mellitus without complications; E78.00 Pure hypercholesterolemia, unspecified; I10 Essential (primary) hypertension; F17.200 Nicotine dependence, unspecified, uncomplicated; Z79.4 Long term (current) use of insulin; Z90.49 Acquired absence of other specified parts of digestive tract
CPT/HCPCS: 10060; 99283; 87070; 87205

== ENCOUNTER 2025-02-04 01:16 | Emergency (ER) | payer SELFPAY ==
[2025-02-04 01:20] VITALS: BP 155/93
--- NOTE | 2025-02-04 02:56 | ED.GENMED ---
History of Present Illness
General
Chief Complaint: Skin Problem
Source: patient
Exam Limitations: none
Time Seen by Provider: 02/04/25 01:57
Nursing documentation reviewed up to this point in time: agreed with
History of Present Illness
History of Present Illness:
44-year-old male with past medical history significant for hydradenitis suppurativa presents to the emergency department with an abscess in his abdomen. He states that it has been developing for the last 4 months but tonight the pain became severe.
Denies fever, chills nausea vomit . states that he has had multiple abscesses in the past. No recent antibiotics.
Past History
Past History
ED Past Medical History: HTN, Hypercholesterolemia, IDDM, Psychiatric (Depression) and Other (history of pancreatitis, obesity)
ED Past Surgical History: Cholecystectomy, Orthopedic and Other (Previous abscess drainage)
Social History
Tobacco: Smoker
Alcohol: Occasional
Drug: None
Personal: Single
Living: with family
Employment: Not employed ([employer])
Family History
Family History: Diabetes; Negative CAD
Phy Exam
General Physical Exam
General Presentation: well appearing and mild distress
General age: appears stated age
General Habitus: obese
General Mental: alert
General Hydration: appears well hydrated
ENT Exam
ENT Exam: EOMI and neck supple
Pulmonary Exam
Pulmonary Exam: lungs clear, no respiratory distress, chest non tender and no cough
Gastrointestinal Exam
Gastrointestinal Exam: normal bowel sounds, non tender, soft and other (small abscess on skin surface)
Neurological Exam
Neurological Exam: alert and oriented x3
Skin Exam
Skin Exam: redness (scant redness surrounding abscess)
Psychiatric Exam
Psychiatric Exam: normal mood/affect
Course
Orders/Labs/Results
Orders:
Orders
02/04/25 02:55
Oxycodone/Acetaminophen [Percocet 5/325] 1 tablet PO NOW STA
02/04/25 03:12
Doxycycline [Vibramycin] 100 mg PO NOW STA
Vital Signs
Initial and Last Documented VS:
Initial Vital Signs
Temp Pulse Resp BP Pulse Ox
98.9 F 110 20 155/93 99
02/04/25 01:20 02/04/25 01:20 02/04/25 01:20 02/04/25 01:20 02/04/25 01:20
Last Documented Vital Signs
Temp Pulse Resp BP Pulse Ox
98.9 F 99 18 145/90 97
02/04/25 01:20 02/04/25 03:53 02/04/25 03:53 02/04/25 03:53 02/04/25 03:53
Procedures
Incision/Drainage/Joint Aspiration
Upper Abdomen:
Anethesia: 1% Lidocaine
Preparation: cleaned with Hibiclens
Type of procedure: incise and drain
Nature of site: abscess
Description of abscess: greater than 3cm and complex
How much fluid was obtained?: number in mls (20)
Fluid description: purulent and blood tinged
Treatment: left open for drainage and antibiotics started
*Critical Care Note
Total Time (30-74mins, 75-104mins- exclusive of procedures): Not Applicable
ED Attending Note
-
Portions of this chart may have been created with voice recognition software.� Occasional wrong word or��sound alike� substitutions may have occurred due to the inherent limitations of voice recognition software.
Discharge Plan
Departure
Patient Disposition: Home (Routine Discharge)
Date of Disposition: 02/04/25
Time of Disposition: 03:27
Patient with high blood pressure during this ER visit?: Yes
Condition: Good
Discharge Problem:
Hidradenitis suppurativa, Cutaneous abscess of abdominal wall
Prescriptions:
New
doxycycline hyclate 100 mg capsule
100 mg PO BID 10 Days Qty: 20 0RF
oxycodone-acetaminophen [Percocet] 5-325 mg tablet
1 tab PO Q6HPRN PRN (Reason: pain) Qty: 10 0RF
No Action
metformin 1,000 MG tablet
1,000 mg PO BID@0800,1700 Qty: 60 0RF
acetaminophen 325 mg Tablet
650 mg PO Q4HPRN PRN (Reason: mild pain/BURGESS/temp> 100.4F) Qty: 0 0RF
lisinopril 20 MG tablet
40 mg PO DAILY Qty: 60 0RF
hydrochlorothiazide 12.5 mg Capsule
12.5 mg PO DAILY Qty: 30 0RF
repaglinide 1 mg Tablet
1 mg PO MEALS Qty: 90 0RF
celecoxib [Celebrex] 100 mg Capsule
100 mg PO BID
Wegovy 0.5 mg/0.5 mL Pen Injector
0.5 mg SC QWEEK
sulfamethoxazole-trimethoprim [Bactrim DS] 800-160 mg tablet
1 tab PO BID Qty: 10 0RF
oxycodone 5 mg tablet
5 mg PO Q6H PRN (Reason: Pain) Qty: 6 0RF
tramadol 50 mg tablet
50 mg PO TID PRN (Reason: Pain) Qty: 5 0RF
cephalexin 500 mg capsule
500 mg PO TID 10 Days Qty: 30 0RF
hydrocodone-acetaminophen 5-325 mg tablet
1 tab PO Q4H PRN (Reason: Pain) Qty: 10 0RF
oxycodone 5 mg tablet
5 mg PO Q6H PRN (Reason: Pain) Qty: 12 0RF
oxycodone 5 mg tablet
5 - 10 mg PO Q8H PRN (Reason: Pain) Qty: 14 0RF
hydrocodone-acetaminophen 5-325 mg tablet
1 tab PO Q4H PRN (Reason: Pain) Qty: 10 0RF
cephalexin 500 mg capsule
500 mg PO Q6H 10 Days Qty: 40 0RF
Referrals:
Makenzie Dye DO [Family Provider] -
Activity Restrictions/Additional Instructions:
[Your prescriptions were sent electronically to the pharmacy that you specified.]
Thank You for choosing [facility].
It was a pleasure meeting you and taking part in your care. We hope for your continued healing and wellness.
Please read discharge instructions in their entirety. However, they are for general education and may not describe your exact diagnosis at discharge. Information on your ER visit and medical conditions were discussed with you along with appropriate
follow up information...
If indicated, please take your medications as instructed and indicated on discharge paperwork.
Please schedule a follow up appointment as directed. Call to schedule an appointment
Please return to the emergency department with ANY change in, persisting, or worsening of symptoms. If any of your symptoms do not improve, or persist, or become more severe within 6-12 hours, please return to the emergency department for further
care.
Please return to the emergency department if you develop a headache, neck pain/stiffness, fever greater than 100.4F, chest pain, shortness of breath, persistent nausea, vomiting, slurred speech, difficulty walking, numbness/tingling, weakness, signs
of infection or any other symptoms that are worrisome to you.
If you have any questions or concerns please do not hesitate to call the Hospital at or E-mail me directly at [email or web address]
Interventions
Interventions:
*Risk Screen - Suicide Last Done: 02/04/25 01:20
*General Assessment Last Done: 02/04/25 03:22
*Neglect/Abuse Screening Last Done: 02/04/25 01:20
*ED- Fall Risk Assessment Last Done: 02/04/25 01:20
*ED COVID-19 Vaccine History Last Done: 02/04/25 01:20
*Nursing Disposition Last Done: 02/04/25 03:53
ED-Skin Assessment Last Done: 02/04/25 01:45
Discharge Date and Time
Discharge Date/Time: 02/04/25 03:54
Print Language: LATVIAN
[2025-02-04] MEDS: PERCOCET 5/325 1 TABLET PO (03:12)
[2025-02-04] MEDS: VIBRAMYCIN 100 MG PO (03:18)
[2025-02-04 03:21] VITALS: BMI 47.4
[2025-02-04 03:53] VITALS: BP 145/90
== END 2025-02-04 03:54 | disposition home or self-care (01) ==
LOC: EMR 01:16
PROVIDERS: EMERGENCY PHYSICIAN Student in an Organized Health Care Education/Training Program; FAMILY PHYSICIAN Family Medicine
DX: L73.2 Hidradenitis suppurativa (principal); L02.211 Cutaneous abscess of abdominal wall; I10 Essential (primary) hypertension; E11.9 Type 2 diabetes mellitus without complications; E78.00 Pure hypercholesterolemia, unspecified; F32.A Depression, unspecified; E66.9 Obesity, unspecified; M19.90 Unspecified osteoarthritis, unspecified site; F17.200 Nicotine dependence, unspecified, uncomplicated; Z90.49 Acquired absence of other specified parts of digestive tract; Z79.4 Long term (current) use of insulin
CPT/HCPCS: 99283; 10060

== ENCOUNTER 2025-03-16 22:39 | Emergency (ER) | payer SELFPAY ==
[2025-03-16 22:46] VITALS: BP 167/108
[2025-03-16 23:09] LABS: % Basophils 0.4 % (0-2); % Eosinophils 1.7 % (0-6); % Immature Granulocytes 0.5 % (0-0.5); % Lymphocytes 34.5 % (20.5-51.1); % Monocytes 6.9 % (1.7-9.3); Absolute Basophils 0.1 10^3/uL (0-0.2); Absolute Eosinophils 0.2 10^3/uL (0-0.7); Absolute Immature Granulocytes 0.1 10^3/uL (0-0.05); Absolute Lymphocytes 4.6 10^3/uL (1.2-3.4); Absolute Monocytes 0.9 10^3/uL (0.1-0.6); Absolute Neutrophils 7.4 10^3/uL (1.4-6.5); Hematocrit 47.9 % (39.0-52.0); Hemoglobin 16.3 g/dL (13.0-18.0); Mean Corpuscular Hgb 30.6 pg (27.0-31.0); Mean Corpuscular Volume 89.9 fL (80.0-94.0); Mean Platelet Volume 11.7 fL (7.4-10.4); Nucleated Red Blood Cells % 0 % (-); Platelet Count 209 10^3/uL (130-400); Red Blood Cell Count 5.33 10^6/uL (4.70-6.10); Red Cell Dist. Width 12.6 % (11.5-14.5); White Blood Cell Count 13.2 10^3/uL (4.8-10.8)
[2025-03-16 23:26] LABS: Blood Urea Nitrogen 15 mg/dl (9-20); Calcium 9.6 mg/dl (8.4-10.2); Carbon Dioxide 24 mmol/L (22-30); Chloride 105 mmol/L (98-107); Glucose 341 mg/dl (70-99); Potassium 4.2 mmol/L (3.5-5.1); Sodium 138 mmol/L (135-145); eGFR > 60.00
[2025-03-17 01:56] VITALS: BP 127/76
[2025-03-17 01:57] VITALS: BMI 47.4
[2025-03-17] MEDS: PERCOCET 5/325 1 TABLET PO (02:44)
[2025-03-17 03:00] VITALS: BP 121/80
--- NOTE | 2025-03-17 03:52 | ED.GENMED ---
History of Present Illness
<Teresa Boyce PA-C - Last Filed: 03/17/25 10:19>
General
Chief Complaint: Skin Problem
Source: patient
Exam Limitations: none
Time Seen by Provider: 03/17/25 03:51
Nursing documentation reviewed up to this point in time: agreed with
History of Present Illness
History of Present Illness:
This is a 44-year-old male with a past medical history of hiradenitis suppurativa , hypertension, hyperlipidemia, diabetes, who presents an emergency apartment with concerns of a abscess in his growing area and testicular pain. Patient has a history
of recurrent abscesses with his condition. He�s previously seen a die inspector in the past and started on Humira. Patient reports that he�s trying to make appointments anytime he has a flareup, however, he reports that it takes multiple months to
get in for an appointment. patient reports that the severity of his condition has caused him to lose his job and he is currently in between insurance coverage. He has seen our free clinic in the past. Patient Chinese appointment coming up.
Patient reports that he has an appointment at the welfare office tomorrow. He denies any fevers or chills, abdominal pain, nausea, vomiting, chest pain, shortness of breath. He denies any right side, testicular pain. He denies any penile pain or
drainage from the penis. He denies any burning with urination or dysuria.
Past History
<Teresa Boyce PA-C - Last Filed: 03/17/25 10:19>
Past History
ED Past Medical History: HTN, Hypercholesterolemia, IDDM, Psychiatric (Depression) and Other (history of pancreatitis, obesity)
ED Past Surgical History: Cholecystectomy, Orthopedic and Other (Previous abscess drainage)
Social History
Tobacco: Smoker
Alcohol: Occasional
Drug: None
Personal: Single
Living: with family
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
Family History
Family History: Diabetes; Negative CAD
Review of Systems
<Teresa Boyce PA-C - Last Filed: 03/17/25 10:19>
Review of Systems
All Other Systems: ROS reviewed and negative except as documented in HPI and ROS
Phy Exam
<CRISSY Mcgrath Last Filed: 03/17/25 10:19>
Physical Exam
Physical Exam:
General: Patient is well appearing and in no acute distress; non-toxic
Skin: Warm and dry, no rashes or lesions
Head: Normocephalic, atraumatic
Eyes: Sclera non-icteric. EOMs intact.
Cardiac: Regular rate and rhythm, no murmurs
Peripheral Vascular: No lower extremity swelling or edema
Pulm: Normal respiratory effort, no wheezes, rales, rhonchi
Abdomen: No abdominal tenderness to palpation
Genitourinary: external genitalia intact with no lesions. Area of fluctuance to the left of the scrotum noted.
Neuro: CN II-XII intact, no focal neurologic deficits.
Psychiatric: Appropriate mood and affect
Sepsis
<CRISSY Mcgrath Last Filed: 03/17/25 10:19>
Sepsis Screening
Sepsis Assessment: Sepsis
Sepsis Screen
Sepsis Screen: Sepsis
Date: 03/17/25
Time: 10:19
Course
<Teresa Boyce PA-C - Last Filed: 03/17/25 10:19>
Orders/Labs/Results
Orders:
Orders
03/16/25 22:54
BMP [Basic Metabolic Panel] Urgent
Complete Blood Count/With Diff Urgent
03/17/25 02:40
Oxycodone/Acetaminophen [Percocet 5/325] 1 tablet PO NOW STA
03/17/25 04:04
Ketorolac [Toradol] 30 mg IV NOW STA
US Scrotum Urgent
Comment:
Reason For Exam: left scrotal pain
03/17/25 05:37
HYDROmorphone [Dilaudid] 0.5 mg IV NOW STA
03/17/25 06:21
HYDROmorphone [Dilaudid] 0.5 mg IV NOW STA
Abnormal Lab Results
03/16/25
22:54
WBC 13.2 H 10^3/uL
(4.8-10.8)
MPV 11.7 H fL
(7.4-10.4)
Abs Immat Gran (auto) 0.1 H 10^3/uL
(0-0.05)
Absolute Neuts (auto) 7.4 H 10^3/uL
(1.4-6.5)
Absolute Lymphs (auto) 4.6 H 10^3/uL
(1.2-3.4)
Absolute Monos (auto) 0.9 H 10^3/uL
(0.1-0.6)
Creatinine 0.6 L mg/dL
(0.7-1.3)
Glucose 341 H mg/dl
(70-99)
03/16/25 22:54
03/16/25 22:54
Vital Signs
Initial and Last Documented VS:
Initial Vital Signs
Temp Pulse Resp BP Pulse Ox
98.3 F 119 16 167/108 98
03/16/25 22:46 03/16/25 22:46 03/16/25 22:46 03/16/25 22:46 03/16/25 22:46
Last Documented Vital Signs
Temp Pulse Resp BP Pulse Ox
98.3 F 119 16 133/88 96
03/16/25 22:46 03/16/25 22:46 03/16/25 22:46 03/17/25 06:00 03/17/25 06:30
<Dorota Crenshaw, DO - Last Filed: 03/17/25 06:59>
Orders/Labs/Results
Orders:
Orders
03/16/25 22:54
BMP [Basic Metabolic Panel] Urgent
Complete Blood Count/With Diff Urgent
03/17/25 02:40
Oxycodone/Acetaminophen [Percocet 5/325] 1 tablet PO NOW STA
03/17/25 04:04
Ketorolac [Toradol] 30 mg IV NOW STA
US Scrotum Urgent
Comment:
Reason For Exam: left scrotal pain
03/17/25 05:37
HYDROmorphone [Dilaudid] 0.5 mg IV NOW STA
03/17/25 06:21
HYDROmorphone [Dilaudid] 0.5 mg IV NOW STA
Abnormal Lab Results
03/16/25
22:54
WBC 13.2 H 10^3/uL
(4.8-10.8)
MPV 11.7 H fL
(7.4-10.4)
Abs Immat Gran (auto) 0.1 H 10^3/uL
(0-0.05)
Absolute Neuts (auto) 7.4 H 10^3/uL
(1.4-6.5)
Absolute Lymphs (auto) 4.6 H 10^3/uL
(1.2-3.4)
Absolute Monos (auto) 0.9 H 10^3/uL
(0.1-0.6)
Creatinine 0.6 L mg/dL
(0.7-1.3)
Glucose 341 H mg/dl
(70-99)
03/16/25 22:54
03/16/25 22:54
Vital Signs
Initial and Last Documented VS:
Initial Vital Signs
Temp Pulse Resp BP Pulse Ox
98.3 F 119 16 167/108 98
06/23/25 22:46 03/16/25 22:46 03/16/25 22:46 03/16/25 22:46 03/16/25 22:46
Last Documented Vital Signs
Temp Pulse Resp BP Pulse Ox
98.3 F 119 16 133/88 96
03/16/25 22:46 03/16/25 22:46 03/16/25 22:46 03/17/25 06:00 03/17/25 06:30
Procedures
<Teresa Boyce PA-C - Last Filed: 03/17/25 10:19>
Incision/Drainage/Joint Aspiration
Left Groin:
Anethesia: 1% Lidocaine with Epi
Preparation: cleaned with soap & water
Type of procedure: incise and drain
Nature of site: abscess
Description of abscess: less than 3cm
Loculations broken up: No
How much fluid was obtained?: large amount
Fluid description: cloudy and purulent
Treatment: left open for drainage
<Teresa Boyce PA-C - Last Filed: 03/17/25 10:19>
MDM/Problems Addressed
Differential Diagnosis Includes:
ddx include hs flare, abscess, cellulitis, testicular torsion
MDM/Problems Addressed:
44 y/o male presents to the ER today with concerns of scrotal pain. US reveals scrotal abscess. Case reviewed with urology. Decision was made to do bedside I+D by me. Procedure was successful. Wound left open for drainge. Patient started on
clindamycin.
<Teresa Boyce PA-C - Last Filed: 03/17/25 10:19>
*Pulse Oximetry
SaO2: 98
Oxygen Mode of Delivery: Room air
Patient hypoxic: no
*Critical Care Note
Total Time (30-74mins, 75-104mins- exclusive of procedures): Not Applicable
ED Attending Note
<Teresa Boyce PA-C - Last Filed: 03/17/25 10:19>
-
Portions of this chart may have been created with voice recognition software.� Occasional wrong word or��sound alike� substitutions may have occurred due to the inherent limitations of voice recognition software.
<Dorota Crenshaw DO - Last Filed: 03/17/25 06:59>
ED Attending Note
Patient seen and examined by attending physician: Yes
I performed a history and physical exam of patient and discussed management with resident, I reviewed resident's note and agree with documented findings and plan of care.: Yes
ED Attending Note:
44-year-old morbidly obese gentleman with history of amf-rgltibj-onwupelld diabetes, chronic pain syndrome�narcotic dependent, hidradenitis suppurativa previous hospitalizations for complex abscess formation various parts of his body. Presents with
3-day history of left scrotal pain, swelling. Has had similar episodes in the past. No recent antibiotics. He is afebrile and no reported recent fever. No dysuria.
44-year-old gentleman appears somewhat older than stated age, morbidly obese, overall appears in no acute distress.
Moderate hypertension noted initially has normalized. Remains afebrile.
Exam remarkable for several large follicles inflamed follicles left lateral scrotum with left lateral scrotal palpable firmness approximately 6 cm x 4 cm, moderately tender to palpation. There is no definitive pointing nor significant fluctuance.
Minimal local erythema but no axillary adenopathy nor extension of induration to the inguinal region. Left testicle is normal size and shape, nontender.
Concern for flare of hidraddenitis suppurativa, focal abscess. Nothing to suggest Clement's gangrene. Concern for early sepsis.
Labs show mildly elevated white blood cell count of 13.2. Moderately elevated random glucose of 341. Patient admits to noncompliance with diabetic medication. There is no acidosis.
Will medicate for pain and check scrotal ultrasound.
Consider local I&D and will plan to initiate antibiotics.
Discharge Plan
Departure
Patient Disposition: Home (Routine Discharge)
Date of Disposition: 03/17/25
Time of Disposition: 06:28
Patient with high blood pressure during this ER visit?: Yes
Condition: Fair
Discharge Problem:
Scrotal abscess
Instructions: Wound Care (DC), BLOOD PRESSURE, Skin Abscess
Prescriptions:
New
clindamycin HCl [Cleocin HCl] 300 mg capsule
300 mg PO Q6H 7 Days Qty: 28 0RF
oxycodone-acetaminophen [Percocet] 5-325 mg tablet
1 tab PO Q6HPRN PRN (Reason: pain) Qty: 6 0RF
No Action
metformin 1,000 MG tablet
1,000 mg PO BID@0800,1700 Qty: 60 0RF
acetaminophen 325 mg Tablet
650 mg PO Q4HPRN PRN (Reason: mild pain/BURGESS/temp> 100.4F) Qty: 0 0RF
lisinopril 20 MG tablet
40 mg PO DAILY Qty: 60 0RF
hydrochlorothiazide 12.5 mg Capsule
12.5 mg PO DAILY Qty: 30 0RF
repaglinide 1 mg Tablet
1 mg PO MEALS Qty: 90 0RF
celecoxib [Celebrex] 100 mg Capsule
100 mg PO BID
Wegovy 0.5 mg/0.5 mL Pen Injector
0.5 mg SC QWEEK
sulfamethoxazole-trimethoprim [Bactrim DS] 800-160 mg tablet
1 tab PO BID Qty: 10 0RF
oxycodone 5 mg tablet
5 mg PO Q6H PRN (Reason: Pain) Qty: 6 0RF
tramadol 50 mg tablet
50 mg PO TID PRN (Reason: Pain) Qty: 5 0RF
cephalexin 500 mg capsule
500 mg PO TID 10 Days Qty: 30 0RF
hydrocodone-acetaminophen 5-325 mg tablet
1 tab PO Q4H PRN (Reason: Pain) Qty: 10 0RF
oxycodone 5 mg tablet
5 mg PO Q6H PRN (Reason: Pain) Qty: 12 0RF
oxycodone 5 mg tablet
5 - 10 mg PO Q8H PRN (Reason: Pain) Qty: 14 0RF
hydrocodone-acetaminophen 5-325 mg tablet
1 tab PO Q4H PRN (Reason: Pain) Qty: 10 0RF
cephalexin 500 mg capsule
500 mg PO Q6H 10 Days Qty: 40 0RF
doxycycline hyclate 100 mg capsule
100 mg PO BID 10 Days Qty: 20 0RF
oxycodone-acetaminophen [Percocet] 5-325 mg tablet
1 tab PO Q6HPRN PRN (Reason: pain) Qty: 10 0RF
Referrals:
[facility] - Call in 1-3 days for appt
Makenzie Dye DO [Family Provider, Family Practice]
Activity Restrictions/Additional Instructions:
Clindamycin has been sent to your pharmacy. Please take 1 tablet every 6 hours for 7 days.
Please change dressing once daily.
PLEASE RETURN TO EMERGENCY DEPARTMENT SHOULD YOU DEVELOP FEVERS OR CHILLS, INTRACTABLE NAUSEA OR VOMITING, PERSISTENT PAIN, REDNESS OR RASHES, CHEST PAIN, SHORTNESS OF BREATH, OR ANY OTHER SIGNS OR SYMPTOMS WORRISOME TO YOU.
Interventions
Interventions:
*Risk Screen - Suicide Last Done: 03/16/25 22:46
*General Assessment Last Done: 03/17/25 01:57
*Neglect/Abuse Screening Last Done: 03/16/25 22:46
*ED- Fall Risk Assessment Last Done: 03/17/25 01:57
*ED COVID-19 Vaccine History Last Done: 03/17/25 01:57
*Nursing Disposition Last Done: 03/17/25 06:47
ED-Skin Assessment Last Done: 03/17/25 01:57
Discharge Date and Time
Discharge Date/Time: 03/17/25 06:50
Print Language: ARGENTINE
[2025-03-17 04:00] VITALS: BP 141/82
[2025-03-17] MEDS: TORADOL 30 MG IV (04:22)
[2025-03-17 05:00] VITALS: BP 135/91
[2025-03-17] MEDS: DILAUDID 0.5 MG IV ×2 (05:41→06:34)
[2025-03-17 06:00] VITALS: BP 133/88
== END 2025-03-17 06:50 | disposition home or self-care (01) ==
LOC: EMR 22:39
PROVIDERS: Emergency Medicine; EMERGENCY PHYSICIAN Emergency Medicine; FAMILY PHYSICIAN Family Medicine
DX: N49.2 Inflammatory disorders of scrotum (principal); I10 Essential (primary) hypertension; E78.00 Pure hypercholesterolemia, unspecified; E11.9 Type 2 diabetes mellitus without complications; F17.200 Nicotine dependence, unspecified, uncomplicated; E66.01 Morbid (severe) obesity due to excess calories; G89.4 Chronic pain syndrome; F11.20 Opioid dependence, uncomplicated; Z91.148 Patient's other noncompliance with medication regimen for other reason
CPT/HCPCS: 55100; 96374; 96375; 96376; 99284; 76870; 80048; 85025; 93976

== ENCOUNTER 2025-05-01 03:59 | Emergency (ER) | payer SELFPAY ==
[2025-05-01 04:03] VITALS: BP 174/106
--- NOTE | 2025-05-01 04:12 | ED.GENMED ---
History of Present Illness
General
Chief Complaint: Skin Problem
Source: patient
Exam Limitations: none
Time Seen by Provider: 05/01/25 04:12
Nursing documentation reviewed up to this point in time: agreed with
History of Present Illness
History of Present Illness:
Note:
CHIEF COMPLAINT(S)
Painful swelling on the lower side of the body with intermittent liquid drainage.
HISTORY OF PRESENT ILLNESS
The patient is a 44-year-old male presenting with a recurring painful swelling on the lower side of his body. PAtient has a hx of HS and comes frequently to the ED for abscess incision and drainage. He used to follow with a geography teacher for this
condition and take biologics however currently lacks insurance coverage and is not able to see a geography teacher. This acute episode been ongoing intermittently for approximately two weeks. The patient describes the sensation of 'liquid' within the
swelling, which sometimes drains slightly, but there is no purulent discharge. He reports that the swelling can increase in size and then reduce. The symptoms include occasional pain in the area, relieved temporarily with hot compresses. The patient
denies experiencing any fever during this period. The patient has a complex social situation concerning healthcare access as he currently does not have insurance and expresses difficulty in seeing a geography teacher or regular doctor. He reports that
cephalexin (Keflex) has been notably effective for his condition in the past. He denies fevers or chills, nausea or vomiting.
PHYSICAL EXAM
- Nursing notes reviewed and vital signs reviewed.
General: Patient is well appearing and in no acute distress; non-toxic
Skin: Warm and dry, small abscess noted in left pelvic region above the scrotum
Head: Normocephalic, atraumatic
Eyes: Sclera non-icteric. EOMs intact.
Cardiac: Regular rate
Pulm: Normal respiratory effort
Abdomen: No abdominal tenderness to palpation
Neuro: CN II-XII intact, no focal neurologic deficits.
Psychiatric: Appropriate mood and affect.
PLAN
- Initiate drainage of the swelling.
- Prescribe cephalexin (Keflex) as it has been effective for the patient in the past.
- Each visit patient is usually given a prescription for a few Percocet tablets to his pharmacy
- Note patient has been taking ibuprofen (Motrin), with the last dose taken at approximately 11:00 pm.
DIFFERENTIAL DIAGNOSIS
The Differential Diagnosis includes, in no particular order and is not limited to:
1. Abscess
2. Cyst
3. Folliculitis
4. Cellulitis
5. Foreign body reaction
6. Lipoma
7. Epidermal inclusion cyst
8. Hidradenitis suppurativa
9. Sebaceous cyst
10. Dermatofibroma
CHART REVIEW
reviewed previous ER physician documentation for similar symptoms
MDM/DISPO
The patient is a 44-year-old male presenting with a recurring painful swelling on the lower side of his body. He gets recurrent abscesses due to his history of HS. Today he has a small abscess noted to the left pelvic region above the scrotum. The
area was incised and drained. Patient states keflex has worked well for flares in the past. Patient stable for discharge. Strict return precautions discussed.
Past History
Past History
ED Past Medical History: HTN, Hypercholesterolemia, IDDM, Psychiatric (Depression) and Other (history of pancreatitis, obesity)
ED Past Surgical History: Cholecystectomy, Orthopedic and Other (Previous abscess drainage)
Social History
Tobacco: Smoker
Alcohol: Occasional
Drug: None
Personal: Single
Living: with family
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
Family History
Family History: Diabetes; Negative CAD
Review of Systems
Review of Systems
All Other Systems: ROS reviewed and negative except as documented in HPI and ROS
Phy Exam
Physical Exam
Physical Exam:
see hpi
Course
Orders/Labs/Results
Orders:
Orders
05/01/25 04:23
Oxycodone/Acetaminophen [Percocet 5/325] 1 tablet PO NOW STA
05/01/25 04:58
Cephalexin Monohydrate [Keflex] 500 mg PO NOW STA
Ibuprofen [Motrin] 600 mg PO NOW STA
Vital Signs
Initial and Last Documented VS:
Initial Vital Signs
Temp Pulse Resp BP Pulse Ox
99.0 F 102 20 174/106 98
05/01/25 04:03 05/01/25 04:03 05/01/25 04:03 05/01/25 04:03 05/01/25 04:03
Last Documented Vital Signs
Temp Pulse Resp BP Pulse Ox
99.0 F 102 20 137/83 98
05/01/25 04:03 05/01/25 04:03 05/01/25 04:03 05/01/25 04:28 05/01/25 04:30
Procedures
Incision/Drainage/Joint Aspiration
left groin:
Anethesia: 1% Lidocaine with Epi
Preparation: cleaned with Betadine
Type of procedure: incise and drain
Nature of site: abscess
Description of abscess: less than 3cm
Loculations broken up: Yes
How much fluid was obtained?: small amount
Fluid description: cloudy and purulent
Treatment: left open for drainage
*Pulse Oximetry
SaO2: 98
Oxygen Mode of Delivery: Room air
Patient hypoxic: no
*Critical Care Note
Total Time (30-74mins, 75-104mins- exclusive of procedures): Not Applicable
ED Attending Note
-
Portions of this chart may have been created with voice recognition software.� Occasional wrong word or��sound alike� substitutions may have occurred due to the inherent limitations of voice recognition software.
Discharge Plan
Departure
Patient Disposition: Home (Routine Discharge)
Date of Disposition: 05/01/25
Time of Disposition: 05:43
Patient with high blood pressure during this ER visit?: Yes
Condition: Good
Discharge Problem:
Abscess of pelvis, Hidradenitis suppurativa
Instructions: BLOOD PRESSURE, Skin Abscess
Prescriptions:
New
cephalexin 500 mg capsule
500 mg PO TID 7 Days Qty: 21 0RF
oxycodone-acetaminophen [Percocet] 5-325 mg tablet
1 tab PO Q6HPRN PRN (Reason: pain) Qty: 8 0RF
No Action
metformin 1,000 MG tablet
1,000 mg PO BID@0800,1700 Qty: 60 0RF
lisinopril 20 MG tablet
40 mg PO DAILY Qty: 60 0RF
hydrochlorothiazide 12.5 mg Capsule
12.5 mg PO DAILY Qty: 30 0RF
repaglinide 1 mg Tablet
1 mg PO MEALS Qty: 90 0RF
Rx Instructions:
1 mg in AM, 2 mg at lunch and dinner
celecoxib [Celebrex] 100 mg Capsule
100 mg PO BID
Wegovy 0.5 mg/0.5 mL Pen Injector
0.5 mg SC QWEEK
Rx Instructions:
currently not using due to insurance
hydrocodone-acetaminophen 5-325 mg tablet
1 tab PO Q4H PRN (Reason: Pain) Qty: 10 0RF
Referrals:
NONE,* [Family Provider, Internal Medicine]
Activity Restrictions/Additional Instructions:
Please follow[facility]up with [facility]. Please take ibuprofen as needed for pain. Should you have breakthrough pain, you can take 1 Percocet tablet every 6 hours as needed. Please obtain. Please take 1 tablet 3 times daily for 7 days.
PLEASE RETURN EMERGENCY DEPARTMENT SHOULD YOU DEVELOP FOR THE SURROUNDING REDNESS, INCREASING PAIN, INABILITY TO AMBULATE, FEVERS OR CHILLS, NAUSEA OR VOMITING, ABDOMINAL PAIN, CHEST PAIN, SHORTNESS OF BREATH, OR ANY OTHER SIGNS OR SYMPTOMS
WORRISOME TO YOU.
Interventions
Interventions:
*Risk Screen - Suicide Last Done: 05/01/25 04:03
*General Assessment Last Done: 05/01/25 04:22
*Neglect/Abuse Screening Last Done: 05/01/25 04:03
*ED- Fall Risk Assessment Last Done: 05/01/25 04:03
*ED COVID-19 Vaccine History Last Done: 05/01/25 04:03
*Nursing Disposition Last Done: 05/01/25 05:50
ED-Skin Assessment Last Done: 05/01/25 05:53
Discharge Date and Time
Discharge Date/Time: 05/01/25 05:54
Print Language: EMIRATI
[2025-05-01 04:22] VITALS: BMI 46.7
[2025-05-01 04:28] VITALS: BP 137/83
[2025-05-01] MEDS: PERCOCET 5/325 1 TABLET PO (04:32)
[2025-05-01] MEDS: KEFLEX 500 MG PO (05:15)
[2025-05-01] MEDS: MOTRIN 600 MG PO (05:15)
== END 2025-05-01 05:54 | disposition home or self-care (01) ==
LOC: EMR 03:59
PROVIDERS: EMERGENCY PHYSICIAN Emergency Medicine
DX: L02.214 Cutaneous abscess of groin (principal); L73.2 Hidradenitis suppurativa; I10 Essential (primary) hypertension; Z59.71 Insufficient health insurance coverage; E11.9 Type 2 diabetes mellitus without complications; F17.200 Nicotine dependence, unspecified, uncomplicated
CPT/HCPCS: 99282; 10060

== ENCOUNTER 2025-06-17 22:46 | Emergency (ER) | payer SELFPAY ==
[2025-06-17 22:48] VITALS: BP 168/105
[2025-06-17 23:58] VITALS: BMI 42.1
--- NOTE | 2025-06-18 01:11 | ED.GENMED ---
History of Present Illness
General
Chief Complaint: Skin Problem
Source: patient
Time Seen by Provider: 06/18/25 00:54
History of Present Illness
History of Present Illness:
44-year-old male presents emergency room complaining of abscess in his left groin. Patient has frequent ER visits for these abscesses. Patient states his follow-up with dermatology is limited due to his insurance. He has been having an abscess in
this area on and off for couple months. No fever or chills. He was recently prescribed a course of Keflex but the abscess recurred.
Past History
Past History
ED Past Medical History: HTN, Hypercholesterolemia, IDDM, Psychiatric (Depression) and Other (history of pancreatitis, obesity)
ED Past Surgical History: Cholecystectomy, Orthopedic and Other (Previous abscess drainage)
Social History
Tobacco: Smoker
Alcohol: Occasional
Drug: None
Personal: Single
Living: with family
Employment: Not employed ([employer])
Family History
Family History: Diabetes; Negative CAD
Phy Exam
Physical Exam
Physical Exam:
General: Awake, Alert, Oriented X3. Appears somewhat uncomfortable, high BMI
Vitals: unremarkable
Head: Atraumatic
Eyes: Pupils equal, EOMI
Throat: Airway intact, no exudates
Neck: Trachea midline
Lungs: Clear and equal b/l
Heart: Regular rate, no murmurs
Skin: Warm, dry, no rash. Left groin abscess. Area of fluctuance is approximately 1 cm x 2 cm. There is some surrounding erythema and induration.
Extremities: pulses equal b/l, no edema
Course
Orders/Labs/Results
Orders:
Orders
06/18/25 01:09
Amoxicillin 875 mg/Clav 125 mg [Augmentin 875 mg/125 mg] 1 tablet PO NOW STA
Oxycodone [Roxicodone] 5 mg PO NOW STA
Vital Signs
Initial and Last Documented VS:
Initial Vital Signs
Temp Pulse Resp BP Pulse Ox
98.9 F 107 16 168/105 98
06/17/25 22:48 06/17/25 22:48 06/17/25 22:48 06/17/25 22:48 06/17/25 22:48
Last Documented Vital Signs
Temp Pulse Resp BP Pulse Ox
98.9 F 107 16 168/105 98
06/17/25 22:48 06/17/25 22:48 06/17/25 22:48 06/17/25 22:48 06/18/25 01:12
Procedures
Incision/Drainage/Joint Aspiration
Left Groin:
Anethesia: 1% Lidocaine with Epi
Preparation: cleaned with Betadine
Type of procedure: incise
Nature of site: abscess
Description of abscess: less than 3cm
Loculations broken up: Yes
How much fluid was obtained?: small amount
Fluid description: purulent
Treatment: left open for drainage, packed with gauze and antibiotics started
MDM/Problems Addressed
Differential Diagnosis Includes:
Abscess, cellulitis
MDM/Problems Addressed:
Patient presents with left groin abscess. Lesion was incised and drained. Efforts made to break up loculations and express as much purulence as possible. Small amount of packing inserted to keep the wound open given its recurrence. Patient has
had previous abscess cultured. Typically grows Proteus. This bacteria has been pansensitive to everything except Bactrim. Because he was recently on Keflex we will change to Augmentin.
*Pulse Oximetry
SaO2: 98
Oxygen Mode of Delivery: Room air
Patient hypoxic: no
*Critical Care Note
Total Time (30-74mins, 75-104mins- exclusive of procedures): Not Applicable
ED Attending Note
-
Portions of this chart may have been created with voice recognition software.� Occasional wrong word or��sound alike� substitutions may have occurred due to the inherent limitations of voice recognition software.
Discharge Plan
Departure
Patient Disposition: Home (Routine Discharge)
Date of Disposition: 06/18/25
Time of Disposition: 01:11
Patient with high blood pressure during this ER visit?: Yes
Condition: Good
Discharge Problem:
Cutaneous abscess of groin
Instructions: Skin Abscess
Prescriptions:
New
amoxicillin-pot clavulanate 875-125 mg tablet
1 tab PO BID Qty: 14 0RF
No Action
metformin 1,000 MG tablet
1,000 mg PO BID@0800,1700 Qty: 60 0RF
lisinopril 20 MG tablet
40 mg PO DAILY Qty: 60 0RF
hydrochlorothiazide 12.5 mg Capsule
12.5 mg PO DAILY Qty: 30 0RF
repaglinide 1 mg Tablet
1 mg PO MEALS Qty: 90 0RF
Rx Instructions:
1 mg in AM, 2 mg at lunch and dinner
celecoxib [Celebrex] 100 mg Capsule
100 mg PO BID
Wegovy 0.5 mg/0.5 mL Pen Injector
0.5 mg SC QWEEK
Rx Instructions:
currently not using due to insurance
Referrals:
NONE,* [Family Provider, Internal Medicine]
Interventions
Interventions:
*Risk Screen - Suicide Last Done: 06/17/25 22:48
*General Assessment Last Done: 06/17/25 22:48
*Neglect/Abuse Screening Last Done: 06/17/25 22:48
*ED- Fall Risk Assessment Last Done: 06/17/25 22:48
*ED COVID-19 Vaccine History Last Done: 06/17/25 22:48
Discharge Date and Time
Print Language: [id number]
[2025-06-18] MEDS: AUGMENTIN 875 MG/125 MG 1 TABLET PO (01:30)
[2025-06-18] MEDS: ROXICODONE 5 MG PO (01:30)
== END 2025-06-18 01:35 | disposition home or self-care (01) ==
LOC: EMR 22:46
PROVIDERS: EMERGENCY PHYSICIAN Emergency Medicine
DX: L02.214 Cutaneous abscess of groin (principal); E11.9 Type 2 diabetes mellitus without complications; I10 Essential (primary) hypertension; E78.00 Pure hypercholesterolemia, unspecified; E66.9 Obesity, unspecified; Z68.41 Body mass index [BMI] 40.0-44.9, adult; F32.A Depression, unspecified; F17.200 Nicotine dependence, unspecified, uncomplicated; Z79.84 Long term (current) use of oral hypoglycemic drugs; Z83.3 Family history of diabetes mellitus
CPT/HCPCS: 99283; 10060